=== PATIENT | female | born 1960 | race Caucasian/White ===

== ENCOUNTER 2016-05-22 08:49 | Day surgery (SDC) | payer OTHER ==
[2016-05-16 11:47] VITALS: BMI 25.9
[2016-05-22 09:14] VITALS: TEMP 98.6
[2016-05-22] MEDS ORDERED: IV FLUID CONTINUATION 400 ML IV ONE (10:14)
[2016-05-22] MEDS ORDERED: BENZOCAINE SPRAY 100 APPLIC/CAN MUCOUS MEM ONE ×2 (10:14→10:17)
[2016-05-22] MEDS ORDERED: MIDAZOLAM 2 MG/2 ML VIAL IVP ONE (10:21)
[2016-05-22] MEDS ORDERED: fentaNYL (PF) 50 MCG/ML 2 ML AMP IV ONE (10:21)
[2016-05-22] MEDS: MIDAZOLAM 2 MG/2 ML VIAL IV ONE ×2 (10:23→10:25)
[2016-05-22 11:07] VITALS: RESP 16
--- NOTE | 2016-05-22 11:26 | ECHOT ---
DATE OF SERVICE: 05/22/2016 PERFORMING PHYSICIAN: Serafin Chung MD, aqua ammonia operator. PROCEDURE PERFORMED: Transesophageal echocardiogram. INDICATION: This is a pleasant 55-year-old female patient who underwent transthoracic echocardiogram in the office, which showed mitral valve prolapse with moderate to severe MR. The SKYLER is for better clarification. COMPLICATIONS: None. LEVEL OF SEDATION: Moderate, and the patient was given a total of 3 mg of Versed on divided doses. PROCEDURE DESCRIPTION: After obtaining an informed consent, explaining the procedure, benefits, risks, complications and alternatives, the patient was brought to the transesophageal echocardiogram suite. A pulse oximetry and heart rate monitors were attached to the patient prior to the procedure. The patient's throat was sprayed using lidocaine locally. Following that, the patient was turned into left lateral position. A bite guard was placed and the patient was then sedated with the above doses of Versed and fentanyl in divided doses. Following that, the transesophageal echocardiogram probe was advanced through the bite guard into the mid esophagus where 2-D echocardiogram images as well as color Doppler images of various cardiac structures were obtained. We evaluated the interatrial septum using 2-D echocardiogram, color Doppler, and contrast study. The procedure was completed. There were no complications. FINDINGS: Left ventricular dimension and systolic function appeared to be within normal limits. Ejection fraction seems to be in the range of 55% to 60%. The right ventricle is of normal size and function. The left atrium appeared to be mildly dilated. The left atrial appendage appeared to be free from any thrombus. The interatrial septum appeared to be intact. The mitral valve appeared to be mildly thickened with evidence of moderate MR. There is moderate tricuspid regurgitation seen with mild pulmonary hypertension and RVSP of 42 mmHg. The aortic valve appeared to be trileaflet valve without stenosis or regurgitation. CONCLUSION: 1. Normal left ventricular dimension and systolic function. 2. Normal right ventricular dimension and systolic function. 3. Mild biatrial enlargement. 4. Normal left atrial appendage without any evidence of thrombus. 5. Intact interatrial septum without any evidence of shunt. 6. Mildly thickened mitral valve leaflets with moderate mitral regurgitation. 7. Moderate tricuspid regurgitation. 8. Mild pulmonary hypertension. 9. Normal aortic valve without evidence of stenosis or regurgitation. 10. Normal aortic root dimension.
[2016-05-22 11:29] VITALS: BP 109/60; PULSE 62
== END 2016-05-22 11:56 | disposition home or self-care (01) ==
LOC: CATHCVL 08:49
PROVIDERS: ATTEND Internal Medicine Interventional Cardiology
DX: I08.1 Rheumatic disorders of both mitral and tricuspid valves (principal); I27.2 Other secondary pulmonary hypertension; I10 Essential (primary) hypertension; E78.5 Hyperlipidemia, unspecified; Z87.891 Personal history of nicotine dependence; Z82.3 Family history of stroke; Z82.49 Family history of ischemic heart disease and other diseases of the circulatory system; Z79.82 Long term (current) use of aspirin; Z79.899 Other long term (current) drug therapy
CPT/HCPCS: 99152; 93312; 93320; 93325; J2250; J3010

== ENCOUNTER 2018-06-30 14:07 | Emergency (ER) | payer OTHER ==
[2018-06-30] MEDS ORDERED: MORPHINE SULFATE 4 MG/ML SYRINGE IV STA (14:54)
[2018-06-30] MEDS ORDERED: METOCLOPRAMIDE 5 MG/ML 2 ML VIAL IVP STA (14:54)
[2018-06-30] MEDS ORDERED: diphenhydrAMINE 50 MG/ML 1 ML VIAL IVP STA (14:54)
[2018-06-30] MEDS ORDERED: SODIUM CHLORIDE 0.9% 1,000 ML IV STA (14:54)
--- NOTE | 2018-06-30 15:08 | ED ---
General Adult HPI - General Chief complaint: Headache Stated complaint: Dizzy,nausea, headache,weak Time Seen by Provider: 06/30/18 14:31 Source: patient, RN notes reviewed, old records reviewed Mode of arrival: wheelchair Limitations: no limitations - History of Present Illness Initial comments: 57-year-old female patient with past medical history of hyperlipidemia, hypertension, mitral valve prolapse presents to ED with 5 days of waxing and waning left temporal/left frontal lobe headache. Patient reports that she first noticed this headache on 06/26. Patient reports that she went to her primary care physician, she was administered Toradol which improved the headache and she was discharged without further intervention. Patient reports that on 06/27 she presented to urgent care with this complaint of headache, patient reports that they were concerned about a complaint of her left temporal artery location and she was referred to ophthalmology. Patient reports that she has had waxing and waning headaches in the same location until today. Patient reports that she had a appointment with her flat surfacer today and it was requested that she presented to flat surfacer in [place] for a temporal artery biopsy. Patient reports that she cancel this appointment and will follow-up with a general surgeon in this region who will perform the temporal artery biopsy. Patient presents to ER for further evaluation. Patient denies changes in thunderclap, vision, fevers, emesis, diarrhea, chest pain, shortness of breath, abdominal pain. Patient does complain of some nausea without emesis. Systemic: Pt denies fatigue, myalgia, fever/chills, rash. Pt denies weakness, night sweats, weight loss. Neuro: Pt denies visual disturbances, syncope or pre-syncope. HEENT: Pt denies ocular discharge or irritation, otalgia, rhinorrhea, pharyngitis or notable lymphadenopathy. Cardiopulmonary: Pt denies chest pain, SOB, heart palpitations, dyspnea on exertion. Abdominal/GI: Pt denies abdominal pain, v/d. : Pt denies dysuria, burning w/ urination, frequency/urgency. Denies new onset urinary or bowel incontinence. MSK: Pt denies myalgia, loss of strength or function in extremities. Neuro: Pt denies new onset weakness, paresthesias. - Related Data Home Medications Medication Instructions Recorded Confirmed Fish Oil/Dha/Epa [Fish Oil 1,200 1 each PO DAILY 04/01/16 06/30/18 mg Fish Oil] Multivitamins, Thera [Multivitamin 1 tab PO DAILY 04/01/16 06/30/18 (formulary)] Vitamin B Complex 1 each PO DAILY 04/01/16 06/30/18 Butalb/Acetaminophen/Caffeine 1 cap PO Q4HR PRN 06/30/18 06/30/18 [Fioricet 50-300-40 mg Capsule] Carvedilol [Coreg] 6.25 - 12.5 mg PO TID 06/30/18 06/30/18 Doxycycline [Vibramycin] 100 mg PO BID 06/30/18 06/30/18 LORazepam [Ativan] 1 mg PO HS PRN 06/30/18 06/30/18 cloNIDine HCL [Catapres] 0.1 mg PO DAILY PRN 06/30/18 06/30/18 hydrALAZINE HCL [Apresoline] 50 mg PO TID 06/30/18 06/30/18 Allergies Allergy/AdvReac Type Severity Reaction Status Date / Time ciprofloxacin [From Cipro] Allergy Unknown Verified 06/30/18 14:45 nifedipine [From Procardia] Allergy Swelling Verified 06/30/18 14:45 Review of Systems ROS Statement: Those systems with pertinent positive or pertinent negative responses have been documented in the HPI. ROS Other: All systems not noted in ROS Statement are negative. Past Medical History Past Medical History: GERD/Reflux, Hyperlipidemia, Hypertension, Mitral Valve Prolapse (MVP), Osteoarthritis (OA) Additional Past Medical History / Comment(s): SOB, hiatal hernia History of Any Multi-Drug Resistant Organisms: None Reported Past Surgical History: Cholecystectomy, Heart Catheterization Additional Past Surgical History / Comment(s): laparoscopies Past Anesthesia/Blood Transfusion Reactions: No Reported Reaction, Family History of Problems w/ Anesthesia Additional Past Anesthesia/Blood Transfusion Reaction / Comment(s): mom has a hard time coming out Past Psychological History: Anxiety Smoking Status: Former smoker Past Alcohol Use History: Daily Past Drug Use History: None Reported - Past Family History Mother Family Medical History: Hyperlipidemia, Hypertension Father Family Medical History: Mitral Valve Prolapse (MVP) Additional Family Medical History / Comment(s): brain bleed General Exam - General Exam Comments Initial Comments: Constitutional: NAD, AOX3, Pt has pleasant affect. HEENT: NC/AT, trachea midline, neck supple, no lymphadenopathy. Posterior pharynx non erythematous, without exudates. External ears appear normal, without discharge. Mucous membranes moist. Eyes PERRLA, EOM intact. There is no scleral icterus. No pallor noted. Cardiopulmonary: RRR, no murmurs, rubs or gallops, no JVD noted. Lungs CTAB in anterior and posterior nelson. No peripheral edema. L temporal region mildly tender to palpation, no erythema, no warmth, no palpable cord. Abdominal exam: Abdomen soft and non-distended. Abdomen non-tender to palpation in all 4 quadrants. Bowel sounds active in LLQ. No hepatosplenomegaly. No ecchymosis Neuro: CN II-XII intact. No nuchal rigidity. No focal deficit, no facial droop. MSK: No posterior calf tenderness bilaterally, homans sign negative bilaterally. Posterior tibialis and radial pulse +2 bilaterally. Sensation intact in upper and lower extremities. Full active ROM in upper and lower extremities, 5/5 stregnth. Limitations: no limitations Course Vital Signs 06/30/18 14:12 Temperature 98.4 F Pulse Rate 70 Respiratory 18 Rate Blood Pressure 142/84 O2 Sat by Pulse 99 Oximetry Medical Decision Making - Medical Decision Making 57-year-old female patient with past medical history of hyperlipidemia, hypertension, mitral valve prolapse presents to ED with 5 days of waxing and waning left temporal/left frontal lobe headache. Patient reports that she first noticed this headache on 06/26. Patient reports that she went to her primary care physician, she was administered Toradol which improved the headache and she was discharged without further intervention. Patient reports that on 06/27 she presented to urgent care with this complaint of headache, patient reports that they were concerned about a complaint of her left temporal artery location and she was referred to ophthalmology. Patient reports that she has had waxing and waning headaches in the same location until today. Patient reports that she had a appointment with her flat surfacer today and it was requested that she presented to flat surfacer in [place] for a temporal artery biopsy. Patient reports that she cancel this appointment and will follow-up with a general surgeon in this region who will perform the temporal artery biopsy. Patient presents to ER for further evaluation. Patient denies changes in vision, fevers, emesis, diarrhea, chest pain, shortness of breath, abdominal pain. Patient does complain of some nausea without emesis. Patient vital signs stable, afebrile. Physical exam displayed: CN II-XII intact. No nuchal rigidity. No focal deficit, no facial droop. L temporal region mildly tender to palpation, no erythema, no warmth, no palpable cord. Laboratory investigations revealed noncompressive CBC, BMP. CRP less than 5.0. ESR 7. EKG not concerning for acute ischemia. Patient headache resolved with pharmacologic intervention. Patient to return with follow-up with primary care provider. Patient will follow-up with flat surfacer tomorrow noted to have a temporal artery biopsy performed. Patient also referred to on-call ophthalmology. Patient to return to ER if new signs symptoms develop or if condition worsens in any way. Case discussed with Dr. Delatorre. - Lab Data Result diagrams: 06/30/18 15:30 06/30/18 15:30 Lab Results 06/30/18 06/30/18 Range/Units 15:30 15:30 WBC 3.0 L (3.8-10.6) k/uL RBC 4.45 (3.80-5.40) m/uL Hgb 14.0 (11.4-16.0) gm/dL Hct 43.5 (34.0-46.0) % MCV 97.8 (80.0-100.0) fL MCH 31.5 (25.0-35.0) pg MCHC 32.3 (31.0-37.0) g/dL RDW 12.4 (11.5-15.5) % Plt Count 246 (150-450) k/uL Neutrophils % 46 % Lymphocytes % 41 % Monocytes % 5 % Eosinophils % 3 % Basophils % 1 % Neutrophils # 1.4 (1.3-7.7) k/uL Lymphocytes # 1.2 (1.0-4.8) k/uL Monocytes # 0.2 (0-1.0) k/uL Eosinophils # 0.1 (0-0.7) k/uL Basophils # 0.0 (0-0.2) k/uL ESR 7 (0-20) mm/hr Sodium 139 (137-145) mmol/L Potassium 4.8 (3.5-5.1) mmol/L Chloride 106 (98-107) mmol/L Carbon Dioxide 23 (22-30) mmol/L Anion Gap 10 mmol/L BUN 14 (7-17) mg/dL Creatinine 0.58 (0.52-1.04) mg/dL Est GFR (CKD-EPI)AfAm >90 (>60 ml/min/1.73 sqM) Est GFR (CKD-EPI)NonAf >90 (>60 ml/min/1.73 sqM) Glucose 89 (74-99) mg/dL Calcium 10.2 (8.4-10.2) mg/dL C-Reactive Protein <5.0 (<10.0) mg/L - EKG Data -: EKG Interpreted by Me (and dr delatorre ) EKG Comments: Ventricular rate 72,. 07/14/1948, QRS 100, QT/QTc 4:30/470. Normal sinus rhythm, normal EKG, no concerns for acute ischemia. Disposition Clinical Impression: Acute headache Disposition: HOME SELF-CARE Condition: Stable Instructions (If sedation given, give patient instructions): Acute Headache (ED) Additional Instructions: Patient to adhere to previously discussed treatment plan and will take medication(s) as directed. Patient to follow up with PCP in 1-2 days. Patient to return to ED if symptoms do not improve. Please follow-up with flat surfacer tomorrow in order to have temporal artery biopsy performed. Please follow-up with primary care provider tomorrow for further evaluation. On-call ophthalmology referral provided if unable to establish care with previously offered flat surfacer. Return to ER if condition worsens in any way. Is patient prescribed a controlled substance at d/c from ED?: No Referrals: Dorina Mckeon MD [Primary Care Provider] - 1-2 days Sri Cooper MD [STAFF PHYSICIAN] - 1-2 days
[2018-06-30 15:55] LABS: Basophils % (A) 1 %; Eosinophils # (A) 0.1 k/uL (0-0.7); Eosinophils % (A) 3 %; HCT 43.5 % (34.0-46.0); Lymphocytes # (A) 1.2 k/uL (1.0-4.8); Lymphocytes % (A) 41 %; MCH 31.5 pg (25.0-35.0); MCHC 32.3 g/dL (31.0-37.0); MCV 97.8 fL (80.0-100.0); Mean Platelet Volume 6.2; Monocytes # (A) 0.2 k/uL (0-1.0); Monocytes % (A) 5 %; Neutrophils # (A) 1.4 k/uL (1.3-7.7); Neutrophils % (A) 46 %; Platelet Count 246 k/uL (150-450); RBC 4.45 m/uL (3.80-5.40); RDW 12.4 % (11.5-15.5)
[2018-06-30 16:06] LABS: Anion Gap 10 mmol/L; Blood Urea Nitrogen 14 mg/dL (7-17); C Reactive Protein <5.0 mg/L (<10.0); Calcium 10.2 mg/dL (8.4-10.2); Carbon Dioxide 23 mmol/L (22-30); Chloride 106 mmol/L (98-107); Glucose 89 mg/dL (74-99); Potassium 4.8 mmol/L (3.5-5.1); Sodium 139 mmol/L (137-145)
--- NOTE | 2018-06-30 16:17 | CT ---
EXAMINATION TYPE: CT brain wo con DATE OF EXAM: 06/30/2018 COMPARISON: None HISTORY: 57-year-old female Headache for 4-5 days with weakness. TECHNIQUE: Examination was done in axial plane without intravenous contrast. Coronal and sagittal r econstructions performed. CT DLP: 1142.4 mGycm Automated exposure control for dose reduction was used. FINDINGS: There is no evidence of acute intracranial hemorrhage, acute ischemic changes, mass, mass-effect, or extra-axial fluid collection. There is no effacement of cerebral sulci or basal subarachnoid cister ns. There is no hydrocephalus. There is no midline shift. Baird-white matter distinction is preserv ed. Normal variation with mild hyperostosis frontalis interna. Trace mucosal thickening and air cells. Mastoid air cells are well pneumatized. Orbits and globes are intact. IMPRESSION: No acute intracranial abnormality seen. Trace chronic ethmoid sinus disease.
[2018-06-30 16:50] LABS: Erythrocyte Sedimentation Rate 7 mm/hr (0-20)
[2018-06-30 17:44] VITALS: RESP 20
[2018-06-30 18:40] VITALS: BP 133/80; PULSE 56; TEMP 98
== END 2018-06-30 18:35 | disposition home or self-care (01) ==
LOC: EC 14:07
DX: R51 Headache (principal); R53.1 Weakness; R11.0 Nausea; R42 Dizziness and giddiness; I10 Essential (primary) hypertension; I34.1 Nonrheumatic mitral (valve) prolapse; Z95.818 Presence of other cardiac implants and grafts; Z87.891 Personal history of nicotine dependence; Z79.899 Other long term (current) drug therapy; Z88.1 Allergy status to other antibiotic agents; Z88.8 Allergy status to other drugs, medicaments and biological substances
CPT/HCPCS: 36415; 93005; 80048; 85652; 85025; 86140; 70450; 99285; 96374; 96375 ×2; 96361; J2270; J1200; J2765

== ENCOUNTER 2018-11-11 15:37 | Observation (INO) | payer OTHER ==
[2018-11-11] MEDS ORDERED: ASPIRIN 81 MG PO STA (16:08)
[2018-11-11] MEDS ORDERED: NITROGLYCERIN OINT 1 INCH/GM PACKET TOPICAL STA (16:08)
--- NOTE | 2018-11-11 16:11 | ED ---
General Adult HPI - General Chief complaint: Chest Pain Stated complaint: DIZZINESS, CHEST PAIN, LEFT ARM PAIN Time Seen by Provider: 11/11/18 15:54 Source: patient, RN notes reviewed Mode of arrival: wheelchair Limitations: no limitations - History of Present Illness Initial comments: Patient is a pleasant 58-year-old female presenting to the emergency Department with chest discomfort. Onset of symptoms was this morning. Symptoms have been present throughout most the day. Symptoms are improved somewhat and currently discomfort is 4/10. Discomfort is described as pressure. There is some radiation to the neck. Patient does have history of similar symptoms previously associated with heart attack in July. Patient was at [facility] several days ago with similar symptoms. Patient does have some associated dyspnea. No nausea or diaphoresis. - Related Data Home Medications Medication Instructions Recorded Confirmed Fish Oil/Dha/Epa [Fish Oil 1,200 1 each PO DAILY 04/01/16 11/11/18 mg Fish Oil] Multivitamins, Thera [Multivitamin 1 tab PO DAILY 04/01/16 11/11/18 (formulary)] Vitamin B Complex 1 each PO DAILY 04/01/16 11/11/18 hydrALAZINE HCL [Apresoline] 50 mg PO TID 06/30/18 11/11/18 Aspirin [Ozone Aspirin EC] 81 mg PO DAILY 11/11/18 11/11/18 Atorvastatin [Lipitor] 10 mg PO HS 11/11/18 11/11/18 Carvedilol [Coreg] 12.5 mg PO BID 11/11/18 11/11/18 LORazepam [Ativan] 1 mg PO TID PRN 11/11/18 11/11/18 Nitroglycerin Sl Tabs [Nitrostat] 0.4 mg SL Q5M PRN 11/11/18 11/11/18 Spironolactone [Aldactone] 25 mg PO DAILY 11/11/18 11/11/18 Allergies Allergy/AdvReac Type Severity Reaction Status Date / Time ciprofloxacin [From Cipro] Allergy Unknown Verified 11/11/18 16:03 morphine Allergy Unknown Verified 11/11/18 16:03 nifedipine [From Procardia] Allergy Swelling Verified 11/11/18 16:03 Review of Systems ROS Statement: Those systems with pertinent positive or pertinent negative responses have been documented in the HPI. ROS Other: All systems not noted in ROS Statement are negative. Constitutional: Denies: fever Eyes: Denies: eye pain ENT: Denies: ear pain Respiratory: Reports: dyspnea Cardiovascular: Reports: chest pain Endocrine: Denies: fatigue Gastrointestinal: Denies: abdominal pain Genitourinary: Denies: dysuria Musculoskeletal: Denies: back pain Skin: Denies: rash Neurological: Denies: weakness Past Medical History Past Medical History: Coronary Artery Disease (CAD), GERD/Reflux, Hyperlipidemia, Hypertension, Myocardial Infarction ([place]), Mitral Valve Prolapse (MVP), Osteoarthritis (OA) Additional Past Medical History / Comment(s): SOB, hiatal hernia History of Any Multi-Drug Resistant Organisms: None Reported Past Surgical History: Cholecystectomy, Heart Catheterization Additional Past Surgical History / Comment(s): laparoscopies Past Anesthesia/Blood Transfusion Reactions: No Reported Reaction, Family History of Problems w/ Anesthesia Additional Past Anesthesia/Blood Transfusion Reaction / Comment(s): mom has a hard time coming out Past Psychological History: Anxiety Smoking Status: Former smoker Past Alcohol Use History: Daily Past Drug Use History: None Reported - Past Family History Mother Family Medical History: Hyperlipidemia, Hypertension Father Family Medical History: Mitral Valve Prolapse (MVP) Additional Family Medical History / Comment(s): brain bleed General Exam Limitations: no limitations General appearance: alert, in no apparent distress Head exam: Present: atraumatic Eye exam: Present: normal appearance, PERRL ENT exam: Present: normal oropharynx Neck exam: Present: normal inspection Respiratory exam: Present: normal lung sounds bilaterally. Absent: chest wall tenderness Cardiovascular Exam: Present: regular rate, normal rhythm Expanded Peripheral pulses: 2+: Radial (R), Radial (L), Dorsalis Pedis (R), Dorsalis Pedis (L) GI/Abdominal exam: Present: soft. Absent: tenderness Extremities exam: Present: normal inspection. Absent: pedal edema, calf tenderness Neurological exam: Present: alert Psychiatric exam: Present: normal affect, normal mood Skin exam: Present: normal color Course Vital Signs 11/11/18 15:41 Temperature 98.7 F Pulse Rate 70 Respiratory 16 Rate Blood Pressure 150/91 O2 Sat by Pulse 99 Oximetry EKG Findings - EKG Comments: EKG Findings:: Normal sinus rhythm 65. NM 150. QRS 96. QT 418. QTC 434. Normal axis. Normal QRS. No acute ST change. Medical Decision Making - Medical Decision Making Patient reevaluated and resting comfortably in bed. Patient updated on results and plan. Case was discussed in detail with Dr. Mejia, covering for Dr. Hernandez, who will admit. - Lab Data Result diagrams: 11/11/18 16:45 11/11/18 16:45 Lab Results 11/11/18 11/11/18 11/11/18 Range/Units 16:45 16:45 16:45 WBC 3.1 L (3.8-10.6) k/uL RBC 4.24 (3.80-5.40) m/uL Hgb 13.7 (11.4-16.0) gm/dL Hct 40.7 (34.0-46.0) % MCV 95.9 (80.0-100.0) fL MCH 32.2 (25.0-35.0) pg MCHC 33.6 (31.0-37.0) g/dL RDW 13.6 (11.5-15.5) % Plt Count 247 (150-450) k/uL Neutrophils % 57 % Lymphocytes % 31 % Monocytes % 5 % Eosinophils % 3 % Basophils % 1 % Neutrophils # 1.8 (1.3-7.7) k/uL Lymphocytes # 1.0 (1.0-4.8) k/uL Monocytes # 0.2 (0-1.0) k/uL Eosinophils # 0.1 (0-0.7) k/uL Basophils # 0.0 (0-0.2) k/uL PT 10.2 (9.0-12.0) sec INR 0.9 (<1.2) APTT 23.5 (22.0-30.0) sec D-Dimer 0.23 (<0.60) mg/L FEU Sodium 137 (137-145) mmol/L Potassium 4.2 (3.5-5.1) mmol/L Chloride 104 (98-107) mmol/L Carbon Dioxide 26 (22-30) mmol/L Anion Gap 7 mmol/L BUN 14 (7-17) mg/dL Creatinine 0.63 (0.52-1.04) mg/dL Est GFR (CKD-EPI)AfAm >90 (>60 ml/min/1.73 sqM) Est GFR (CKD-EPI)NonAf >90 (>60 ml/min/1.73 sqM) Glucose 109 H (74-99) mg/dL Calcium 9.9 (8.4-10.2) mg/dL Magnesium 2.0 (1.6-2.3) mg/dL Total Bilirubin 0.9 (0.2-1.3) mg/dL AST 24 (14-36) U/L ALT 28 (9-52) U/L Alkaline Phosphatase 60 (38-126) U/L Creatine Kinase 81 (30-135) U/L Troponin I (0.000-0.034) ng/mL NT-Pro-B Natriuret Pep pg/mL Total Protein 7.3 (6.3-8.2) g/dL Albumin 4.5 (3.5-5.0) g/dL 11/11/18 11/11/18 Range/Units 16:45 16:45 WBC (3.8-10.6) k/uL RBC (3.80-5.40) m/uL Hgb (11.4-16.0) gm/dL Hct (34.0-46.0) % MCV (80.0-100.0) fL MCH (25.0-35.0) pg MCHC (31.0-37.0) g/dL RDW (11.5-15.5) % Plt Count (150-450) k/uL Neutrophils % % Lymphocytes % % Monocytes % % Eosinophils % % Basophils % % Neutrophils # (1.3-7.7) k/uL Lymphocytes # (1.0-4.8) k/uL Monocytes # (0-1.0) k/uL Eosinophils # (0-0.7) k/uL Basophils # (0-0.2) k/uL PT (9.0-12.0) sec INR (<1.2) APTT (22.0-30.0) sec D-Dimer (<0.60) mg/L FEU Sodium (137-145) mmol/L Potassium (3.5-5.1) mmol/L Chloride (98-107) mmol/L Carbon Dioxide (22-30) mmol/L Anion Gap mmol/L BUN (7-17) mg/dL Creatinine (0.52-1.04) mg/dL Est GFR (CKD-EPI)AfAm (>60 ml/min/1.73 sqM) Est GFR (CKD-EPI)NonAf (>60 ml/min/1.73 sqM) Glucose (74-99) mg/dL Calcium (8.4-10.2) mg/dL Magnesium (1.6-2.3) mg/dL Total Bilirubin (0.2-1.3) mg/dL AST (14-36) U/L ALT (9-52) U/L Alkaline Phosphatase (38-126) U/L Creatine Kinase (30-135) U/L Troponin I <0.012 (0.000-0.034) ng/mL NT-Pro-B Natriuret Pep 127 pg/mL Total Protein (6.3-8.2) g/dL Albumin (3.5-5.0) g/dL - Radiology Data Radiology results: image reviewed (Chest x-ray shows no acute process) Disposition Clinical Impression: Chest pain Disposition: ADMITTED IP TO THIS HOSP Is patient prescribed a controlled substance at d/c from ED?: No Referrals: Dorina Mckeon MD [Primary Care Provider] - 1-2 days Decision Time: 18:06
--- NOTE | 2018-11-11 16:56 | XR ---
EXAMINATION: XR chest 2V DATE AND TIME: 11/11/2018 4:37 PM CLINICAL INDICATION: Chest Pain TECHNIQUE: Departmental protocol COMPARISON: None FINDINGS: The lungs are clear. The pleural spaces are negative. The cardiac silhouette is not enlarged. The remainder of the mediastinal silhouette is unremarkable. The skeletal structures and soft tissues are negative for acute findings. IMPRESSION: NO ACUTE PROCESS.
[2018-11-11 16:59] LABS: Basophils % (A) 1 %; Eosinophils # (A) 0.1 k/uL (0-0.7); Eosinophils % (A) 3 %; HCT 40.7 % (34.0-46.0); HGB 13.7 gm/dL (11.4-16.0); Lymphocytes % (A) 31 %; MCH 32.2 pg (25.0-35.0); MCHC 33.6 g/dL (31.0-37.0); MCV 95.9 fL (80.0-100.0); Mean Platelet Volume 6.8; Monocytes # (A) 0.2 k/uL (0-1.0); Monocytes % (A) 5 %; Neutrophils # (A) 1.8 k/uL (1.3-7.7); Neutrophils % (A) 57 %; Platelet Count 247 k/uL (150-450); RBC 4.24 m/uL (3.80-5.40); RDW 13.6 % (11.5-15.5); WBC 3.1 k/uL (3.8-10.6)
[2018-11-11 17:11] LABS: ALT 28 U/L (9-52); AST 24 U/L (14-36); African American GFR (CKD) >90 (>60 ml/min/1.73 sqM); Albumin 4.5 g/dL (3.5-5.0); Alkaline Phosphatase 60 U/L (38-126); Anion Gap 7 mmol/L; Blood Urea Nitrogen 14 mg/dL (7-17); Calcium 9.9 mg/dL (8.4-10.2); Carbon Dioxide 26 mmol/L (22-30); Chloride 104 mmol/L (98-107); Creatine Kinase 81 U/L (30-135); Glucose 109 mg/dL (74-99); Potassium 4.2 mmol/L (3.5-5.1); Sodium 137 mmol/L (137-145); Total Bilirubin 0.9 mg/dL (0.2-1.3); Total Protein 7.3 g/dL (6.3-8.2)
[2018-11-11 17:12] LABS: D-Dimer 0.23 mg/L FEU (<0.60); INR 0.9 (<1.2); Partial Thromboplastin Time 23.5 sec (22.0-30.0); Prothrombin Time 10.2 sec (9.0-12.0)
[2018-11-11] MEDS ORDERED: NITROGLYCERIN SL TABS 0.4 MG TAB SUBLINGUAL PRN (18:06)
[2018-11-11 18:43] VITALS: BMI 24.0
[2018-11-11] MEDS: CARVEDILOL 12.5 MG TAB PO SCH (20:25)
[2018-11-11] MEDS: LORazepam 1 MG TAB PO PRN (20:25)
[2018-11-11] MEDS ORDERED: ATORVASTATIN 10 MG TAB PO SCH (21:00)
[2018-11-11] MEDS: hydrALAZINE HCL 50 MG TAB PO SCH (21:46)
--- NOTE | 2018-11-12 01:06 | P.HPIM ---
History of Present Illness H&P Date: 11/11/18 Chief Complaint: Chest Pain Patient is a 58-year-old female with a known history of hypertension, hyperlipidemia, mitral valve prolapse, osteoarthritis and nonobstructive dya nary artery disease with recent catheterization on July 13, 2018 at [facility] came to ER with complaints of chest pain. Chest pain is mainly left retrosternal and radiating to the neck shoulder and left arm.8/in severity.10 Patient states that her left arm felt weak. Patient also states that her blood pressure is also elevated today. Patient was sitting at home when she developed sudden chest pain. Patient does have associated dyspnea. No nausea or diaphoresis. Patient does have history of similar symptoms previously associated with heart attack in July. Patient was at [facility] several days ago with similar symptoms. Pt. says that she has been stressful recently. EKG showed normal sinus. Troponin x2- D-dimer not elevated Review of Systems Constitutional: Patient denies any fever or chills . No generalized weakness or weight loss. Abdomen: Patient denied nausea vomiting and diarrhea and abdominal pain. Cardiovascular: Patient does have chest pain associated shortness of breath. No palpitations. No leg swelling.. Respiratory: patient denied any cough is from production. No shortness of breath Neurologic: Patient denied any numbness or tingling headache. Musculoskeletal: Patient denies any complaints of joint swelling or deformity. Skin: Negative Psychiatric: Depression Endocrine: No heat or cold intolerance. No recent weight gain. Genitourinary: No dysuria or hematuria. All other 14 point ROS negative except the above Past Medical History Past Medical History: Coronary Artery Disease (CAD), GERD/Reflux, Hyperlipidemia, Hypertension, Myocardial Infarction (SD), Mitral Valve Prolapse (MVP), Osteoarthritis (OA) Additional Past Medical History / Comment(s): SOB, hiatal hernia, H. Pylori in Sep 08 2018 Last Myocardial Infarction Date:: July 13 2018 History of Any Multi-Drug Resistant Organisms: None Reported Past Surgical History: Cholecystectomy, Heart Catheterization Additional Past Surgical History / Comment(s): laparoscopies, SKYLER (May 2016), heart cath with no stent 20% calcification in LAD in July 13, 2018 at [place]. Past Anesthesia/Blood Transfusion Reactions: No Reported Reaction, Family History of Problems w/ Anesthesia Additional Past Anesthesia/Blood Transfusion Reaction / Comment(s): mom has a hard time coming out Past Psychological History: Anxiety Smoking Status: Former smoker Past Alcohol Use History: Daily Additional Past Alcohol Use History / Comment(s): quit smoking 2007, smoked s efraín age 15, 1 PPD. 1-2 glasses wine daily Past Drug Use History: None Reported - Past Family History Mother Family Medical History: Hyperlipidemia, Hypertension Father Family Medical History: Mitral Valve Prolapse (MVP) Additional Family Medical History / Comment(s): brain bleed Medications and Allergies Home Medications Medication Instructions Recorded Confirmed Type Fish Oil/Dha/Epa [Fish Oil 1,200 1 each PO DAILY 04/01/16 11/11/18 History mg Fish Oil] Multivitamins, Thera [Multivitamin 1 tab PO DAILY 04/01/16 11/11/18 History (formulary)] Vitamin B Complex 1 each PO DAILY 04/01/16 11/11/18 History hydrALAZINE HCL [Apresoline] 50 mg PO TID 06/30/18 11/11/18 History Aspirin [Worth Aspirin EC] 81 mg PO DAILY 11/11/18 11/11/18 History Atorvastatin [Lipitor] 10 mg PO HS 11/11/18 11/11/18 History Carvedilol [Coreg] 12.5 mg PO BID 11/11/18 11/11/18 History LORazepam [Ativan] 1 mg PO TID PRN 11/11/18 11/11/18 History Nitroglycerin Sl Tabs [Nitrostat] 0.4 mg SL Q5M PRN 11/11/18 11/11/18 History Spironolactone [Aldactone] 25 mg PO DAILY 11/11/18 11/11/18 History Allergies Allergy/AdvReac Type Severity Reaction Status Date / Time ciprofloxacin [From Cipro] Allergy Unknown Verified 11/11/18 16:03 morphine Allergy Unknown Verified 11/11/18 16:03 nifedipine [From Procardia] Allergy Swelling Verified 11/11/18 16:03 Physical Exam Vitals: Vital Signs Temp Pulse Pulse Resp BP BP Pulse Ox 11/11/18 18:29 98.5 F 60 16 160/93 100 11/11/18 18:00 98.2 F 59 L 18 137/74 98 11/11/18 17:00 67 19 137/81 98 11/11/18 16:00 67 20 166/103 99 11/11/18 15:57 98 11/11/18 15:41 98.7 F 70 16 150/91 99 11/11/18 15:40 71 Intake and Output 11/11/18 11/11/18 11/11/18 06:59 14:59 22:59 Other: Weight 73.936 kg PHYSICAL EXAMINATION: Patient is lying in the bed comfortably, no acute distress, awake alert and oriented.. HEENT: Normocephalic. Neck is supple. Pupils reactive. Conjunctivae are red [id number] crusting at the side of the eyes. Nostrils clear. Oral cavity is moist. Ears reveal no drainage. Neck reveals no JVD, carotid bruits, or thyromegaly. CHEST EXAMINATION: Trachea is central. Symmetrical expansion. Bibasilar diminished air entry. No wheezing or crackles. Lung nelson clear to auscultation and percussion. CARDIAC: Normal S1, S2 with no gallops. No murmurs ABDOMEN: Soft. Bowel sounds normal. No organomegaly. No abdominal bruits. Extremities: reveal no edema. No clubbing or cyanosis Neurologically awake, alert, oriented x3 with well-coordinated movements. No focal deficits noted Skin: No rash or skin lesions. Psychiatric: Coperative. Nonsuicidal at this time. Depressed. Musculoskeletal: No joint swelling or deformity. Normal range of motion. Results CBC & Chem 7: 11/11/18 16:45 11/11/18 16:45 Labs: Abnormal Lab Results - Last 24 Hours (Table) 11/11/18 11/11/18 Range/Units 16:45 16:45 WBC 3.1 L (3.8-10.6) k/uL Glucose 109 H (74-99) mg/dL Thrombosis Risk Factor Assmnt - DVT/VTE Prophylaxis DVT/VTE Prophylaxis: Pharmacologic Prophylaxis ordered - Choose All That Apply Any of the Below Risk Factors Present?: Yes Each Factor Represents 1 point: Age 41-60 years Other Risk Factors: Yes Each Risk Factor Represents 3 Points: Family history of DVT/PE Other congenital or acquired thrombophilia - If yes, enter type in comment: No Thrombosis Risk Factor Assessment Total Risk Factor Score: 4 Thrombosis Risk Factor Assessment Level: Moderate Risk Assessment and Plan Assessment: Atypical chest pain. Likely related to anxiety. Rule out ACS. Nonobstructive coronary disease with history of recent cath in July 2018 GERD Anxiety Hypertension Hyperlipidemia History of SD Mitral valve prolapse Osteoarthritis Previous history of smoking Daily alcohol use GI/DVT proph. Plan: Patient will be continued on telemetry monitoring. Serial EKG and troponins. Continue with home medications and Ativan as needed for anxiety. Cardiology was consulted for further evaluation. Patient is currently chest pain-free. Patient has been counseled for alcohol abuse as well. Time with Patient: Greater than 30
[2018-11-12] MEDS: NITROGLYCERIN OINT 1 INCH/GM PACKET TOPICAL SCH ×2 (01:25→05:47)
[2018-11-12 06:10] LABS: Basophils % (A) 1 %; Eosinophils # (A) 0.1 k/uL (0-0.7); Eosinophils % (A) 3 %; HCT 36.4 % (34.0-46.0); HGB 12.2 gm/dL (11.4-16.0); Lymphocytes # (A) 1.5 k/uL (1.0-4.8); Lymphocytes % (A) 44 %; MCH 31.9 pg (25.0-35.0); MCHC 33.4 g/dL (31.0-37.0); MCV 95.3 fL (80.0-100.0); Mean Platelet Volume 6.6; Monocytes # (A) 0.2 k/uL (0-1.0); Monocytes % (A) 6 %; Neutrophils # (A) 1.5 k/uL (1.3-7.7); Neutrophils % (A) 43 %; Platelet Count 233 k/uL (150-450); RBC 3.81 m/uL (3.80-5.40); RDW 12.4 % (11.5-15.5); WBC 3.4 k/uL (3.8-10.6)
[2018-11-12 06:25] LABS: African American GFR (CKD) >90 (>60 ml/min/1.73 sqM); Anion Gap 7 mmol/L; Blood Urea Nitrogen 16 mg/dL (7-17); Calcium 9.5 mg/dL (8.4-10.2); Carbon Dioxide 27 mmol/L (22-30); Chloride 105 mmol/L (98-107); Cholesterol 168 mg/dL (<200); Glucose 107 mg/dL (74-99); HDL Cholesterol 57 mg/dL (40-60); LDL Cholesterol,Calculated 96 mg/dL (0-99); Potassium 4.6 mmol/L (3.5-5.1); Sodium 139 mmol/L (137-145); Triglycerides 77 mg/dL (<150)
[2018-11-12 07:41] VITALS: RESP 18; TEMP 97.7
[2018-11-12] MEDS ORDERED: HEPARIN SODIUM,PORCINE 5,000 UNIT/ML 1 ML VIAL SQ SCH (08:00)
[2018-11-12] MEDS: LORazepam 1 MG TAB PO PRN (08:27)
[2018-11-12] MEDS: CARVEDILOL 12.5 MG TAB PO SCH ×2 (08:40→10:38)
[2018-11-12] MEDS: hydrALAZINE HCL 50 MG TAB PO SCH ×2 (08:42→10:38)
[2018-11-12] MEDS ORDERED: NON-FORMULARY DRUG (Fish Oil/Dha/Epa [Fish Oil 1,200 Mg Fish Oil] 1 EACH) PO SCH (09:00)
[2018-11-12] MEDS ORDERED: THIAMINE 100 MG TAB PO SCH (09:00)
[2018-11-12] MEDS ORDERED: ASPIRIN 325 MG TAB PO SCH (09:00)
[2018-11-12] MEDS ORDERED: MULTIVITAMINS, THERA 1 EACH TAB PO SCH (09:00)
[2018-11-12] MEDS ORDERED: FAMOTIDINE 20 MG TAB PO SCH (09:00)
[2018-11-12] MEDS ORDERED: SPIRONOLACTONE 25 MG TAB PO SCH (09:00)
[2018-11-12] MEDS ORDERED: SODIUM CHLORIDE 0.9% 1,000 ML IV SCH (10:00)
--- NOTE | 2018-11-12 10:20 | CONS ---
CONSULTATION This is a 58-year-old lady with a known history of hypertension and also has had multiple episodes of chest discomfort over the last few years. Apparently in March 2016, she came in with chest pain had a cardiac cath which revealed mild disease in LAD with some calcification. However, prior to that and also after that episode, her stress tests were unremarkable. As recently as July of this year, she was transferred from [facility] with chest pain to [facility] and a cardiac cath according to the patient was unremarkable. She comes in with complaints of having pressure in the chest that seemed to have come on when she was at rest. She felt the discomfort moved to her neck and also to the back. The quality of the pain seems to be more or less unrelated to physical activity. Seemed to occur at rest and after she arrived her blood pressure was 150/90. She has not had any additional chest pain. Her 3 sets of troponins are normal. D-dimer is unremarkable. She is resting comfortably without symptoms. However, on reviewing the chart, it appears that she also had an episode of hypertension when she went in to [facility] and also her blood pressure is somewhat labile with some sudden elevation of blood pressures and feeling of uncomfortable nature. She is asymptomatic, resting comfortably without symptoms. I reviewed with her the details of her previous testing and she insists that she did not have any blockage on a cardiac cath, although this report is not available at this time from [facility] in July of this year. PAST MEDICAL HISTORY: Past medical history is remarkable for: 1. Hypertension. 2. Recurrent episodes of chest pain with a negative cardiac cath in July of this year. 3. Gastroesophageal reflux disease. 4. Hyperlipidemia. 5. History of osteoarthritis. Patient has had cholecystectomy in the past. MEDICATIONS: Medications at home include carvedilol 12.5 mg b.i.d., Lipitor 10 mg daily, Ativan 1 mg p.r.n., Aldactone 25 mg daily. She also takes some fish oil, hydralazine 50 mg t.i.d., aspirin 81 mg daily. ALLERGIES: She is allergic to MORPHINE, NIFEDIPINE and CIPRO. PHYSICAL EXAMINATION: On examination, blood pressure is 118/70, pulse rate is 70 per minute regular. HEENT unremarkable. Fundus was not examined by me. Neck is supple. No JVD. I do not hear a carotid bruit. There is no thyromegaly. Heart exam reveals S1, S2 heard normally. No rub, murmur or gallop. Lungs are clear. Abdomen is soft, nontender. Lower extremities reveal normal pulses. No edema. Central nervous system is normal. EKG revealed sinus mechanism, no acute changes. LABORATORY DATA: Laboratory data revealed that 3 sets of troponins are normal. No other significant abnormalities detected. D-dimer was normal. IMPRESSION: 1. Atypical chest pain with recent unremarkable cardiac cath. 2. Hypertension. 3. Hyperlipidemia. 4. Degenerative joint disease. 5. Past history of smoking, which she has quit. RECOMMENDATIONS: I believe her pain is atypical. However given her hypertension and chest pain radiating to the back and neck, I am recommending a CT angiography to rule out any aortic pathology and once this study is done, if this is normal she can be discharged and follow with her primary care physician. She will probably benefit from pulmonary evaluation to rule out any bronchial asthma as an outpatient. I discussed this at length with the patient. If the CT angio is negative, she can be discharged. Thank you very much for the consult. MMODL / IJN: [id number] /
--- NOTE | 2018-11-12 11:02 | CT ---
EXAMINATION TYPE: CT angio chest DATE OF EXAM: 11/12/2018 10:43 AM COMPARISON: None HISTORY: Chest pain and tightness CT DLP: 463.2 mGycm Automated exposure control for dose reduction was used. CONTRAST: CTA scan of the thorax is performed with IV Contrast, patient injected with 100 mL of Isovue 370, pul monary embolism protocol. . FINDINGS: LUNGS: Emphysematous changes are noted in a paraseptal distribution. No evidence of vascular congesti on. Subsegmental changes posteriorly are most typical of atelectasis. No consolidative pneumonia, ple ural effusion, or pneumothorax. Mild interlobular septal thickening likely represents mild chronic in terstitial lung disease. MEDIASTINUM: Aorta appears to be of normal caliber but is suboptimally enhanced. Heart size normal. C oronary artery calcifications are seen. The pulmonary artery enhances normally. No diagnostic evidence of pulmonary embolism. OTHER: Atrophic and degenerative change of the spine. Postcholecystectomy changes noted. IMPRESSION: 1. No evidence of pulmonary embolism. 2. Coronary artery atherosclerotic changes.
[2018-11-12 11:21] VITALS: BP 134/81; PULSE 68
--- NOTE | 2018-11-12 12:52 | P.DS ---
Providers Date of admission: 11/11/18 18:07 Attending physician: Liseth Mejia Consults: 11/11/18 18:07 Consult Physician Urgent Consulting Provider: Dylan Rajan Consult Reason/Comments: cp Do you want consulting provider notified?: Yes Primary care physician: Dorina [facility] Course: 58-year-old female with a known history of hypertension, hyperlipidemia, mitral valve prolapse, osteoarthritis and nonobstructive coronary artery disease with recent catheterization on July 13, 2018 at [facility] came to ER with complaints of chest pain. Chest pain is mainly left retrosternal and radiating to the neck shoulder and left arm.8/in severity.10 Patient states that her left arm felt weak. Patient also states that her blood pressure is also elevated today. Patient was sitting at home when she developed sudden chest pain. Patient does have associated dyspnea. No nausea or diaphoresis. Patient does have history of similar symptoms previously associated with heart attack in July. Patient was at [facility] several days ago with similar symptoms. Pt. says that she has been stressful recently. 11/12/2018 No overnight events patient is clinically doing well no more chest pain. Patient was evaluated by cardiology cleared for discharge rule out acute coronary syndromes. Patient's symptoms appears to be secondary to anxiety although patient wanted to follow with PCP for SSRIs and her throat pain. Patient was hypotensive state because of which I do not believe she will need hydralazine hydralazine will be discontinued Coreg will be continued. Patient doesn't have any history of systolic dysfunction. PHYSICAL EXAMINATION: GENERAL: The patient is alert and oriented x3, not in any acute distress. Well developed, well nourished. HEENT: Pupils are round and equally reacting to light. EOMI. No scleral icterus. No conjunctival pallor. Normocephalic, atraumatic. No pharyngeal erythema. No thyromegaly. CARDIOVASCULAR: S1 and S2 present. No murmurs, rubs, or gallops. PULMONARY: Chest is clear to auscultation, no wheezing or crackles. ABDOMEN: Soft, nontender, nondistended, normoactive bowel sounds. No palpable organomegaly. MUSCULOSKELETAL: No joint swelling or deformity. EXTREMITIES: No cyanosis, clubbing, or pedal edema. NEUROLOGICAL: Gross neurological examination did not reveal any focal deficits. SKIN: No rashes. Please refer to dictation of H&P from Dr. Mejia for further details of hospitalization course and other chronic medical problems that were addressed Plan - Discharge Summary New Discharge Prescriptions: Continue Vitamin B Complex 1 each PO DAILY Multivitamins, Thera [Multivitamin (formulary)] 1 tab PO DAILY Fish Oil/Dha/Epa [Fish Oil 1,200 mg Fish Oil] 1 each PO DAILY Spironolactone [Aldactone] 25 mg PO DAILY Nitroglycerin Sl Tabs [Nitrostat] 0.4 mg SL Q5M PRN PRN Reason: Chest Pain Atorvastatin [Lipitor] 10 mg PO HS LORazepam [Ativan] 1 mg PO TID PRN PRN Reason: Anxiety Carvedilol [Coreg] 12.5 mg PO BID Aspirin [Mckean Aspirin EC] 81 mg PO DAILY Discontinued hydrALAZINE HCL [Apresoline] 50 mg PO TID Discharge Medication List Fish Oil/Dha/Epa [Fish Oil 1,200 mg Fish Oil] 1 each PO DAILY 04/01/16 [History] Multivitamins, Thera [Multivitamin (formulary)] 1 tab PO DAILY 04/01/16 [History] Vitamin B Complex 1 each PO DAILY 04/01/16 [History] Aspirin [Mckean Aspirin EC] 81 mg PO DAILY 11/11/18 [History] Atorvastatin [Lipitor] 10 mg PO HS 11/11/18 [History] Carvedilol [Coreg] 12.5 mg PO BID 11/11/18 [History] LORazepam [Ativan] 1 mg PO TID PRN 11/11/18 [History] Nitroglycerin Sl Tabs [Nitrostat] 0.4 mg SL Q5M PRN 11/11/18 [History] Spironolactone [Aldactone] 25 mg PO DAILY 11/11/18 [History] Follow up Appointment(s)/Referral(s): Dorina Mckeon MD [Primary Care Provider] - 11/13/18 (keep already scheduled appointment.) Discharge Disposition: HOME SELF-CARE
== END 2018-11-12 13:00 | disposition home or self-care (01) ==
LOC: EC 15:37 → 1SOBS 18:07
PROVIDERS: ADMIT Internal Medicine; ATTEND Internal Medicine
DX: R07.89 Other chest pain (principal); R07.0 Pain in throat; R06.00 Dyspnea, unspecified; M79.602 Pain in left arm; R53.1 Weakness; F41.9 Anxiety disorder, unspecified; I10 Essential (primary) hypertension; E78.5 Hyperlipidemia, unspecified; I95.9 Hypotension, unspecified; M19.90 Unspecified osteoarthritis, unspecified site; I25.10 Atherosclerotic heart disease of native coronary artery without angina pectoris; K21.9 Gastro-esophageal reflux disease without esophagitis; I34.1 Nonrheumatic mitral (valve) prolapse; I25.2 Old myocardial infarction; Z79.899 Other long term (current) drug therapy; Z79.82 Long term (current) use of aspirin; Z88.5 Allergy status to narcotic agent; Z88.8 Allergy status to other drugs, medicaments and biological substances; Z88.1 Allergy status to other antibiotic agents; Z90.49 Acquired absence of other specified parts of digestive tract; Z87.891 Personal history of nicotine dependence; Z84.89 Family history of other specified conditions; Z82.49 Family history of ischemic heart disease and other diseases of the circulatory system; Z83.2 Family history of diseases of the blood and blood-forming organs and certain disorders involving the immune mechanism
CPT/HCPCS: 96360; 96361; 96372; 99285; 36415; 93005; 85379; 83880; 80061; 80053; 80048; 82550; 83735; 84484 ×2; 85025 ×2; 85610; 85730; 71046; 71275; G0378 ×2; J1644; Q9967

== ENCOUNTER 2019-12-08 19:31 | Observation (INO) | payer OTHER ==
[2019-12-08] MEDS ORDERED: ASPIRIN 81 MG PO STA (19:48)
[2019-12-08] MEDS ORDERED: NITROGLYCERIN SL TABS 0.4 MG TAB SUBLINGUAL STA (19:48)
--- NOTE | 2019-12-08 19:54 | ED ---
Chest Pain HPI - General Chief Complaint: Chest Pain Stated Complaint: Chest Pain Time Seen by Provider: 12/08/19 19:42 Source: patient, RN notes reviewed, old records reviewed Mode of arrival: ambulatory Limitations: no limitations - History of Present Illness Initial Comments: This is a 59-year-old female with a history of an and STEMI done approximately a year ago who presents today with complaints of chest pain. He states the pain initially started 2 days ago was intermittent throughout the day. From her chest up to her jaw and neck she states yesterday she was fine but today she had recurrence of the pain is pretty much steady all day and 7/10 achy pain she also has some epigastric discomfort also. This is somewhat sharper. She has a na usea though she has had some feeling of reflux no vomiting no fevers chills or sweats no cough or phlegm production no other symptoms she states it feels identical to her previous episode he urine ago except for the abdominal component. MD Complaint: chest pain, other - Related Data Home Medications Medication Instructions Recorded Confirmed Fish Oil/Dha/Epa [Fish Oil 1,200 1 each PO DAILY 04/01/16 11/11/18 mg Fish Oil] Multivitamins, Thera [Multivitamin 1 tab PO DAILY 04/01/16 11/11/18 (formulary)] Vitamin B Complex 1 each PO DAILY 04/01/16 11/11/18 Aspirin [Hill Aspirin EC] 81 mg PO DAILY 11/11/18 11/11/18 Atorvastatin [Lipitor] 10 mg PO HS 11/11/18 11/11/18 Carvedilol [Coreg] 12.5 mg PO BID 11/11/18 11/11/18 LORazepam [Ativan] 1 mg PO TID PRN 11/11/18 11/11/18 Nitroglycerin Sl Tabs [Nitrostat] 0.4 mg SL Q5M PRN 11/11/18 11/11/18 Spironolactone [Aldactone] 25 mg PO DAILY 11/11/18 11/11/18 Allergies Allergy/AdvReac Type Severity Reaction Status Date / Time ciprofloxacin [From Cipro] Allergy Unknown Verified 12/08/19 19:35 Macrolide Antibiotics Allergy Unknown Verified 12/08/19 19:35 morphine Allergy Unknown Verified 12/08/19 19:35 nifedipine [From Procardia] Allergy Swelling Verified 12/08/19 19:35 Review of Systems ROS Statement: Those systems with pertinent positive or pertinent negative responses have been documented in the HPI. ROS Other: All systems not noted in ROS Statement are negative. EKG Findings - EKG Results: EKG: sinus rhythm (QRS 100 QT/ QTc 406/450 to QA changes seen this is identical to an EKG dated ) Past Medical History Past Medical History: Coronary Artery Disease (CAD), GERD/Reflux, Hyperlipidemia, Hypertension, Myocardial Infarction (OR), Mitral Valve Prolapse (MVP), Osteoarthritis (OA) Additional Past Medical History / Comment(s): SOB, hiatal hernia, H. Pylori in Sep 08 2018 Last Myocardial Infarction Date:: July 13 2018 History of Any Multi-Drug Resistant Organisms: None Reported Past Surgical History: Cholecystectomy, Heart Catheterization Additional Past Surgical History / Comment(s): laparoscopies, SKYLER (May 2016), heart cath with no stent 20% calcification in LAD in July 13, 2018 at [place]. Past Anesthesia/Blood Transfusion Reactions: No Reported Reaction, Family History of Problems w/ Anesthesia Additional Past Anesthesia/Blood Transfusion Reaction / Comment(s): mom has a hard time coming out Past Psychological History: Anxiety Smoking Status: Former smoker Past Alcohol Use History: Daily Past Drug Use History: None Reported - Past Family History Mother Family Medical History: Hyperlipidemia, Hypertension Father Family Medical History: Mitral Valve Prolapse (MVP) Additional Family Medical History / Comment(s): brain bleed General Exam - General Exam Comments Initial Comments: This is a well-developed well-nourished awake alert oriented 3 female Limitations: no limitations General appearance: alert, in no apparent distress Head exam: Present: atraumatic, normocephalic, normal inspection Eye exam: Present: normal appearance, PERRL, EOMI. Absent: scleral icterus, conjunctival injection, periorbital swelling ENT exam: Present: normal exam, mucous membranes moist Neck exam: Present: normal inspection, full ROM, other (No stridor JVD or bruits). Absent: tenderness, meningismus, lymphadenopathy Respiratory exam: Present: normal lung sounds bilaterally, chest wall tenderness (Tenderness to palpation over the inferior aspect of the left costal sternal margin. No step-off or crepitation.). Absent: respiratory distress, wheezes, rales, rhonchi, stridor Cardiovascular Exam: Present: regular rate, normal rhythm, normal heart sounds. Absent: systolic murmur, diastolic murmur, rubs, gallop, clicks GI/Abdominal exam: Present: soft, normal bowel sounds. Absent: distended, tenderness, guarding, rebound, rigid Extremities exam: Present: normal inspection, full ROM, normal capillary refill. Absent: tenderness, pedal edema, joint swelling, calf tenderness Back exam: Present: normal inspection Neurological exam: Present: alert, oriented X3, CN II-XII intact Psychiatric exam: Present: normal affect, normal mood Skin exam: Present: warm, dry, intact, normal color. Absent: rash Course Vital Signs 12/08/19 19:31 Temperature 99 F Pulse Rate 74 Respiratory 20 Rate Blood Pressure 151/91 O2 Sat by Pulse 99 Oximetry - Reevaluation(s) Reevaluation #1: 12/08/19 20:16 The patient does states she has some slight improvement thus far with the nitroglycerin she also states she is very anxious and believes this was her blood pressure is applied. Chest Pain MDM - MDM I did review the imaging and report no acute findings. Patient's case some relief after the the medication was given. Due to the symptoms and the presentation patient will be admitted for rule out. She is in agreement with this her son is present also in agreement. Critical Care Time Critical Care Time: Yes Total Critical Care Time: 31 Critical Care Time: 31 minutes includes the critical care time for initial evaluation the patient history physical labs x-rays several reevaluation patient responsive therapy review of old charting that was available. Discussed with patient family regarding findings discussed with the admitting physician Dr. Roy's group admission orders and documentation of the above Disposition Clinical Impression: Chest pain, Unstable angina pectoris, Chest wall syndrome Disposition: ADMITTED IP TO THIS [facility] Condition: Fair Referrals: Dorina Mckeon MD [Primary Care Provider] - 1-2 days
[2019-12-08] MEDS ORDERED: LORazepam 2 MG/ML INJ IV STA (20:15)
[2019-12-08] MEDS ORDERED: HYDROmorphone 1 MG/ML 1 ML SYRINGE IVP STA (20:17)
[2019-12-08 20:20] LABS: Basophils # (A) 0.1 k/uL (0-0.2); Basophils % (A) 2 %; Eosinophils # (A) 0.1 k/uL (0-0.7); Eosinophils % (A) 2 %; HCT 39.3 % (34.0-46.0); HGB 13.1 gm/dL (11.4-16.0); Lymphocytes # (A) 0.9 k/uL (1.0-4.8); Lymphocytes % (A) 31 %; MCH 32.2 pg (25.0-35.0); MCHC 33.3 g/dL (31.0-37.0); MCV 96.6 fL (80.0-100.0); Monocytes # (A) 0.1 k/uL (0-1.0); Monocytes % (A) 4 %; Neutrophils # (A) 1.7 k/uL (1.3-7.7); Neutrophils % (A) 57 %; Platelet Count 251 k/uL (150-450); RBC 4.06 m/uL (3.80-5.40); RDW 12.5 % (11.5-15.5)
--- NOTE | 2019-12-08 20:20 | XR ---
EXAMINATION TYPE: XR chest 2V DATE OF EXAM: 12/08/2019 COMPARISON: 11/11/2018 INDICATION: Chest pain TECHNIQUE: Frontal and lateral views of the chest are obtained. FINDINGS: The heart size is normal. The pulmonary vasculature is normal. The lungs are clear. IMPRESSION: 1. No acute pulmonary process.
[2019-12-08 20:29] LABS: ALT 21 U/L (4-34); AST 31 U/L (14-36); African American GFR (CKD) >90 (>60 ml/min/1.73 sqM); Albumin 4.5 g/dL (3.5-5.0); Alkaline Phosphatase 48 U/L (38-126); Anion Gap 6 mmol/L; Blood Urea Nitrogen 10 mg/dL (7-17); Calcium 10.2 mg/dL (8.4-10.2); Carbon Dioxide 25 mmol/L (22-30); Chloride 105 mmol/L (98-107); Creatine Kinase 101 U/L (30-135); Glucose 124 mg/dL (74-99); Non-African American GFR(CKD) >90 (>60 ml/min/1.73 sqM); Potassium 4.6 mmol/L (3.5-5.1); Sodium 136 mmol/L (137-145); Total Bilirubin 0.6 mg/dL (0.2-1.3); Total Protein 6.9 g/dL (6.3-8.2)
[2019-12-08 20:43] LABS: D-Dimer 0.22 mg/L FEU (<0.60); Partial Thromboplastin Time 23.4 sec (22.0-30.0); Prothrombin Time 10.2 sec (9.0-12.0)
[2019-12-08] MEDS ORDERED: HEPARIN SODIUM,PORCINE 5,000 UNIT/ML 1 ML VIAL IV ONE (20:43)
[2019-12-08] MEDS ORDERED: NITROGLYCERIN SL TABS 0.4 MG TAB SUBLINGUAL PRN (20:43)
[2019-12-08] MEDS ORDERED: HEPARIN SOD,PORK IN 0.45% NACL 25,000 UNIT in 0.45% NACL 1 250ML.BAG IV SCH (20:45)
[2019-12-08 22:35] VITALS: RESP 16
[2019-12-08] MEDS: carvediloL 12.5 MG TAB PO SCH (22:39)
[2019-12-09] MEDS: NITROGLYCERIN OINT 1 INCH/GM PACKET TOPICAL SCH ×2 (02:30→06:49)
[2019-12-09] MEDS: HYDROmorphone 0.5 MG/0.5 ML SYRINGE IVP PRN ×2 (02:31→09:03)
--- NOTE | 2019-12-09 03:22 | CT ---
EXAMINATION TYPE: CT abdomen pelvis wo con DATE OF EXAM: 12/09/2019 COMPARISON: None HISTORY: LUQ PAIN CT DLP: 488.60 mGycm Automated exposure control for dose reduction was used. Images were obtained from the diaphragm to the floor the pelvis without contrast. Lung bases are clear. There is no pleural effusion. Heart appears normal. Stomach is intact. There are clips from cholecystectomy. Bile ducts are not dilated. There is no foca l liver defect. Spleen is intact. The pancreas appears normal. There is no adrenal mass. Kidneys show normal size and contour. There is no hydronephrosis. There is 1.7 cm hypodense area upper pole right kidney that could be a cortical cyst. There is no retroperitoneal adenopathy. Ureters are not dilated. Abdominal aorta is atheromatous. Iraj endix is posterior and appears normal. Bladder distends smoothly. There is no inguinal hernia. Uterus appears normal. There is no free fluid in the pelvis. There are numerous sigmoid diverticula. There is no sign of diverticulitis. There is no mesenteric edema. There is no ascites or free air. Th ere is no bowel obstruction. There is a degenerative first-degree L4-5 spondylolisthesis. There is no compression fracture. Disc s paces are fairly normal. Bony pelvis is intact. IMPRESSION: There is sigmoid diverticulosis without diverticulitis. Hypodense area upper pole right kidney is pro bably a cyst. This appears unchanged compared to chest CT scan 11/12/2018. I do not see a cause for lef t upper quadrant pain.
[2019-12-09 05:51] LABS: Cholesterol 186 mg/dL (<200); HDL Cholesterol 57 mg/dL (40-60); LDL Cholesterol,Calculated 111 mg/dL (0-99); Triglycerides 91 mg/dL (<150)
[2019-12-09 07:45] VITALS: BP 109/68; PULSE 95
[2019-12-09 07:48] VITALS: TEMP 97.8
--- NOTE | 2019-12-09 08:39 | P.CRDCN ---
History of Present Illness History of present illness: HISTORY OF PRESENTING ILLNESS This is a pleasant 59-year-old female past medical history significant for hypertension and dyslipidemia, gastroesophageal reflux disease and former n icotine dependence. She follows in the office with [facility]. We have been asked to see in consultation for chest pain. She states yesterday she developed discomfort in the left upper quadrant of her abdomen described as a sharp achy sensation. There was radiation to her throat and jaw prompting her to seek medical attention. She denies associated shortness of breath, dizziness, nausea, vomiting or diaphoresis. She states she's having intermittent episodes of constipation and diarrhea. She continues to have abdominal discomfort in the left upper quadrant that is mildly reproducible on exam. She has no symptoms of chest discomfort. She most recently underwent cardiac catheterization in July 2018 at [facility] that she states was unremarkable. She had no PCI. Prior to that in 2015 she had a cardiac catheterization that revealed mild plaque of the mid LAD with no significant obstructive disease. She underwent nuclear stress test in February 2019 at [facility] that she states was normal. She also states she had an endoscopy performed by Dr. Mills and was told to have H. pylori however she did not complete her medication regimen as it affected her blood pressure. DIAGNOSTICS EKG reveals sinus mechanism with no acute ST or T wave abnormalities noted. Chest xray negative for an acute cardiopulmonary process. CT of the abdomen and pelvis unremarkable Laboratory reviewed, WBC 3.0, hemoglobin 13.1, platelets 251, d-dimer 0.22, sodium 136, potassium 4.6, creatinine 0.64, magnesium 2.0, cardiac enzymes negative 3, and T proBNP 225, LDL 111. Current cardiac medications include Aldactone 25 mg daily, aspirin 81 mg daily, Coreg 12.5 mg twice a day, Imdur 10 mg twice a day, hydralazine 50 mg 3 times a day and Catapres 0.1 mg daily as needed. REVIEW OF SYSTEMS At the time of my exam: CONSTITUTIONAL: Denies fever or chills. CARDIOVASCULAR: Denies chest pain, shortness of breath, orthopnea, PND or palpitations. RESPIRATORY: Denies cough. GASTROINTESTINAL: Denies abdominal pain, diarrhea, constipation, nausea or vomiting. MUSCULOSKELETAL: Denies myalgias. NEUROLOGIC: Denies numbness, tingling or weakness. ENDOCRINE: Denies fatigue, weight change, polydipsia or polyurina. GENITOURINARY: Denies burning, hematuria or urgency with micturation. HEMATOLOGIC: Denies history of anemia or bleeding. PHYSICAL EXAMINATION Blood pressure 109/68 heart rate 95 afebrile and maintaining oxygen saturation on room air. CONSTITUTIONAL: No apparent distress. HEENT: Head is normocephalic. Pupils are equal, round. Sclerae anicteric. Mucous membranes of the mouth are moist. No JVD. No carotid bruit. CHEST EXAMINATION: Lungs are clear to auscultation. No chest wall tenderness is noted on palpation or with deep breathing. HEART EXAMINATION: Regular rate and rhythm. S1, S2 heard. No murmurs, gallops or rub. ABDOMEN: Soft, nontender. Positive bowel sounds. EXTREMITIES: 2+ peripheral pulses, no lower extremity edema and no calf tenderness. NEUROLOGIC EXAMINATION: Patient is awake, alert and oriented x3. ASSESSMENT Abdominal pain, atypical for angina. An acute coronary event has been ruled out. Hypertension Gastroesophageal reflux disease PLAN An acute coronary event has been ruled out. Discontinue intravenous heparin. Pain is atypical to be related to cardiac etiology. Recent stress test per the patient was unremarkable. We will request a copy of that stress test. Ongoing medical management and evaluation, no further cardiac workup at this time. Follow-up as an outpatient with her primary load manager. Thank you kindly for this consultation. Nurse Practitioner note has been reviewed, I agree with a documented findings and plan of care. Patient was seen and examined. Past Medical History Past Medical History: Coronary Artery Disease (CAD), GERD/Reflux, Hyperlipidemia, Hypertension, Myocardial Infarction ([place]), Mitral Valve Prolapse (MVP), Osteoarthritis (OA) Additional Past Medical History / Comment(s): hiatal hernia, H. Pylori in Sep 08 2018, bulging disc in C5/C6 Last Myocardial Infarction Date:: July 13 2018 History of Any Multi-Drug Resistant Organisms: None Reported Past Surgical History: Cholecystectomy, Heart Catheterization Additional Past Surgical History / Comment(s): laparoscopies, SKYLER (May 2016), heart cath with no stent 20% calcification in LAD in July 13, 2018 at [place]. Past Anesthesia/Blood Transfusion Reactions: No Reported Reaction, Family History of Problems w/ Anesthesia Additional Past Anesthesia/Blood Transfusion Reaction / Comment(s): mom has a hard time coming out Past Psychological History: Anxiety Smoking Status: Former smoker Past Alcohol Use History: Daily Additional Past Alcohol Use History / Comment(s): quit smoking 2006, smoked since age 15, 1 PPD. 1-2 glasses wine daily Past Drug Use History: None Reported - Past Family History Mother Family Medical History: Hyperlipidemia, Hypertension Father Family Medical History: Mitral Valve Prolapse (MVP) Additional Family Medical History / Comment(s): brain bleed Medications and Allergies Home Medications Medication Instructions Recorded Confirmed Type Fish Oil/Dha/Epa [Fish Oil 1,200 1 each PO DAILY 04/01/16 12/08/19 History mg Fish Oil] Multivitamins, Thera [Multivitamin 1 tab PO DAILY 04/01/16 12/08/19 History (formulary)] Vitamin B Complex 1 tab PO DAILY 04/01/16 12/08/19 History Aspirin [[place] Aspirin EC] 81 mg PO DAILY 11/11/18 12/08/19 History Carvedilol [Coreg] 12.5 mg PO BID 11/11/18 12/08/19 History LORazepam [Ativan] 1 mg PO TID PRN 11/11/18 12/08/19 History Nitroglycerin Sl Tabs [Nitrostat] 0.4 mg SL Q5M PRN 11/11/18 12/08/19 History Spironolactone [Aldactone] 25 mg PO DAILY 11/11/18 12/08/19 History Albuterol Sulfate [Ventolin HFA] 2 puff INHALATION RT-QID PRN 12/08/19 12/08/19 History Isosorbide Mononitrate [Ismo] 10 mg PO BID 12/08/19 12/08/19 History Vitamin C & D Supplement 1 tab PO DAILY 12/08/19 12/08/19 History cloNIDine HCL [Catapres] 0.1 mg PO DAILY PRN 12/08/19 12/08/19 History hydrALAZINE HCL 50 mg PO TID 12/08/19 12/08/19 History Allergies Allergy/AdvReac Type Severity Reaction Status Date / Time ciprofloxacin [From Cipro] Allergy Unknown Verified 12/08/19 20:41 Macrolide Antibiotics Allergy Unknown Verified 12/08/19 20:41 morphine Allergy Unknown Verified 12/08/19 20:41 nifedipine [From Procardia] Allergy Swelling Verified 12/08/19 20:41 Physical Exam Vitals: Vital Signs Temp Pulse Pulse Resp BP BP Pulse Ox 12/09/19 07:44 97.8 F 95 16 109/68 95 12/09/19 05:40 98 F 65 16 105/64 97 12/08/19 22:35 100 12/08/19 22:07 98.3 F 70 16 167/92 100 12/08/19 22:05 70 12/08/19 21:05 98.7 F 65 18 157/71 99 12/08/19 20:05 67 19 171/90 98 12/08/19 19:31 99 F 74 20 151/91 99 Intake and Output 12/08/19 12/09/19 12/09/19 22:59 06:59 14:59 Intake Total 180 Balance 180 Intake: Intake, IV Titration 180 Amount Heparin Sod,Pork in 0.45% 180 NaCl 25,000 unit In 0.45 % NaCl 1 250ml.bag @ 12 UNITS/KG/HR 9.144 mls/hr IV .Q24H [facility] Rx#: [id number] Other: Voiding Method Toilet Toilet # Voids 1 Weight 76.204 kg Results 12/08/19 19:59 12/08/19 20:04 Cardiac Enzymes 12/08/19 12/08/19 12/08/19 Range/Units 19:59 20:04 23:30 AST 31 (14-36) U/L Troponin I <0.012 <0.012 (0.000-0.034) ng/mL 12/09/19 Range/Units 02:40 AST (14-36) U/L Troponin I <0.012 (0.000-0.034) ng/mL Coagulation 12/08/19 12/09/19 Range/Units 19:59 04:55 PT 10.2 (9.0-12.0) sec APTT 23.4 45.3 H (22.0-30.0) sec Lipids 12/09/19 Range/Units 04:55 Triglycerides 91 (<150) mg/dL Cholesterol 186 (<200) mg/dL HDL Cholesterol 57 (40-60) mg/dL CBC 12/08/19 Range/Units 19:59 WBC 3.0 L (3.8-10.6) k/uL RBC 4.06 (3.80-5.40) m/uL Hgb 13.1 (11.4-16.0) gm/dL Hct 39.3 (34.0-46.0) % Plt Count 251 (150-450) k/uL Comprehensive Metabolic Panel 12/08/19 Range/Units 20:04 Sodium 136 L (137-145) mmol/L Potassium 4.6 (3.5-5.1) mmol/L Chloride 105 (98-107) mmol/L Carbon Dioxide 25 (22-30) mmol/L BUN 10 (7-17) mg/dL Creatinine 0.64 (0.52-1.04) mg/dL Glucose 124 H (74-99) mg/dL Calcium 10.2 (8.4-10.2) mg/dL AST 31 (14-36) U/L ALT 21 (4-34) U/L Alkaline Phosphatase 48 (38-126) U/L Total Protein 6.9 (6.3-8.2) g/dL Albumin 4.5 (3.5-5.0) g/dL Current Medications Generic Name Dose Route Start Last Admin Trade Name Freq PRN Reason Stop Dose Admin Aspirin 325 mg 12/09/19 09:00 Aspirin PO DAILY [facility] Carvedilol 12.5 mg 12/08/19 21:00 12/08/19 22:39 Coreg PO 12.5 mg BID-W/MEALS [facility] Administration Hydromorphone HCl 0.5 mg 12/09/19 00:46 12/09/19 02:31 Dilaudid IVP 0.5 mg Q4HR PRN Administration Pain Heparin Sodium/Sodium Chloride 250 mls @ 9.144 mls/hr 12/08/19 20:45 12/08/19 21:36 25,000 unit/ Sodium Chloride IV 12 units/kg/hr .Q24H [facility] 9.144 mls/hr Administration Protocol 12 UNITS/KG/HR Nitroglycerin 0.4 mg 12/08/19 20:43 Nitrostat SUBLINGUAL Q5M PRN Chest Pain Nitroglycerin 1 inch 12/09/19 00:00 12/09/19 06:49 Nitro-Bid Oint TOPICAL Not Given Q6HR [facility] Pantoprazole Sodium 40 mg 12/09/19 09:00 Protonix IVP DAILY [facility] Spironolactone 25 mg 12/09/19 09:00 Aldactone PO DAILY [facility] Intake and Output 12/08/19 12/09/19 12/09/19 22:59 06:59 14:59 Intake Total 180 Balance 180 Intake: Intake, IV Titration 180 Amount Heparin Sod,Pork in 0.45% 180 NaCl 25,000 unit In 0.45 % NaCl 1 250ml.bag @ 12 UNITS/KG/HR 9.144 mls/hr IV .Q24H [facility] Rx#: [id number] Other: Voiding Method Toilet Toilet # Voids 1 Weight 76.204 kg 12/08/19 19:59 12/08/19 20:04
[2019-12-09] MEDS ORDERED: ASPIRIN 81 MG PO SCH (09:00)
[2019-12-09] MEDS ORDERED: PANTOPRAZOLE 40 MG/10 ML VIAL IVP SCH (09:00)
[2019-12-09] MEDS ORDERED: ASPIRIN 325 MG TAB PO SCH (09:00)
[2019-12-09] MEDS ORDERED: hydrALAZINE HCL 50 MG TAB PO SCH (09:00)
[2019-12-09] MEDS: SPIRONOLACTONE 25 MG TAB PO SCH ×2 (09:06→10:14)
[2019-12-09] MEDS: carvediloL 12.5 MG TAB PO SCH (09:07)
--- NOTE | 2019-12-09 12:16 | P.HPIM ---
History of Present Illness patient is a pleasant 59-year-old female he came in with compensative from chest pain mostly in the epigastric area on the right side appears to be musculoskeletal doesn't believe it's a gastroesophageal reflux disease patient has extensive history of gastric surgery reflux disease and on Prilosec for a long period of time and was also treated for H. pylori in the past. Patient chest pain is noncardiac Was evaluated by cardiology patient just pain is not associated with the shortness of breath or diaphoresis no nausea no vomiting. Patient also has a pain in the ER area which is secondary to parotitis. Patient had a parotid swelling and some tenderness in that area. Patient pain is better controlled but although receiving high-dose of opiates. Patient appears to be musculoskeletal in the lower rib cage area PE was ruled out no pneumonia. Review of Systems REVIEW OF SYSTEMS: CONSTITUTIONAL: No fever, no malaise, no fatigue. HEENT: No recent visual problems or hearing problems. Denied any sore throat. CARDIOVASCULAR: No orthopnea, PND, no palpitations, no syncope. PULMONARY: no cough, no hemoptysis. GASTROINTESTINAL: No diarrhea, no nausea, no vomiting, no abdominal pain. NEUROLOGICAL: No headaches, no weakness, no numbness. HEMATOLOGICAL: Denies any bleeding or petechiae. GENITOURINARY: Denies any burning micturition, frequency, or urgency. MUSCULOSKELETAL/RHEUMATOLOGICAL: Denies any joint pain, swelling, or any muscle pain. ENDOCRINE: Denies any polyuria or polydipsia. The rest of the 14-point review of systems is negative. Past Medical History Past Medical History: Coronary Artery Disease (CAD), GERD/Reflux, Hyperl ipidemia, Hypertension, Myocardial Infarction ([place]), Mitral Valve Prolapse (MVP), Osteoarthritis (OA) Additional Past Medical History / Comment(s): hiatal hernia, H. Pylori in Sep 08 2018, bulging disc in C5/C6 Last Myocardial Infarction Date:: July 13 2018 History of Any Multi-Drug Resistant Organisms: None Reported Past Surgical History: Cholecystectomy, Heart Catheterization Additional Past Surgical History / Comment(s): laparoscopies, SKYLER (May 2016), heart cath with no stent 20% calcification in LAD in [place] [address] [place] Past Anesthesia/Blood Transfusion Reactions: No Reported Reaction, Family History of Problems w/ Anesthesia Additional Past Anesthesia/Blood Transfusion Reaction / Comment(s): mom has a h nakia time coming out Past Psychological History: Anxiety Smoking Status: Former smoker Past Alcohol Use History: Daily Additional Past Alcohol Use History / Comment(s): quit smoking 2006, smoked since age 15, 1 PPD. 1-2 glasses wine daily Past Drug Use History: None Reported - Past Family History Mother Family Medical History: Hyperlipidemia, Hypertension Father Family Medical History: Mitral Valve Prolapse (MVP) Additional Family Medical History / Comment(s): brain bleed Medications and Allergies Home Medications Medication Instructions Recorded Confirmed Type Fish Oil/Dha/Epa [Fish Oil 1,200 1 each PO DAILY 04/01/16 12/08/19 History mg Fish Oil] Multivitamins, Thera [Multivitamin 1 tab PO DAILY 04/01/16 12/08/19 History (formulary)] Vitamin B Complex 1 tab PO DAILY 04/01/16 12/08/19 History Aspirin [[place] Aspirin EC] 81 mg PO DAILY 11/11/18 12/08/19 History Carvedilol [Coreg] 12.5 mg PO BID 11/11/18 12/08/19 History LORazepam [Ativan] 1 mg PO TID PRN 11/11/18 12/08/19 History Nitroglycerin Sl Tabs [Nitrostat] 0.4 mg SL Q5M PRN 11/11/18 12/08/19 History Spironolactone [Aldactone] 25 mg PO DAILY 11/11/18 12/08/19 History Albuterol Sulfate [Ventolin HFA] 2 puff INHALATION RT-QID PRN 12/08/19 12/08/19 History Isosorbide Mononitrate [Ismo] 10 mg PO BID 12/08/19 12/08/19 History Vitamin C & D Supplement 1 tab PO DAILY 12/08/19 12/08/19 History cloNIDine HCL [Catapres] 0.1 mg PO DAILY PRN 12/08/19 12/08/19 History hydrALAZINE HCL 50 mg PO TID 12/08/19 12/08/19 History Amoxic-Pot Clav 875-125Mg 1 tab PO Q12HR 5 Days #10 tab 12/09/19 Rx [Augmentin 875-125] Famotidine [Pepcid] 20 mg PO BID #30 tablet 12/09/19 Rx traMADol HCL [Ultram] 50 mg PO Q6HR PRN 3 Days #12 tab 12/09/19 Rx Allergies Allergy/AdvReac Type Severity Reaction Status Date / Time ciprofloxacin [From Cipro] Allergy Unknown Verified 12/08/19 20:41 Macrolide Antibiotics Allergy Unknown Verified 12/08/19 20:41 morphine Allergy Unknown Verified 12/08/19 20:41 nifedipine [From Procardia] Allergy Swelling Verified 12/08/19 20:41 Physical Exam Vitals: Vital Signs Temp Pulse Pulse Resp BP BP Pulse Ox 12/09/19 09:00 95 16 12/09/19 07:44 97.8 F 95 16 109/68 95 12/09/19 05:40 98 F 65 16 105/64 97 12/08/19 22:35 100 12/08/19 22:07 98.3 F 70 16 167/92 100 12/08/19 22:05 70 12/08/19 21:05 98.7 F 65 18 157/71 99 12/08/19 20:05 67 19 171/90 98 12/08/19 19:31 99 F 74 20 151/91 99 Intake and Output 12/08/19 12/09/19 12/09/19 22:59 06:59 14:59 Intake Total 180 240 Balance 180 240 Intake: Intake, IV Titration 180 Amount Heparin Sod,Pork in 0.45% 180 NaCl 25,000 unit In 0.45 % NaCl 1 250ml.bag @ 12 UNITS/KG/HR 9.144 mls/hr IV .Q24H [facility] Rx#: [id number] Oral 240 Other: Voiding Method Toilet Toilet Toilet # Voids 1 Weight 76.204 kg PHYSICAL EXAMINATION: GENERAL: The patient is alert and oriented x3, not in any acute distress. Well developed, well nourished. HEENT: Pupils are round and equally reacting to light. EOMI. No scleral icterus. No conjunctival pallor. Normocephalic, atraumatic. No pharyngeal erythema. No thyromegaly. patient had left-sided parotid enlargement mild tenderness CARDIOVASCULAR: S1 and S2 present. No murmurs, rubs, or gallops. PULMONARY: Chest is clear to auscultation, no wheezing or crackles. ABDOMEN: Soft, nontender, nondistended, normoactive bowel sounds. No palpable organomegaly. MUSCULOSKELETAL: No joint swelling or deformity. EXTREMITIES: No cyanosis, clubbing, or pedal edema. NEUROLOGICAL: Gross neurological examination did not reveal any focal deficits. SKIN: No rashes. Results CBC & Chem 7: 12/08/19 19:59 12/08/19 20:04 Labs: Abnormal Lab Results - Last 24 Hours (Table) 12/08/19 12/08/19 12/09/19 Range/Units 19:59 20:04 04:55 WBC 3.0 L (3.8-10.6) k/uL Lymphocytes # 0.9 L (1.0-4.8) k/uL APTT (22.0-30.0) sec Sodium 136 L (137-145) mmol/L Glucose 124 H (74-99) mg/dL LDL Cholesterol, Calc 111 H (0-99) mg/dL 12/09/19 Range/Units 04:55 WBC (3.8-10.6) k/uL Lymphocytes # (1.0-4.8) k/uL APTT 45.3 H (22.0-30.0) sec Sodium (137-145) mmol/L Glucose (74-99) mg/dL LDL Cholesterol, Calc (0-99) mg/dL Thrombosis Risk Factor Assmnt - Choose All That Apply Each Factor Represents 1 point: Age 41-60 years Thrombosis Risk Factor Assessment Total Risk Factor Score: 1 Thrombosis Risk Factor Assessment Level: Low Risk Assessment and Plan Plan: -epigastric abdominal pain: Either musculoskeletal or gastric surgery reflux disease patient had a CAT scan of the abdomen which did not show any significant abnormality except for some diverticulosis without any diverticulitis. patient will be discharged on tramadol and Pepcid, as she doesn't want to take proton pump inhibitors.ruled out acute coronary syndromes and patient was cleared by cardiology. -Left-sided parotitis: Patient will be referred to ENT and started her on Augmentin although patient had C. diff colitis in the past with Augmentin, she has diarrhea asked her to discontinue this medication apply warm compresses. -Hypertension -Gastric esophageal reflux disease -Mitral valve prolapse history Patient will be discharged with the above-mentioned medications
[2019-12-10] MEDS ORDERED: PANTOPRAZOLE 40 MG TABLET PO SCH (07:30)
== END 2019-12-09 12:45 | disposition home or self-care (01) ==
LOC: EC 19:31 → 3NCARDOBS 20:45
PROVIDERS: ADMIT Internal Medicine; ATTEND Internal Medicine
DX: R07.9 Chest pain, unspecified (principal); A04.72 Enterocolitis due to Clostridium difficile, not specified as recurrent; R10.13 Epigastric pain; I25.10 Atherosclerotic heart disease of native coronary artery without angina pectoris; K11.20 Sialoadenitis, unspecified; K57.90 Diverticulosis of intestine, part unspecified, without perforation or abscess without bleeding; K21.9 Gastro-esophageal reflux disease without esophagitis; E78.5 Hyperlipidemia, unspecified; R10.12 Left upper quadrant pain; K59.00 Constipation, unspecified; R19.7 Diarrhea, unspecified; I10 Essential (primary) hypertension; I25.2 Old myocardial infarction; I34.1 Nonrheumatic mitral (valve) prolapse; M19.90 Unspecified osteoarthritis, unspecified site; R06.02 Shortness of breath; K44.9 Diaphragmatic hernia without obstruction or gangrene; Z86.19 Personal history of other infectious and parasitic diseases; Z90.49 Acquired absence of other specified parts of digestive tract; Z98.890 Other specified postprocedural states; F41.9 Anxiety disorder, unspecified; Z87.891 Personal history of nicotine dependence; Z83.438 Family history of other disorder of lipoprotein metabolism and other lipidemia; Z82.49 Family history of ischemic heart disease and other diseases of the circulatory system; Z79.82 Long term (current) use of aspirin; Z79.899 Other long term (current) drug therapy; Z88.1 Allergy status to other antibiotic agents; Z88.5 Allergy status to narcotic agent; Z88.8 Allergy status to other drugs, medicaments and biological substances
CPT/HCPCS: 93005 ×2; 96375 ×2; 96376 ×2; 96365; 99291; 36415; 85379; 83880; 80061; 80053; 82550; 83690; 83735; 84484 ×2; 85025; 85610; 85730 ×2; 71046; 74176; G0378 ×2; J2060; J1644 ×2; C9113; J1170

== ENCOUNTER 2021-02-11 13:48 | Observation (INO) | payer OTHER ==
[2021-02-11] MEDS ORDERED: SODIUM CHLORIDE 0.9% 500 ML 500 ML IV STA (14:44)
--- NOTE | 2021-02-11 14:57 | ED ---
General Adult HPI - General Chief complaint: Chest Pain Stated complaint: high BP, dizziness Time Seen by Provider: 02/11/21 14:10 Source: patient, RN notes reviewed, old records reviewed Mode of arrival: ambulatory Limitations: no limitations - History of Present Illness Initial comments: This is a 60-year-old female presents emergency department stating she has 2 previous heart attacks but no stents. Patient comes in today because she states she had a pulsating sensation in the epigastric lower chest area for 2 minutes. Then she states the pain moved into her chest is been there since. Patient states she's also short of breath with the pain. Patient denies any diaphoretic episodes. Patient denies any nausea or vomiting. Patient denies li ghtheadedness or dizziness. Patient denies any recent fever chills or cough. Patient states she did have a COVID vaccine. Patient denies any swelling to the legs or calf tenderness. Patient denies any back pain. Patient denies any numbness or weakness. - Related Data Home Medications Medication Instructions Recorded Confirmed Fish Oil/Dha/Epa [Fish Oil 1,200 1 each PO DAILY 04/01/16 12/08/19 mg Fish Oil] Multivitamins, Thera [Multivitamin 1 tab PO DAILY 04/01/16 12/08/19 (formulary)] Vitamin B Complex 1 tab PO DAILY 04/01/16 12/08/19 Aspirin [[place] Aspirin EC] 81 mg PO DAILY 11/11/18 12/08/19 Carvedilol [Coreg] 12.5 mg PO BID 11/11/18 12/08/19 LORazepam [Ativan] 1 mg PO TID PRN 11/11/18 12/08/19 Nitroglycerin Sl Tabs [Nitrostat] 0.4 mg SL Q5M PRN 11/11/18 12/08/19 Spironolactone [Aldactone] 25 mg PO DAILY 11/11/18 12/08/19 Albuterol Sulfate [Ventolin HFA] 2 puff INHALATION RT-QID PRN 12/08/19 12/08/19 Isosorbide Mononitrate [Ismo] 10 mg PO BID 12/08/19 12/08/19 Vitamin C & D Supplement 1 tab PO DAILY 12/08/19 12/08/19 cloNIDine HCL [Catapres] 0.1 mg PO DAILY PRN 12/08/19 12/08/19 hydrALAZINE HCL 50 mg PO TID 12/08/19 12/08/19 Previous Rx's Medication Instructions Recorded Amoxic-Pot Clav 875-125Mg 1 tab PO Q12HR 5 Days #10 tab 12/09/19 [Augmentin 875-125] Famotidine [Pepcid] 20 mg PO BID #30 tablet 12/09/19 traMADol HCL [Ultram] 50 mg PO Q6HR PRN 3 Days #12 tab 12/09/19 Allergies Allergy/AdvReac Type Severity Reaction Status Date / Time ciprofloxacin [From Cipro] Allergy Unknown Verified 02/11/21 14:11 Macrolide Antibiotics Allergy Unknown Verified 02/11/21 14:11 morphine Allergy Unknown Verified 02/11/21 14:11 nifedipine [From Procardia] Allergy Swelling Verified 02/11/21 14:11 Review of Systems ROS Statement: Those systems with pertinent positive or pertinent negative responses have been documented in the HPI. ROS Other: All systems not noted in ROS Statement are negative. Past Medical History Past Medical History: Coronary Artery Disease (CAD), GERD/Reflux, Hyperlipidemia, Hypertension, Myocardial Infarction ([place]), Mitral Valve Prolapse (MVP), Osteoarthritis (OA) Additional Past Medical History / Comment(s): hiatal hernia, H. Pylori in Sep 08 2018, bulging disc in C5/C6 Last Myocardial Infarction Date:: July 13 2018 History of Any Multi-Drug Resistant Organisms: None Reported Past Surgical History: Cholecystectomy, Heart Catheterization Additional Past Surgical History / Comment(s): laparoscopies, SKYLER (May 2016), heart cath with no stent 20% calcification in LAD in July 13, 2018 at [place]. Past Anesthesia/Blood Transfusion Reactions: No Reported Reaction, Family History of Problems w/ Anesthesia Additional Past Anesthesia/Blood Transfusion Reaction / Comment(s): mom has a hard time coming out Past Psychological History: Anxiety Smoking Status: Former smoker Past Alcohol Use History: None Reported, Daily Past Drug Use History: None Reported - Past Family History Mother Family Medical History: Hyperlipidemia, Hypertension Father Family Medical History: Mitral Valve Prolapse (MVP) Additional Family Medical History / Comment(s): brain bleed General Exam - General Exam Comments Initial Comments: GENERAL: Patient is well-developed and well-nourished. Patient is nontoxic and well- hydrated and is in mild distress no acute distress. ENT: Neck is soft and supple. No significant lymphadenopathy is noted. Oropharynx is clear. Moist mucous membranes. Neck has full range of motion without eliciting any pain. EYES: The sclera were anicteric and conjunctiva were pink and moist. Extraocular movements were intact and pupils were equal round and reactive to light. Eyelids were unremarkable. PULMONARY: Unlabored respirations. Good breath sounds bilaterally. No audible rales rhonchi or wheezing was noted. CARDIOVASCULAR: There is a regular rate and rhythm without any murmurs gallops or rubs. ABDOMEN: Soft and nontender with normal bowel sounds. SKIN: Skin is clear with no lesions or rashes and otherwise unremarkable. NEUROLOGIC: Patient is alert and oriented x3. Cranial nerves II through XII are grossly intact. Motor and sensory are also intact. Normal speech, volume and content. Symmetrical smile. MUSCULOSKELETAL: Normal extremities with adequate strength and full range of motion. LYMPHATICS: No significant lymphadenopathy is noted PSYCHIATRIC: Normal psychiatric evaluation. Limitations: no limitations Course Vital Signs 02/11/21 14:08 Temperature 98.3 F Pulse Rate 70 Respiratory 18 Rate Blood Pressure 149/90 O2 Sat by Pulse 98 Oximetry Medical Decision Making - Medical Decision Making EKG shows normal sinus rhythm at 70 bpm NC interval 152 QRS is under 2 QT interval 414 QTC is 447 per patient's EKG shows no ST segment elevation or depression. Chest x-ray showed no acute abnormality. I spoke with the [facility] agreed to admit the patient admitted the patient wrote admitting orders - Lab Data Result diagrams: 02/11/21 14:17 02/11/21 14:17 Lab Results 02/11/21 02/11/21 02/11/21 Range/Units 14:17 14:17 14:17 WBC 4.8 (3.8-10.6) k/uL RBC 4.13 (3.80-5.40) m/uL Hgb 13.7 (11.4-16.0) gm/dL Hct 40.3 (34.0-46.0) % MCV 97.5 (80.0-100.0) fL MCH 33.1 (25.0-35.0) pg MCHC 33.9 (31.0-37.0) g/dL RDW 11.9 (11.5-15.5) % Plt Count 251 (150-450) k/uL MPV 6.9 Neutrophils % 69 % Lymphocytes % 21 % Monocytes % 4 % Eosinophils % 2 % Basophils % 1 % Neutrophils # 3.3 (1.3-7.7) k/uL Lymphocytes # 1.0 (1.0-4.8) k/uL Monocytes # 0.2 (0-1.0) k/uL Eosinophils # 0.1 (0-0.7) k/uL Basophils # 0.0 (0-0.2) k/uL PT 10.3 (9.0-12.0) sec INR 1.0 (<1.2) APTT 22.4 (22.0-30.0) sec D-Dimer 0.30 (<0.60) mg/L FEU Sodium 135 L (137-145) mmol/L Potassium 4.1 (3.5-5.1) mmol/L Chloride 105 (98-107) mmol/L Carbon Dioxide 21 L (22-30) mmol/L Anion Gap 9 mmol/L BUN 14 (7-17) mg/dL Creatinine 0.68 (0.52-1.04) mg/dL Est GFR (CKD-EPI)AfAm >90 (>60 ml/min/1.73 sqM) Est GFR (CKD-EPI)NonAf >90 (>60 ml/min/1.73 sqM) Glucose 117 H (74-99) mg/dL Calcium 10.2 (8.4-10.2) mg/dL Magnesium 2.0 (1.6-2.3) mg/dL Total Bilirubin 0.8 (0.2-1.3) mg/dL AST 29 (14-36) U/L ALT 24 (4-34) U/L Alkaline Phosphatase 53 (38-126) U/L Troponin I (0.000-0.034) ng/mL Total Protein 7.4 (6.3-8.2) g/dL Albumin 4.5 (3.5-5.0) g/dL Amylase 55 (30-110) U/L Lipase 90 (23-300) U/L 02/11/ Range/Units 14:17 WBC (3.8-10.6) k/uL RBC (3.80-5.40) m/uL Hgb (11.4-16.0) gm/dL Hct (34.0-46.0) % MCV (80.0-100.0) fL MCH (25.0-35.0) pg MCHC (31.0-37.0) g/dL RDW (11.5-15.5) % Plt Count (150-450) k/uL MPV Neutrophils % % Lymphocytes % % Monocytes % % Eosinophils % % Basophils % % Neutrophils # (1.3-7.7) k/uL Lymphocytes # (1.0-4.8) k/uL Monocytes # (0-1.0) k/uL Eosinophils # (0-0.7) k/uL Basophils # (0-0.2) k/uL PT (9.0-12.0) sec INR (<1.2) APTT (22.0-30.0) sec D-Dimer (<0.60) mg/L FEU Sodium (137-145) mmol/L Potassium (3.5-5.1) mmol/L Chloride (98-107) mmol/L Carbon Dioxide (22-30) mmol/L Anion Gap mmol/L BUN (7-17) mg/dL Creatinine (0.52-1.04) mg/dL Est GFR (CKD-EPI)AfAm (>60 ml/min/1.73 sqM) Est GFR (CKD-EPI)NonAf (>60 ml/min/1.73 sqM) Glucose (74-99) mg/dL Calcium (8.4-10.2) mg/dL Magnesium (1.6-2.3) mg/dL Total Bilirubin (0.2-1.3) mg/dL AST (14-36) U/L ALT (4-34) U/L Alkaline Phosphatase (38-126) U/L Troponin I <0.012 (0.000-0.034) ng/mL Total Protein (6.3-8.2) g/dL Albumin (3.5-5.0) g/dL Amylase (30-110) U/L Lipase (23-300) U/L Disposition Clinical Impression: Chest pain, Epigastric pain Disposition: ADMITTED IP TO THIS HOSP Referrals: Dorina Mckeon MD [Primary Care Provider] - 1-2 days Time of Disposition: 16:07
[2021-02-11 14:59] LABS: Basophils % (A) 1 %; Eosinophils % (A) 2 %; HCT 40.3 % (34.0-46.0); HGB 13.7 gm/dL (11.4-16.0); Lymphocytes % (A) 21 %; MCH 33.1 pg (25.0-35.0); MCHC 33.9 g/dL (31.0-37.0); MCV 97.5 fL (80.0-100.0); Mean Platelet Volume 6.9; Monocytes % (A) 4 %; Neutrophils % (A) 69 %; Platelet Count 251 k/uL (150-450); RBC 4.13 m/uL (3.80-5.40); RDW 11.9 % (11.5-15.5); WBC 4.8 k/uL (3.8-10.6)
[2021-02-11 15:00] LABS: Eosinophils # (A) 0.1 k/uL (0-0.7); Monocytes # (A) 0.2 k/uL (0-1.0); Neutrophils # (A) 3.3 k/uL (1.3-7.7)
[2021-02-11 15:14] LABS: ALT 24 U/L (4-34); AST 29 U/L (14-36); African American GFR (CKD) >90 (>60 ml/min/1.73 sqM); Albumin 4.5 g/dL (3.5-5.0); Alkaline Phosphatase 53 U/L (38-126); Amylase 55 U/L (30-110); Anion Gap 9 mmol/L; Blood Urea Nitrogen 14 mg/dL (7-17); Calcium 10.2 mg/dL (8.4-10.2); Carbon Dioxide 21 mmol/L (22-30); Chloride 105 mmol/L (98-107); Glucose 117 mg/dL (74-99); Lipase 90 U/L (23-300); Non-African American GFR(CKD) >90 (>60 ml/min/1.73 sqM); Partial Thromboplastin Time 22.4 sec (22.0-30.0); Potassium 4.1 mmol/L (3.5-5.1); Prothrombin Time 10.3 sec (9.0-12.0); Sodium 135 mmol/L (137-145); Total Bilirubin 0.8 mg/dL (0.2-1.3); Total Protein 7.4 g/dL (6.3-8.2)
--- NOTE | 2021-02-11 15:24 | XR ---
EXAMINATION TYPE: XR chest 2V DATE OF EXAM: 02/11/2021 COMPARISON: 12/08/2019 HISTORY: Chest pain TECHNIQUE: 2 views FINDINGS: Heart and mediastinum are normal. Lungs are clear. Diaphragm is normal. Bony thorax is norm al. IMPRESSION: Normal chest. No change.
[2021-02-11] MEDS ORDERED: NITROGLYCERIN SL TABS 0.4 MG TAB SUBLINGUAL PRN (16:07)
[2021-02-11] MEDS ORDERED: BACLOFEN 10 MG TAB PO PRN (19:27)
[2021-02-11] MEDS: hydrALAZINE HCL 50 MG TAB PO SCH (20:02)
[2021-02-11] MEDS: carvediloL 12.5 MG TAB PO SCH (20:02)
[2021-02-11] MEDS: ISOSORBIDE MONONITRATE 10 MG TAB PO SCH (20:02)
[2021-02-11] MEDS: FAMOTIDINE 20 MG TAB PO SCH (20:03)
[2021-02-11] MEDS ORDERED: diphenhydrAMINE 25 MG CAP PO SCH (21:00)
[2021-02-12 08:05] VITALS: RESP 15
[2021-02-12] MEDS: FAMOTIDINE 20 MG TAB PO SCH (08:27)
[2021-02-12] MEDS ORDERED: ASPIRIN 325 MG TAB PO SCH (09:00)
[2021-02-12] MEDS ORDERED: ATORVASTATIN 40 MG TAB PO SCH (09:00)
[2021-02-12 09:13] LABS: Chol/HDL Ratio 3.72 Ratio; HDL Cholesterol 63.2 mg/dL (40.00-60.00); LDL Cholesterol,Calculated 151.2 mg/dL (0.0-131.0); VLDL Calculation 20.6 mg/dL (5.00-40.00)
--- NOTE | 2021-02-12 09:21 | P.CRDCN ---
History of Present Illness History of present illness: HISTORY OF PRESENTING ILLNESS This is a pleasant 59-year-old female past medical history significant for hypertension and dyslipidemia, gastroesophageal reflux disease and former ni cotine dependence, history of cholecystectomy, non-obstructive CAD, diverticulosis. She follows in the office with Dr. Rosario. We have been asked to see in consultation for chest pain. Patient presented with upper abdominal pain. She states she has had left upper quadrant pain before. She describes it as sharp and achy. It is nonradiating, nonexertional. She denies nausea, vomiting, lightheadedness, dizziness, shortness of breath, chest pain, diaphoresis. Aggravating symptoms include palpation to the area. She denies any specific alleviating factors. She denies any symptoms of orthopnea or PND. She denies any symptoms of presyncope or syncope. She most recently underwent cardiac catheterization in July 2018 at [facility] that she states was unremarkable. She had no PCI. Prior to that in 2015 she had a cardiac catheterization that revealed mild plaque of the mid LAD with no significant obstructive disease. She underwent nuclear stress test in February 2019 at [facility] that she states was normal. DIAGNOSTICS EKG reveals sinus mechanism, heart rate 70, incomplete right bundle branch block, with no acute ST or T wave abnormalities noted. Prior EKGs appear similar. Chest xray negative for an acute cardiopulmonary process. Laboratory reviewed, CBC unremarkable, d-dimer negative, sodium 135, potassium 4.1, BUN 14, serum creatinine 0.68, magnesium 2.0, troponin negative 3, liver enzymes within normal limits, total bilirubin 0.8, amylase and lipase within normal limits, COVID-19 PCR negative, triglycerides 103, cholesterol 235, LDL 151, HDL 63 Telemetry reviewed, patient maintaining sinus mechanism heart rate in the 60s. Current cardiac medications include carvedilol 25 mg twice a day, Imdur 10 mg twice a day, spironolactone 25 mg daily, REVIEW OF SYSTEMS At the time of my exam: CONSTITUTIONAL: Denies fever or chills. CARDIOVASCULAR: Denies chest pain, shortness of breath, orthopnea, PND or palpitations. RESPIRATORY: Denies cough. GASTROINTESTINAL: Positive abdominal pain abdominal pain, Denies diarrhea, constipation, nausea or vomiting. MUSCULOSKELETAL: Denies myalgias. NEUROLOGIC: Denies numbness, tingling or weakness. ENDOCRINE: Denies fatigue, weight change, polydipsia or polyurina. GENITOURINARY: Denies burning, hematuria or urgency with micturation. HEMATOLOGIC: Denies history of anemia or bleeding. PHYSICAL EXAMINATION Blood pressure 105/64, heart rate 61, afebrile maintaining saturations on room air CONSTITUTIONAL: No apparent distress. HEENT: Head is normocephalic. Pupils are equal, round. Sclerae anicteric. Mucous membranes of the mouth are moist. No JVD. No carotid bruit. CHEST EXAMINATION: Lungs are clear to auscultation. No chest wall tenderness is noted on palpation or with deep breathing. HEART EXAMINATION: Regular rate and rhythm. S1, S2 heard. No murmurs, gallops or rub. ABDOMEN: Soft, Tender to palpation LUQ and RUQ. Positive bowel sounds. EXTREMITIES: 2+ peripheral pulses, no lower extremity edema and no calf tenderness. NEUROLOGIC EXAMINATION: Patient is awake, alert and oriented x3. ASSESSMENT Abdominal pain Hypertension Gastroesophageal reflux disease Dyslipidemia History of diverticulosis History of cholecystectomy PLAN -From a cardiology perspective, no further cardiac workup at this time. Recommend further management of patient's abdominal pain. Continue home cardiac medications. Follow up with her primary production grip Dr. Rosario. Nurse Practitioner note has been reviewed, I agree with a documented findings and plan of care. Patient was seen and examined. Past Medical History Past Medical History: Coronary Artery Disease (CAD), GERD/Reflux, Hyperlipidemia, Hypertension, Myocardial Infarction ([place]), Mitral Valve Prolapse (MVP), Osteoarthritis (OA) Additional Past Medical History / Comment(s): hiatal hernia, H. Pylori in Sep 08 2018, bulging disc in C5/C6 Last Myocardial Infarction Date:: July 13 2018 History of Any Multi-Drug Resistant Organisms: None Reported Past Surgical History: Cholecystectomy, Heart Catheterization Additional Past Surgical History / Comment(s): laparoscopies, SKYLER (May 2016), heart cath with no stent 20% calcification in LAD in July 13, 2018 at [place]. Past Anesthesia/Blood Transfusion Reactions: No Reported Reaction, Family History of Problems w/ Anesthesia Additional Past Anesthesia/Blood Transfusion Reaction / Comment(s): mom has a hard time coming out Past Psychological History: Anxiety Smoking Status: Former smoker Past Alcohol Use History: None Reported Additional Past Alcohol Use History / Comment(s): quit smoking 2006, smoked since age 15, 1 PPD. 1-2 glasses wine occationally Past Drug Use History: None Reported - Past Family History Mother Family Medical History: Hyperlipidemia, Hypertension Father Family Medical History: Mitral Valve Prolapse (MVP) Additional Family Medical History / Comment(s): brain bleed Medications and Allergies Home Medications Medication Instructions Recorded Confirmed Type Fish Oil/Dha/Epa [Fish Oil 1,200 1 each PO DAILY 04/01/16 02/11/21 History mg Fish Oil] Multivitamins, Thera [Multivitamin 1 tab PO DAILY 04/01/16 02/11/21 History (formulary)] Vitamin B Complex 1 tab PO DAILY 04/01/16 02/11/21 History Carvedilol [Coreg] 25 mg PO BID 11/11/18 02/11/21 History LORazepam [Ativan] 1 mg PO DIRECTED PRN 11/11/18 02/11/21 History Spironolactone [Aldactone] 25 mg PO DAILY 11/11/18 02/11/21 History Isosorbide Mononitrate [Ismo] 10 mg PO BID 12/08/19 02/11/21 History Baclofen [Lioresal] 20 mg PO BID PRN 02/11/21 02/11/21 History Bifidobacterium Infantis [Align] 4 mg PO DAILY 02/11/21 02/11/21 History Cholecalciferol [Vitamin D3 (25 25 mcg PO DAILY 02/11/21 02/11/21 History Mcg = 1000 Iu)] Famotidine [Pepcid] 40 mg PO HS 02/11/21 02/11/21 History Ketorolac [Toradol] 10 mg PO QID PRN 02/11/21 02/11/21 History Mv-Min/Vit C/Glut/Lysine/Hb124 1 tab PO DAILY 02/11/21 02/11/21 History [Immune Support Chewable Tablet] diphenhydrAMINE [Benadryl] 50 mg PO HS 02/11/21 02/11/21 History Allergies Allergy/AdvReac Type Severity Reaction Status Date / Time ciprofloxacin [From Cipro] Allergy Unknown Verified 02/11/21 16:50 Macrolide Antibiotics Allergy Unknown Verified 02/11/21 16:50 morphine Allergy Unknown Verified 02/11/21 16:50 nifedipine [From Procardia] Allergy Swelling Verified 02/11/21 16:50 Physical Exam Vitals: Vital Signs Temp Pulse Pulse Resp BP BP Pulse Ox 02/12/21 01:58 98.1 F 67 18 106/62 95 02/12/21 01:04 70 02/11/21 19:40 70 18 02/11/21 19:13 98.0 F 71 18 160/82 99 02/11/21 17:58 97.7 F 70 18 169/78 98 02/11/21 16:59 62 18 146/92 98 02/11/21 14:08 98.3 F 70 18 149/90 98 Intake and Output 02/11/21 02/12/21 02/12/21 22:59 06:59 14:59 Other: Voiding Method Toilet # Voids 1 Weight 68.946 kg Results 02/11/21 14:17 02/11/21 14:17 Cardiac Enzymes 02/11/21 02/11/21 02/11/21 Range/Units 14:17 14:17 17:20 AST 29 (14-36) U/L Troponin I <0.012 <0.012 (0.000-0.034) ng/mL 02/11/21 Range/Units 20:37 AST (14-36) U/L Troponin I <0.012 (0.000-0.034) ng/mL Coagulation 02/11/21 Range/Units 14:17 PT 10.3 (9.0-12.0) sec APTT 22.4 (22.0-30.0) sec CBC 02/11/21 Range/Units 14:17 WBC 4.8 (3.8-10.6) k/uL RBC 4.13 (3.80-5.40) m/uL Hgb 13.7 (11.4-16.0) gm/dL Hct 40.3 (34.0-46.0) % Plt Count 251 (150-450) k/uL Comprehensive Metabolic Panel 02/11/21 Range/Units 14:17 Sodium 135 L (137-145) mmol/L Potassium 4.1 (3.5-5.1) mmol/L Chloride 105 (98-107) mmol/L Carbon Dioxide 21 L (22-30) mmol/L BUN 14 (7-17) mg/dL Creatinine 0.68 (0.52-1.04) mg/dL Glucose 117 H (74-99) mg/dL Calcium 10.2 (8.4-10.2) mg/dL AST 29 (14-36) U/L ALT 24 (4-34) U/L Alkaline Phosphatase 53 (38-126) U/L Total Protein 7.4 (6.3-8.2) g/dL Albumin 4.5 (3.5-5.0) g/dL Current Medications Generic Name Dose Route Start Last Admin Trade Name Aaronq PRN Reason Stop Dose Admin Aspirin 325 mg 02/12/21 09:00 Aspirin 325 Mg Tab PO DAILY CARMELITA Baclofen 20 mg 02/11/21 19:27 02/12/21 01:12 Baclofen 10 Mg Tab PO 20 mg BID PRN Administration NECK PAIN Carvedilol 25 mg 02/11/21 21:00 02/11/21 20:02 Carvedilol 12.5 Mg Tab PO 25 mg BID CARMELITA Administration Diphenhydramine HCl 25 mg 02/11/21 21:00 02/11/21 20:02 Diphenhydramine 25 Mg Cap PO 25 mg HS CARMELITA Administration Famotidine 20 mg 02/11/21 21:00 02/11/21 20:03 Famotidine 20 Mg Tab PO 20 mg BID CARMELITA Administration Hydralazine HCl 100 mg 02/11/21 21:00 02/11/21 20:02 Hydralazine Hcl 50 Mg Tab PO 100 mg BID CARMELITA Administration Isosorbide Mononitrate 10 mg 02/11/21 21:00 02/11/21 20:02 Isosorbide Mononitrate 10 Mg Tab PO 10 mg BID CARMELITA Administration Nitroglycerin 0.4 mg 02/11/21 16:07 Nitroglycerin Sl Tabs 0.4 Mg Tab SUBLINGUAL Q5M PRN Chest Pain Intake and Output 02/11/21 02/12/21 02/12/21 22:59 06:59 14:59 Other: Voiding Method Toilet # Voids 1 Weight 68.946 kg 02/11/21 14:17 02/11/21 14:17
[2021-02-12] MEDS ORDERED: LORazepam 1 MG TAB PO PRN (09:52)
[2021-02-12] MEDS: carvediloL 12.5 MG TAB PO SCH (10:11)
[2021-02-12] MEDS: ISOSORBIDE MONONITRATE 10 MG TAB PO SCH (10:12)
[2021-02-12] MEDS: hydrALAZINE HCL 50 MG TAB PO SCH (10:12)
[2021-02-12] MEDS ORDERED: PANTOPRAZOLE 40 MG/10 ML VIAL IVP SCH (10:15)
--- NOTE | 2021-02-12 10:56 | US ---
EXAMINATION TYPE: US abdomen complete DATE OF EXAM: 02/12/2021 COMPARISON: NONE CLINICAL HISTORY: abd pain, abd aortic aneurysm?. abd pain, no personal history of AAA or family hist ory, cholecystectomy EXAM MEASUREMENTS: Liver Length: 15.1 cm Gallbladder Wall: Surgically absent CBD: 0.7 cm Spleen: 9.2 cm Right Kidney: 9.7 x 4.2 x 3.9 cm Left Kidney: 9.5 x 3.9 x 4.9 cm Pancreas: Limited by bowel gas. Visualized portions within normal limits. Liver: wnl Gallbladder: Surgically absent Evidence for sonographic Cannon's sign: no CBD: wnl Spleen: wnl Right Kidney: wnl Left Kidney: wnl Upper IVC: wnl Abd Aorta: wnl IMPRESSION: 1. Postcholecystectomy changes with no definite acute process.
--- NOTE | 2021-02-12 14:47 | P.HPIM ---
History of Present Illness Patient was a 66-year-old female with a previous history of cholecystitis came in with with moderately severe epigastric abdominal pain with no nausea, pain is dull and burning Sensation where no association with food. Patient does take Pepcid at home. Patient pain was pulsatile and was concerned about the abdominal aortic aneurysm because of which obtained an ultrasound which did not show any aneurysm. Cardiology was also consulted with concerns of chest pain although patient pain is mostly abdominal patient and troponins were negative and EKG did not show any significant abnormality patient had history of carotid artery disease and the PCI in the past. Please refer to cardiology documentation for further details. REVIEW OF SYSTEMS: CONSTITUTIONAL: No fever, no malaise, no fatigue. HEENT: No recent visual problems or hearing problems. Denied any sore throat. CARDIOVASCULAR: No chest pain, orthopnea, PND, no palpitations, no syncope. PULMONARY: No shortness of breath, no cough, no hemoptysis. GASTROINTESTINAL: As mentioned in HPI NEUROLOGICAL: No headaches, no weakness, no numbness. HEMATOLOGICAL: Denies any bleeding or petechiae. GENITOURINARY: Denies any burning micturition, frequency, or urgency. MUSCULOSKELETAL/RHEUMATOLOGICAL: Denies any joint pain, swelling, or any muscle pain. ENDOCRINE: Denies any polyuria or polydipsia. The rest of the 14-point review of systems is negative. PHYSICAL EXAMINATION: GENERAL: The patient is alert and oriented x3, not in any acute distress. Well d eveloped, well nourished. HEENT: Pupils are round and equally reacting to light. EOMI. No scleral icterus. No conjunctival pallor. Normocephalic, atraumatic. No pharyngeal erythema. No thyromegaly. CARDIOVASCULAR: S1 and S2 present. No murmurs, rubs, or gallops. PULMONARY: Chest is clear to auscultation, no wheezing or crackles. ABDOMEN: Soft, nontender, nondistended, normoactive bowel sounds. No palpable organomegaly. MUSCULOSKELETAL: No joint swelling or deformity. EXTREMITIES: No cyanosis, clubbing, or pedal edema. NEUROLOGICAL: Gross neurological examination did not reveal any focal deficits. SKIN: No rashes. Assessment and plan -Ruled out acute coronary syndromes and with cardiology. Possible peptic ulcer disease or gastritis, patient will be discharged on 15 is a 40 mg twice a day of a proton pulmonary noted this can you Pepcid. Follow with PCP as an outpatient. OF THE ABDOMEN IS NEGATIVE hyperlipidemia patient did not tolerate Lipitor in the past patient will be discharged on Crestor. Patient has LDL of 151 -Gases esophageal reflux disease -Coronary artery disease with previous stents -Hypertension -History of mitral valve prolapse Past Medical History Past Medical History: Coronary Artery Disease (CAD), GERD/Reflux, H yperlipidemia, Hypertension, Myocardial Infarction ([place]), Mitral Valve Prolapse (MVP), Osteoarthritis (OA) Additional Past Medical History / Comment(s): hiatal hernia, H. Pylori in Sep 08 2018, bulging disc in C5/C6 Last Myocardial Infarction Date:: July 13 2018 History of Any Multi-Drug Resistant Organisms: None Reported Past Surgical History: Cholecystectomy, Heart Catheterization Additional Past Surgical History / Comment(s): laparoscopies, SKYLER (May 2016), heart cath with no stent 20% calcification in LAD in July 13, 2018 at [place]. Past Anesthesia/Blood Transfusion Reactions: No Reported Reaction, Family History of Problems w/ Anesthesia Additional Past Anesthesia/Blood Transfusion Reaction / Comment(s): mom has a hard time coming out Past Psychological History: Anxiety Smoking Status: Former smoker Past Alcohol Use History: None Reported Additional Past Alcohol Use History / Comment(s): quit smoking 2006, smoked since age 15, 1 PPD. 1-2 glasses wine occationally Past Drug Use History: None Reported - Past Family History Mother Family Medical History: Hyperlipidemia, Hypertension Father Family Medical History: Mitral Valve Prolapse (MVP) Additional Family Medical History / Comment(s): brain bleed Medications and Allergies Home Medications Medication Instructions Recorded Confirmed Type Fish Oil/Dha/Epa [Fish Oil 1,200 1 each PO DAILY 04/01/16 02/11/21 History mg Fish Oil] Multivitamins, Thera [Multivitamin 1 tab PO DAILY 04/01/16 02/11/21 History (formulary)] Vitamin B Complex 1 tab PO DAILY 04/01/16 02/11/21 History Carvedilol [Coreg] 25 mg PO BID 11/11/18 02/11/21 History LORazepam [Ativan] 1 mg PO DIRECTED PRN 11/11/18 02/11/21 History Isosorbide Mononitrate [Ismo] 10 mg PO BID 12/08/19 02/11/21 History Baclofen [Lioresal] 20 mg PO BID PRN 02/11/21 02/11/21 History Bifidobacterium Infantis [Align] 4 mg PO DAILY 02/11/21 02/11/21 History Cholecalciferol [Vitamin D3 (25 25 mcg PO DAILY 02/11/21 02/11/21 History Mcg = 1000 Iu)] Mv-Min/Vit C/Glut/Lysine/Hb124 1 tab PO DAILY 02/11/21 02/11/21 History [Immune Support Chewable Tablet] diphenhydrAMINE [Benadryl] 50 mg PO HS 02/11/21 02/11/21 History Pantoprazole Sodium [Protonix] 40 mg PO BID #30 tab 02/12/21 Rx Rosuvastatin Calcium [Crestor] 20 mg PO DAILY #30 tab 02/12/21 Rx Allergies Allergy/AdvReac Type Severity Reaction Status Date / Time ciprofloxacin [From Cipro] Allergy Unknown Verified 02/11/21 16:50 Macrolide Antibiotics Allergy Unknown Verified 02/11/21 16:50 morphine Allergy Unknown Verified 02/11/21 16:50 nifedipine [From Procardia] Allergy Swelling Verified 02/11/21 16:50 Physical Exam Vitals: Vital Signs Temp Pulse Pulse Resp BP BP Pulse Ox 02/12/21 07:00 97.9 F 61 15 105/64 96 02/12/21 01:58 98.1 F 67 18 106/62 95 02/12/21 01:04 70 02/11/21 19:40 70 18 02/11/21 19:13 98.0 F 71 18 160/82 99 02/11/21 17:58 97.7 F 70 18 169/78 98 02/11/21 16:59 62 18 146/92 98 Intake and Output 02/11/21 02/12/21 02/12/21 22:59 06:59 14:59 Other: Voiding Method Toilet # Voids 1 Weight 68.946 kg Results CBC & Chem 7: 02/11/21 14:17 02/11/21 14:17 Labs: Abnormal Lab Results - Last 24 Hours (Table) 02/11/21 02/12/21 Range/Units 14:17 05:10 Sodium 135 L (137-145) mmol/L Carbon Dioxide 21 L (22-30) mmol/L Glucose 117 H (74-99) mg/dL Cholesterol 235.00 H (0.00-200.00) mg/dL LDL Cholesterol, Calc 151.2 H (0.0-131.0) mg/dL HDL Cholesterol 63.20 H (40.00-60.00) mg/dL Thrombosis Risk Factor Assmnt - Choose All That Apply Each Risk Factor Represents 2 Points: Age 61-74 years Thrombosis Risk Factor Assessment Total Risk Factor Score: 2 Thrombosis Risk Factor Assessment Level: Low Risk
--- NOTE | 2021-02-12 14:47 | P.DS ---
Providers Date of admission: 02/11/21 16:08 Attending physician: Delgado Bowers MD Consults: 02/11/21 16:08 Consult Physician Urgent Consulting Provider: [facility] Consult Reason/Comments: Chest pain Do you want consulting provider notified?: Yes Primary care physician: [facility] Course: please refer to my history of present illness for further details Plan - Discharge Summary New Discharge Prescriptions: New Rosuvastatin Calcium [Crestor] 20 mg PO DAILY #30 tab Pantoprazole Sodium [Protonix] 40 mg PO BID #30 tab Continue Vitamin B Complex 1 tab PO DAILY Multivitamins, Thera [Multivitamin (formulary)] 1 tab PO DAILY Fish Oil/Dha/Epa [Fish Oil 1,200 mg Fish Oil] 1 each PO DAILY LORazepam [Ativan] 1 mg PO DIRECTED PRN PRN Reason: Anxiety Carvedilol [Coreg] 25 mg PO BID Isosorbide Mononitrate [Ismo] 10 mg PO BID Cholecalciferol [Vitamin D3 (25 Mcg = 1000 Iu)] 25 mcg PO DAILY diphenhydrAMINE [Benadryl] 50 mg PO HS Bifidobacterium Infantis [Align] 4 mg PO DAILY Baclofen [Lioresal] 20 mg PO BID PRN PRN Reason: NECK PAIN Mv-Min/Vit C/Glut/Lysine/Hb124 [Immune Support Chewable Tablet] 1 tab PO DAILY Discontinued Spironolactone [Aldactone] 25 mg PO DAILY Famotidine [Pepcid] 40 mg PO HS Ketorolac [Toradol] 10 mg PO QID PRN PRN Reason: NECK PAIN Discharge Medication List Fish Oil/Dha/Epa [Fish Oil 1,200 mg Fish Oil] 1 each PO DAILY 04/01/16 [History] Multivitamins, Thera [Multivitamin (formulary)] 1 tab PO DAILY 04/01/16 [History] Vitamin B Complex 1 tab PO DAILY 04/01/16 [History] Carvedilol [Coreg] 25 mg PO BID 11/11/18 [History] LORazepam [Ativan] 1 mg PO DIRECTED PRN 11/11/18 [History] Isosorbide Mononitrate [Ismo] 10 mg PO BID 12/08/19 [History] Baclofen [Lioresal] 20 mg PO BID PRN 02/11/21 [History] Bifidobacterium Infantis [Align] 4 mg PO DAILY 02/11/21 [History] Cholecalciferol [Vitamin D3 (25 Mcg = 1000 Iu)] 25 mcg PO DAILY 02/11/21 [History] Mv-Min/Vit C/Glut/Lysine/Hb124 [Immune Support Chewable Tablet] 1 tab PO DAILY 02/11/21 [History] diphenhydrAMINE [Benadryl] 50 mg PO HS 02/11/21 [History] Pantoprazole Sodium [Protonix] 40 mg PO BID #30 tab 02/12/21 [Rx] Rosuvastatin Calcium [Crestor] 20 mg PO DAILY #30 tab 02/12/21 [Rx] Follow up Appointment(s)/Referral(s): Dorina Mckeon MD [Primary Care Provider] - 3 Days Georgie Rosario MD [REFERRING] - 1 Week
[2021-02-12 15:49] VITALS: BP 125/74; PULSE 70; TEMP 98.1
[2021-02-13] MEDS ORDERED: ASPIRIN 81 MG PO SCH (09:00)
[2021-02-13] MEDS ORDERED: LACTOBACILLUS ACIDOPH & BULGAR 1 EACH PACKET PO SCH (09:00)
[2021-02-13] MEDS ORDERED: NON FORMULARY DRUG (Vitamin B Complex [Vitamin B Complex] 1 EACH Capsule) PO SCH (09:00)
== END 2021-02-12 17:35 | disposition home or self-care (01) ==
LOC: EC 13:48 → 6NMEDSUR 16:08
PROVIDERS: ADMIT Internal Medicine; ATTEND Internal Medicine
DX: R07.89 Other chest pain (principal); R10.13 Epigastric pain; K21.9 Gastro-esophageal reflux disease without esophagitis; K57.90 Diverticulosis of intestine, part unspecified, without perforation or abscess without bleeding; K44.9 Diaphragmatic hernia without obstruction or gangrene; I10 Essential (primary) hypertension; I25.10 Atherosclerotic heart disease of native coronary artery without angina pectoris; I34.1 Nonrheumatic mitral (valve) prolapse; I45.10 Unspecified right bundle-branch block; R06.02 Shortness of breath; E78.5 Hyperlipidemia, unspecified; M50.222 Other cervical disc displacement at C5-C6 level; M19.90 Unspecified osteoarthritis, unspecified site; I25.2 Old myocardial infarction; F41.9 Anxiety disorder, unspecified; Z20.822 Contact with and (suspected) exposure to COVID-19; Z79.82 Long term (current) use of aspirin; Z79.899 Other long term (current) drug therapy; Z88.2 Allergy status to sulfonamides; Z88.5 Allergy status to narcotic agent; Z88.8 Allergy status to other drugs, medicaments and biological substances; Z87.891 Personal history of nicotine dependence; Z86.19 Personal history of other infectious and parasitic diseases; Z90.49 Acquired absence of other specified parts of digestive tract; Z98.890 Other specified postprocedural states; Z84.89 Family history of other specified conditions; Z82.49 Family history of ischemic heart disease and other diseases of the circulatory system; Z83.49 Family history of other endocrine, nutritional and metabolic diseases
CPT/HCPCS: 96374; 99285; 36415; 93005; 85379; 80061; 80053; 82150; 83690; 83735; 84484; 85025; 85610; 85730; 87635; 71046; 76700; G0378 ×2; C9113

== ENCOUNTER 2022-10-22 18:05 | Observation (INO) | payer OTHER ==
[2022-10-22] MEDS ORDERED: ASPIRIN 81 MG PO STA (18:36)
[2022-10-22] MEDS ORDERED: NITROGLYCERIN SL TABS 0.4 MG TAB SUBLINGUAL STA ×3 (18:36)
--- NOTE | 2022-10-22 18:38 | ED ---
General Adult HPI - General Chief complaint: Chest Pain Stated complaint: chest pain Time Seen by Provider: 10/22/22 18:22 Source: patient, RN notes reviewed Mode of arrival: ambulatory Limitations: no limitations - History of Present Illness Initial comments: Patient is a pleasant 61-year-old female presenting to the emergency department with concerns with chest discomfort. Onset of symptoms was a couple hours ago. She complains of chest tightness. Patient does have some associated dyspnea. No nausea. No diaphoresis. No history of similar symptoms previously however patient does have history of previous [place]. No leg pain or leg swelling. - Related Data Home Medications Medication Instructions Recorded Confirmed Fish Oil/Dha/Epa [Fish Oil 1,200 1 each PO DAILY 04/01/16 02/11/21 mg Fish Oil] Multivitamins, Thera [Multivitamin 1 tab PO DAILY 04/01/16 02/11/21 (formulary)] Vitamin B Complex 1 tab PO DAILY 04/01/16 02/11/21 LORazepam [Ativan] 1 mg PO DIRECTED PRN 11/11/18 02/11/21 carvediloL [Coreg] 25 mg PO BID 11/11/18 02/11/21 Isosorbide Mononitrate [Ismo] 10 mg PO BID 12/08/19 02/11/21 Baclofen [Lioresal] 20 mg PO BID PRN 02/11/21 02/11/21 Bifidobacterium Infantis [Align] 4 mg PO DAILY 02/11/21 02/11/21 Cholecalciferol [Vitamin D3 (25 25 mcg PO DAILY 02/11/21 02/11/21 Mcg = 1000 Iu)] Mv-Min/Vit C/Glut/Lysine/Hb124 1 tab PO DAILY 02/11/21 02/11/21 [Immune Support Chewable Tablet] diphenhydrAMINE [Benadryl] 50 mg PO HS 02/11/21 02/11/21 Previous Rx's Medication Instructions Recorded Pantoprazole Sodium [Protonix] 40 mg PO BID #30 tab 02/12/21 Rosuvastatin Calcium [Crestor] 20 mg PO DAILY #30 tab 02/12/21 Allergies Allergy/AdvReac Type Severity Reaction Status Date / Time ciprofloxacin [From Cipro] Allergy Unknown Verified 10/22/22 18:14 Macrolide Antibiotics Allergy Unknown Verified 10/22/22 18:14 morphine Allergy Unknown Verified 10/22/22 18:14 nifedipine [From Procardia] Allergy Swelling Verified 10/22/22 18:14 Review of Systems ROS Statement: Those systems with pertinent positive or pertinent negative responses have been documented in the HPI. ROS Other: All systems not noted in ROS Statement are negative. Constitutional: Denies: fever Eyes: Denies: eye pain ENT: Denies: ear pain Respiratory: Reports: dyspnea. Denies: cough Cardiovascular: Reports: as per HPI, chest pain Endocrine: Denies: fatigue Gastrointestinal: Denies: abdominal pain Genitourinary: Denies: dysuria Musculoskeletal: Denies: back pain Skin: Denies: rash Neurological: Denies: weakness Past Medical History Past Medical History: Coronary Artery Disease (CAD), GERD/Reflux, Hyperlipidemia, Hypertension, Myocardial Infarction ([place]), Mitral Valve Prolapse (MVP), Osteoarthritis (OA) Additional Past Medical History / Comment(s): hiatal hernia, H. Pylori in Sep 08 2018, bulging disc in C5/C6 Last Myocardial Infarction Date:: July 13 2018 History of Any Multi-Drug Resistant Organisms: None Reported Past Surgical History: Cholecystectomy, Heart Catheterization Additional Past Surgical History / Comment(s): laparoscopies, SKYLER (May 2016), heart cath with no stent 20% calcification in LAD in July 13, 2018 at [place]. Past Anesthesia/Blood Transfusion Reactions: No Reported Reaction, Family History of Problems w/ Anesthesia Additional Past Anesthesia/Blood Transfusion Reaction / Comment(s): mom has a hard time coming out Past Psychological History: Anxiety Smoking Status: Former smoker Past Alcohol Use History: None Reported Past Drug Use History: None Reported - Past Family History Mother Family Medical History: Hyperlipidemia, Hypertension Father Family Medical History: Mitral Valve Prolapse (MVP) Additional Family Medical History / Comment(s): brain bleed General Exam Limitations: no limitations General appearance: alert, in no apparent distress Head exam: Present: normocephalic Eye exam: Present: normal appearance Neck exam: Present: normal inspection Respiratory exam: Present: normal lung sounds bilaterally. Absent: chest wall tenderness Cardiovascular Exam: Present: regular rate, normal rhythm Expanded Peripheral pulses: 2+: Radial (R), Radial (L), Dorsalis Pedis (R), Dorsalis Pedis (L) GI/Abdominal exam: Present: soft. Absent: tenderness Extremities exam: Present: normal inspection. Absent: pedal edema, calf tenderness Neurological exam: Present: alert Psychiatric exam: Present: normal affect, normal mood Skin exam: Present: normal color Course Vital Signs 10/22/22 10/22/22 10/22/22 18:14 18:22 19:25 Temperature 99.0 F 98.1 F Pulse Rate 70 68 66 Respiratory 22 20 18 Rate Blood Pressure 178/95 190/108 136/94 O2 Sat by Pulse 98 100 98 Oximetry 10/22/22 19:30 Temperature Pulse Rate 63 Respiratory 15 Rate Blood Pressure 136/94 O2 Sat by Pulse 96 Oximetry EKG Findings - EKG Results: EKG: interpreted by ERMD, sinus rhythm, normal axis, normal QRS, normal ST/T Medical Decision Making - Medical Decision Making Was pt. sent in by a medical professional or institution (, PA, [employer] SALES REPRESENTATIVE, urgent care, hospital, or skilled nursing...) When possible be specific @ -No Did you speak to anyone other than the patient for history (EMS, parent, family, police, friend...)? What history was obtained from this source @ -No Did you review nursing and triage notes (agree or disagree)? Why? @ -I reviewed and agree with nursing and triage notes Were old charts reviewed (outside hosp., previous admission, EMS record, old EKG, old radiological studies, urgent care reports/EKG's, skilled nursing records)? Report findings @ -No old charts were reviewed Differential Diagnosis (chest pain, altered mental status, abdominal pain women, abdominal pain men, vaginal bleeding, weakness, fever, dyspnea, syncope, headache, dizziness, GI bleed, back pain, seizure, CVA, palpatations, mental health, musculoskeletal)? @ -Differential Chest Pain: Stable Angina, Unstable Angina, STEMI, NSTEMI Aortic Dissection, Pneumothorax, Musculoskeletal, Esophageal Spasm GERD, Cholecystitis, Pancreatitis, Zoster, this is not meant to be an all-inclusive list. EKG interpreted by me (3pts min.). @ -As above X-rays interpreted by me (1pt min.). @ -Chest x-ray shows no acute process CT interpreted by me (1pt min.). @ -Report reviewed U/S interpreted by me (1pt. min.). @ -None done What testing was considered but not performed or refused? (CT, X-rays, U/S, labs)? Why? @ -None What meds were considered but not given or refused? Why? @ -None Did you discuss the management of the patient with other professionals (professionals i.e. , PA, [employer] SALES REPRESENTATIVE, lab, RT, psych nurse, social media director, court security officer, teacher, fire management officer, behavioral health case manager)? Give summary @ -Case discussed with practitioner Gonsalo Comer, who will admit for Dr. Roy, who admits for Dr. Hernandez Was smoking cessation discussed for >3mins.? @ -No Was critical care preformed (if so, how long)? @ -No Were there social determinants of health that impacted care today? How? (Homelessness, low income, unemployed, alcoholism, drug addiction, transportation, low edu. Level, literacy, decrease access to med. care, snf, rehab)? @ -No Was there de-escalation of care discussed even if they declined (Discuss DNR or withdrawal of care, Hospice)? DNR status @ -No What co-morbidities impacted this encounter? (DM, HTN, Smoking, COPD, CAD, Cancer, CVA, ARF, Chemo, Hep., AIDS, mental health diagnosis, sleep apnea, morbid obesity)? @ -None Was patient admitted / discharged? Hospital course, mention meds given and ro absentee-[place], prescriptions, significant lab abnormalities, going to OR and other pertinent info. @ -Patient reevaluated and significant improvement with nitroglycerin. Patient near symptom free at this time. Patient updated on results and plan. Patient admitted Undiagnosed new problem with uncertain prognosis? @ -No Drug Therapy requiring intensive monitoring for toxicity (Heparin, Nitro, Insulin, Cardizem)? @ -No Were any procedures done? @ -No Diagnosis/symptom? @ -Chest pain Acute, or Chronic, or Acute on Chronic? @ -Acute Uncomplicated (without systemic symptoms) or Complicated (systemic symptoms)? @ -default Side effects of treatment? @ -No Exacerbation, Progression, or Severe Exacerbation? @ -No Poses a threat to life or bodily function? How? (Chest pain, [place], [place], pneumonia, PE, COPD, DKA, ARF, appy, cholecystitis, CVA, Diverticulitis, Homicidal, Suicidal, threat to staff... and all critical care pts) @ -No - Lab Data Result diagrams: 10/22/22 18:57 10/22/22 18:57 Lab Results 10/22/22 10/22/22 10/22/22 Range/Units 18:57 18:57 18:57 WBC 3.9 (3.8-10.6) k/uL RBC 3.55 L (3.80-5.40) m/uL Hgb 12.3 (11.4-16.0) gm/dL Hct 34.7 (34.0-46.0) % MCV 97.7 (80.0-100.0) fL MCH 34.5 (25.0-35.0) pg MCHC 35.3 (31.0-37.0) g/dL RDW 12.0 (11.5-15.5) % Plt Count 226 (150-450) k/uL MPV 7.4 Neutrophils % 56 % Lymphocytes % 32 % Monocytes % 5 % Eosinophils % 3 % Basophils % 1 % Neutrophils # 2.2 (1.3-7.7) k/uL Lymphocytes # 1.2 (1.0-4.8) k/uL Monocytes # 0.2 (0-1.0) k/uL Eosinophils # 0.1 (0-0.7) k/uL Basophils # 0.0 (0-0.2) k/uL PT 10.5 (9.0-12.0) sec INR 1.0 (<1.2) APTT 23.4 (22.0-30.0) sec D-Dimer 1.58 H (<0.60) mg/L FEU Sodium 137 (137-145) mmol/L Potassium 4.7 (3.5-5.1) mmol/L Chloride 107 (98-107) mmol/L Carbon Dioxide 23 (22-30) mmol/L Anion Gap 7 mmol/L BUN 9 (7-17) mg/dL Creatinine 0.55 (0.52-1.04) mg/dL Est GFR (CKD-EPI)AfAm >90 (>60 ml/min/1.73 sqM) Est GFR (CKD-EPI)NonAf >90 (>60 ml/min/1.73 sqM) Glucose 104 H (74-99) mg/dL Calcium 9.3 (8.4-10.2) mg/dL Magnesium 1.9 (1.6-2.3) mg/dL Total Bilirubin 0.9 (0.2-1.3) mg/dL AST 36 (14-36) U/L ALT 25 (4-34) U/L Alkaline Phosphatase 40 (38-126) U/L Troponin I (0.000-0.034) ng/mL NT-Pro-B Natriuret Pep pg/mL Total Protein 7.2 (6.3-8.2) g/dL Albumin 4.3 (3.5-5.0) g/dL 10/22/22 10/22/22 Range/Units 18:57 18:57 WBC (3.8-10.6) k/uL RBC (3.80-5.40) m/uL Hgb (11.4-16.0) gm/dL Hct (34.0-46.0) % MCV (80.0-100.0) fL MCH (25.0-35.0) pg MCHC (31.0-37.0) g/dL RDW (11.5-15.5) % Plt Count (150-450) k/uL MPV Neutrophils % % Lymphocytes % % Monocytes % % Eosinophils % % Basophils % % Neutrophils # (1.3-7.7) k/uL Lymphocytes # (1.0-4.8) k/uL Monocytes # (0-1.0) k/uL Eosinophils # (0-0.7) k/uL Basophils # (0-0.2) k/uL PT (9.0-12.0) sec INR (<1.2) APTT (22.0-30.0) sec D-Dimer (<0.60) mg/L FEU Sodium (137-145) mmol/L Potassium (3.5-5.1) mmol/L Chloride (98-107) mmol/L Carbon Dioxide (22-30) mmol/L Anion Gap mmol/L BUN (7-17) mg/dL Creatinine (0.52-1.04) mg/dL Est GFR (CKD-EPI)AfAm (>60 ml/min/1.73 sqM) Est GFR (CKD-EPI)NonAf (>60 ml/min/1.73 sqM) Glucose (74-99) mg/dL Calcium (8.4-10.2) mg/dL Magnesium (1.6-2.3) mg/dL Total Bilirubin (0.2-1.3) mg/dL AST (14-36) U/L ALT (4-34) U/L Alkaline Phosphatase (38-126) U/L Troponin I <0.012 (0.000-0.034) ng/mL NT-Pro-B Natriuret Pep 779 pg/mL Total Protein (6.3-8.2) g/dL Albumin (3.5-5.0) g/dL Disposition Clinical Impression: Chest pain Disposition: ADMITTED IP TO THIS HOSP Is patient prescribed a controlled substance at d/c from ED?: No Referrals: Dorina Mckeon MD [Primary Care Provider] - 1-2 days Time of Disposition: 20:51
[2022-10-22 19:08] LABS: Basophils % (A) 1 %; Eosinophils # (A) 0.1 k/uL (0-0.7); Eosinophils % (A) 3 %; HCT 34.7 % (34.0-46.0); HGB 12.3 gm/dL (11.4-16.0); Lymphocytes # (A) 1.2 k/uL (1.0-4.8); Lymphocytes % (A) 32 %; MCH 34.5 pg (25.0-35.0); MCHC 35.3 g/dL (31.0-37.0); MCV 97.7 fL (80.0-100.0); Mean Platelet Volume 7.4; Monocytes # (A) 0.2 k/uL (0-1.0); Monocytes % (A) 5 %; Neutrophils # (A) 2.2 k/uL (1.3-7.7); Neutrophils % (A) 56 %; Platelet Count 226 k/uL (150-450); RBC 3.55 m/uL (3.80-5.40); WBC 3.9 k/uL (3.8-10.6)
[2022-10-22 19:22] LABS: ALT 25 U/L (4-34); AST 36 U/L (14-36); African American GFR (CKD) >90 (>60 ml/min/1.73 sqM); Albumin 4.3 g/dL (3.5-5.0); Alkaline Phosphatase 40 U/L (38-126); Anion Gap 7 mmol/L; Blood Urea Nitrogen 9 mg/dL (7-17); Calcium 9.3 mg/dL (8.4-10.2); Carbon Dioxide 23 mmol/L (22-30); Chloride 107 mmol/L (98-107); Glucose 104 mg/dL (74-99); Magnesium 1.9 mg/dL (1.6-2.3); Non-African American GFR(CKD) >90 (>60 ml/min/1.73 sqM); Sodium 137 mmol/L (137-145); Total Bilirubin 0.9 mg/dL (0.2-1.3); Total Protein 7.2 g/dL (6.3-8.2)
[2022-10-22 19:25] LABS: Potassium 4.7 mmol/L (3.5-5.1)
--- NOTE | 2022-10-22 19:26 | XR ---
EXAMINATION TYPE: XR chest 2V DATE OF EXAM: 10/22/2022 7:11 PM COMPARISON: Chest radiographs from 02/11/2021 TECHNIQUE: XR chest 2V Frontal and lateral views of the chest. CLINICAL INDICATION:Female, 61 years old with history of Chest Pain; FINDINGS: Lungs/Pleura: There is no evidence of pleural effusion, focal consolidation, or pneumothorax. Pulmonary vascularity: Unremarkable. Heart/mediastinum: Cardiomediastinal silhouette is unremarkable. Musculoskeletal: No acute osseous pathology. IMPRESSION: No acute cardiopulmonary disease/process.
[2022-10-22 19:39] LABS: Partial Thromboplastin Time 23.4 sec (22.0-30.0); Prothrombin Time 10.5 sec (9.0-12.0)
--- NOTE | 2022-10-22 20:36 | CT ---
EXAMINATION TYPE: CT angio chest CT DLP: 275.4 mGycm, Automated exposure control for dose reduction was used. DATE OF EXAM: 10/22/2022 8:26 PM COMPARISON: Chest radiograph from same day. 11/12/2018 CT chest CLINICAL INDICATION:Female, 61 years old with history of cp; sob, pain TECHNIQUE/CONTRAST: CTA scan of the thorax is performed with IV Contrast, patient injected with 100ml mL of Isovue 370, p ulmonary embolism protocol. MIP images are created and reviewed these are created on a separate work station.. FINDINGS: Pulmonary Artery: There is no evidence for a filling defect within the pulmonary vasculature to sugge st acute pulmonary embolism. The pulmonary artery is of normal size. Lungs/Pleura: No evidence of focal consolidation, pleural effusion or pneumothorax. Airway: Large airways are patent. Heart: Heart is within normal limits for size. Vasculature: No evidence of aortic aneurysm. Mediastinum: No gross evidence of adenopathy. Musculoskeletal: No acute osseous abnormalities Soft Tissues: Unremarkable. Lower neck: No significant findings. Upper Abdomen: The gallbladder is surgically absent. The right lobe hypertrophy changes. IMPRESSION: 1. No evidence of pulmonary embolism. 2. No evidence for acute process.
[2022-10-22] MEDS ORDERED: NITROGLYCERIN SL TABS 0.4 MG TAB SUBLINGUAL PRN (20:54)
[2022-10-23] MEDS: NITROGLYCERIN OINT 1 INCH/GM PACKET TOPICAL SCH ×2 (01:11→06:01)
[2022-10-23 05:07] VITALS: TEMP 98.4
[2022-10-23] MEDS ORDERED: ASPIRIN 325 MG TAB PO SCH (09:00)
[2022-10-23] MEDS ORDERED: SPIRONOLACTONE 25 MG TAB PO SCH (09:00)
[2022-10-23] MEDS ORDERED: hydrALAZINE HCL 50 MG TAB PO SCH ×2 (09:00)
[2022-10-23] MEDS ORDERED: ASPIRIN 81 MG PO SCH (09:00)
[2022-10-23] MEDS ORDERED: FAMOTIDINE 20 MG TAB PO PRN (09:45)
[2022-10-23] MEDS ORDERED: ACETAMINOPHEN TAB 325 MG TAB PO PRN (09:45)
[2022-10-23] MEDS ORDERED: CHOLECALCIFEROL 25 MCG (1000 IU) TABLET PO SCH (09:45)
[2022-10-23] MEDS ORDERED: BACLOFEN 10 MG TAB PO PRN (09:45)
[2022-10-23] MEDS: ISOSORBIDE MONONITRATE 10 MG TAB PO SCH (09:51)
[2022-10-23] MEDS ORDERED: PANTOPRAZOLE 40 MG TABLET PO SCH (10:00)
[2022-10-23] MEDS ORDERED: MULTIVITAMINS, THERA 1 EACH TAB PO SCH (10:00)
--- NOTE | 2022-10-23 11:02 | P.CRDCN ---
History of Present Illness Consult date: 10/23/22 Consult reason: chest pain History of present illness: History of present illness: This is a 61 year old female patient of Dr. Rosario with reported myocardial infarction in 2019 without stent or surgery, history of hypertension, dyslipidemia, moderate mitral regurgitation. Patient complains of chest pain shortness of breath. She states symptoms have been going on for a couple hours. Yesterday, her blood pressure was high all day and then she developed more chest pain or shortness of breath following that. Her initial blood pressure on arrival was 190/108. She is status post aspirin and nitro ointment. Patient is seen today in the emergency center waiting for a bed on the observation unit. Patient reports that she had a stress test done in February 2022. EKG sinus rhythm Chest x-ray: No acute process CTA of the chest revealed no evidence of pulmonary embolism. No acute process. CBC and CMP unremarkable. D-dimer 1.58. Troponin negative 3. Triglycerides 112, cholesterol 177, LDL 104, HDL 50. Home cardiac medications: Coreg 25 mg twice daily, hydralazine 25-50 mg twice daily, Imdur 10 mg twice daily, pravastatin 10 mg at bedtime, Aldactone 25 mg daily. Cardiac catheterization 2016 revealed mild nonobstructive coronary artery disease Echocardiogram 2017 revealed normal LVEF with mild to moderate MR SKYLER 2017 moderate MR and TR with normal LVEF Review Of Systems: At the time of my evaluation: Constitutional: No fever, no chills. No weakness, fatigue or lethargy. EENT: No headache. No dizziness. Lungs: No shortness of breath, cough, no sputum production. No wheezing. Cardiovascular: No chest pain, no lower extremity edema. No palpitations. No paroxysmal nocturnal dyspnea. No orthopnea. No lightheadedness or dizziness. No syncopal episodes. Abdominal: No abdominal pain. No nausea, vomiting. No diarrhea. No constipation. No bloody or tarry stools. Genitourinary: No dysuria.. No urinary retention. Musculoskeletal: No myalgias. No muscle weakness, no frequent falls. No back pain. No neck pain. Integumentary: No wounds. No rash. No unusual bruising. Neurologic: No aphasia. No facial droop. No change in mentation. No head injury. No headache. Physical examination: Gen: This is a 61-year-old female. She is resting on the ear surgery and appears to be comfortable. VS: reviewed. 159/87, heart rate 50s and 60s HEENT: Head is atraumatic, normocephalic. Pupils equal, round. Sclerae is anicteric. NECK: Supple. No JVD. . LUNGS: Clear to auscultation. No wheezes or rhonchi. No intercostal retractions. HEART: Regular rate and rhythm. No murmur. ABDOMEN: Soft No tenderness. EXTREMITIES: No pedal edema. No calf tenderness. NEUROLOGICAL: Patient is awake, alert and oriented x3. Assessment: Uncontrolled hypertension Dyslipidemia Moderate mitral regurgitation Plan: Resume patient's home cardiac medications and increase hydralazine to 50 mg 3 times daily Obtain 2-D echocardiogram and Doppler study to assess cardiac structure and function If echocardiogram is unremarkable, patient is cleared for discharge and may follow-up with Dr. Rosario as an outpatient. Recommend workup for secondary hypertension as an outpatient with her PCP or primary state historical society director Thank you kindly for this consultation. Nurse practitioner note has been reviewed, I agree with documented findings and plan of care. Patient was seen and examined. Past Medical History Past Medical History: Coronary Artery Disease (CAD), GERD/Reflux, Hyperlipi demia, Hypertension, Myocardial Infarction (DC), Mitral Valve Prolapse (MVP), Osteoarthritis (OA) Additional Past Medical History / Comment(s): hiatal hernia, H. Pylori in Sep 08 2018, bulging disc in C5/C6 Last Myocardial Infarction Date:: July 13 2018 History of Any Multi-Drug Resistant Organisms: None Reported Past Surgical History: Cholecystectomy, Heart Catheterization Additional Past Surgical History / Comment(s): laparoscopies, SKYLER (May 2016), heart cath with no stent 20% calcification in LAD in July 13, 2018 at [place]. Past Anesthesia/Blood Transfusion Reactions: No Reported Reaction, Family History of Problems w/ Anesthesia Additional Past Anesthesia/Blood Transfusion Reaction / Comment(s): mom has a hard time coming out Past Psychological History: Anxiety Smoking Status: Former smoker Past Alcohol Use History: None Reported Past Drug Use History: None Reported - Past Family History Mother Family Medical History: Hyperlipidemia, Hypertension Father Family Medical History: Mitral Valve Prolapse (MVP) Additional Family Medical History / Comment(s): brain bleed Medications and Allergies Home Medications Medication Instructions Recorded Confirmed Type Fish Oil/Dha/Epa [Fish Oil 1,200 1 cap PO DAILY 04/01/16 10/22/22 History mg Fish Oil] Multivitamins, Thera [Multivitamin 1 tab PO DAILY 04/01/16 10/22/22 History (formulary)] LORazepam [Ativan] 1 mg PO DIRECTED PRN 11/11/18 10/22/22 History Isosorbide Mononitrate [Ismo] 10 mg PO BID 12/08/19 10/22/22 History Cholecalciferol [Vitamin D3 (25 25 mcg PO DAILY 02/11/21 10/22/22 History Mcg = 1000 Iu)] Baclofen [Lioresal] 10 mg PO BID PRN 10/22/22 10/22/22 History Famotidine [Pepcid] 20 mg PO DAILY PRN 10/22/22 10/22/22 History Gabapentin [Neurontin] 300 mg PO DIRECTED 10/22/22 10/22/22 History Omeprazole [PriLOSEC] 20 mg PO DAILY 10/22/22 10/22/22 History Pravastatin Sodium [Pravachol] 10 mg PO HS 10/22/22 10/22/22 History Spironolactone [Aldactone] 25 mg PO DAILY 10/22/22 10/22/22 History carvediloL [Coreg] 25 mg PO BID 10/22/22 10/22/22 History diphenhydrAMINE HCL [Benadryl] 25 mg PO HS 10/22/22 10/22/22 History hydrALAZINE HCL [Apresoline] 25 - 50 mg PO BID 10/22/22 10/22/22 History Allergies Allergy/AdvReac Type Severity Reaction Status Date / Time Macrolide Antibiotics Allergy Unknown Verified 10/22/22 21:13 nifedipine [From Procardia] Allergy Swelling Verified 10/22/22 21:13 legs ciprofloxacin [From Cipro] AdvReac Rapid Verified 10/22/22 21:13 Heart Rate morphine AdvReac Nausea & Verified 10/22/22 21:13 Vomiting prednisone AdvReac Rapid Verified 10/22/22 21:13 Heart Rate Physical Exam Vitals: Vital Signs Temp Pulse Resp BP Pulse Ox FiO2 10/23/22 09:42 159/98 10/23/22 09:10 95 21 10/23/22 07:52 62 20 159/87 95 07/12/23 05:00 98.4 F 62 19 117/80 10/23/22 02:00 58 L 17 165/99 10/23/22 00:00 60 19 170/95 10/22/22 23:00 62 20 170/95 10/22/22 22:00 81 22 170/95 10/22/22 21:08 62 21 187/115 98 10/22/22 21:00 58 L 16 176/92 98 10/22/22 20:30 58 L 13 164/93 98 10/22/22 20:00 59 L 12 139/88 98 10/22/22 19:30 63 15 136/94 96 10/22/22 19:25 66 18 136/94 98 10/22/22 18:22 98.1 F 68 20 190/108 100 10/22/22 18:14 99.0 F 70 22 178/95 98 Intake and Output 10/22/22 10/23/22 10/23/22 22:59 06:59 14:59 Other: Weight 71.668 kg Results 10/22/22 18:57 10/22/22 18:57 Cardiac Enzymes 10/22/22 10/22/22 10/22/22 Range/Units 18:57 18:57 21:57 AST 36 (14-36) U/L Troponin I <0.012 <0.012 (0.000-0.034) ng/mL 10/23/22 Range/Units 01:05 AST (14-36) U/L Troponin I <0.012 (0.000-0.034) ng/mL Coagulation 10/22/22 Range/Units 18:57 PT 10.5 (9.0-12.0) sec APTT 23.4 (22.0-30.0) sec Lipids 10/23/22 Range/Units 05:45 Triglycerides 112.00 (0.00-149.00) mg/dL Cholesterol 177.00 (0.00-200.00) mg/dL HDL Cholesterol 50.60 (40.00-60.00) mg/dL Cholesterol/HDL Ratio 3.50 Ratio CBC 10/22/22 Range/Units 18:57 WBC 3.9 (3.8-10.6) k/uL RBC 3.55 L (3.80-5.40) m/uL Hgb 12.3 (11.4-16.0) gm/dL Hct 34.7 (34.0-46.0) % Plt Count 226 (150-450) k/uL Comprehensive Metabolic Panel 10/22/22 Range/Units 18:57 Sodium 137 (137-145) mmol/L Potassium 4.7 (3.5-5.1) mmol/L Chloride 107 (98-107) mmol/L Carbon Dioxide 23 (22-30) mmol/L BUN 9 (7-17) mg/dL Creatinine 0.55 (0.52-1.04) mg/dL Glucose 104 H (74-99) mg/dL Calcium 9.3 (8.4-10.2) mg/dL AST 36 (14-36) U/L ALT 25 (4-34) U/L Alkaline Phosphatase 40 (38-126) U/L Total Protein 7.2 (6.3-8.2) g/dL Albumin 4.3 (3.5-5.0) g/dL Current Medications Generic Name Dose Route Start Last Admin Trade Name Freq PRN Reason Stop Dose Admin Acetaminophen 650 mg 10/23/22 09:45 Acetaminophen Tab 325 Mg Tab PO Q6HR PRN Fever and/ or Pain Aspirin 81 mg 10/23/22 09:00 10/23/22 09:19 Aspirin 81 Mg PO Not Given DAILY [facility] Baclofen 10 mg 10/23/22 09:45 Baclofen 10 Mg Tab PO BID PRN Muscle Spasm Carvedilol 25 mg 10/23/22 17:30 Carvedilol 12.5 Mg Tab PO BID-W/MEALS [facility] Cholecalciferol 25 mcg 10/23/22 09:45 Cholecalciferol 25 Mcg (1000 Iu) Tablet PO DAILY [facility] Diphenhydramine HCl 25 mg 10/23/22 21:00 Diphenhydramine 25 Mg Cap PO HS [facility] Famotidine 20 mg 10/23/22 09:45 Famotidine 20 Mg Tab PO DAILY PRN Heartburn Hydralazine HCl 50 mg 10/23/22 09:00 10/23/22 09:38 Hydralazine Hcl 50 Mg Tab PO 50 mg TID [facility] Administration Isosorbide Mononitrate 10 mg 10/23/22 09:00 10/23/22 09:51 Isosorbide Mononitrate 10 Mg Tab PO 10 mg BID [facility] Administration Multivitamins 1 each 10/23/22 10:00 Multivitamins, Thera 1 Each Tab PO DAILY [facility] Nitroglycerin 0.4 mg 10/22/22 20:54 Nitroglycerin Sl Tabs 0.4 Mg Tab SUBLINGUAL Q5M PRN Chest Pain Pantoprazole Sodium 40 mg 10/23/22 10:00 Pantoprazole 40 Mg Tablet PO DAILY@0730 [facility] Pravastatin Sodium 10 mg 10/23/22 21:00 Pravastatin Sodium 20 Mg Tab PO HS [facility] Spironolactone 25 mg 10/23/22 09:00 10/23/22 09:38 Spironolactone 25 Mg Tab PO 25 mg DAILY [facility] Administration Intake and Output 10/22/22 10/23/22 10/23/22 22:59 06:59 14:59 Other: Weight 71.668 kg 10/22/22 18:57 10/22/22 18:57
[2022-10-23 15:16] VITALS: BP 130/85; PULSE 71; RESP 18
[2022-10-23] MEDS ORDERED: carvediloL 12.5 MG TAB PO SCH (17:30)
[2022-10-23] MEDS ORDERED: diphenhydrAMINE 25 MG CAP PO SCH (21:00)
[2022-10-23] MEDS ORDERED: PRAVASTATIN SODIUM 20 MG TAB PO SCH (21:00)
--- NOTE | 2022-10-23 21:26 | HP ---
HISTORY AND PHYSICAL This is a combined History and Physical and Discharge Summary. CHIEF COMPLAINT: Chest tightness and hypertension. HISTORY OF PRESENT ILLNESS: This is a 61-year-old woman with a past medical history of multiple medical problems including hypertension, hyperlipidemia, and moderate mitral regurgitation, being followed by Dr. Rosario in the outpatient setting, complaining of chest tightness. The patient came to [facility]. The patient had some shortness of breath; but however, the entire cardiac workup was negative including EKG, troponins, and also CT angiogram. Cardiology saw the patient and recommended outpatient followup. There is no history of any fever, rigor, or chills at this time. The patient will be discharged with a plan to follow up with Dr. Rosario, the patient's own autopsy pathologist, and primary physician shortly. PAST MEDICAL HISTORY: Reviewed includes CAD, hypertension, and hyperlipidemia. Rest of the history and rest of the chart are also reviewed. HOME MEDICATIONS: Reviewed include Neurontin. Doses and rest of the medications are noted. ALLERGIES: Reviewed include macrolide antibiotics, and rest of the allergies are reviewed. SOCIAL HISTORY: Previous history of smoking. FAMILY HISTORY: Hypertension, hyperlipidemia, and brain bleed. REVIEW OF SYSTEMS: Fourteen-point review is negative except as mentioned earlier. PHYSICAL EXAMINATION: VITAL SIGNS: Pulse 62, blood pressure 159/87, respirations 20. HEENT: Conjunctivae are normal. NECK: No jugular venous distention. CARDIOVASCULAR: S1 and S2 muffled. RESPIRATORY: Breath sounds diminished at the bases. No rhonchi. No crackles. ABDOMEN: Soft and nontender. LEGS: No edema. NERVOUS SYSTEM: Nonfocal. SKIN: No ulcers or rashes. JOINTS: No active deforming arthropathy. LABORATORY DATA: Reviewed. ASSESSMENT: 1. Chest pain. Myocardial infarction ruled out. Possible coronary artery disease and angina. 2. Hypertension. 3. Hyperlipidemia. 4. History of myocardial infarction. 5. Multiple medical issues. RECOMMENDATIONS AND DISCUSSION: This is a 61-year-old woman presented with multiple medical problems. The patient is asymptomatic at this time. Cardiology saw the patient and cleared the patient for discharge after 2D echo. After Cardiology cleared the patient, I would recommend the patient to be discharged and follow up closely with the patient's own autopsy pathologist and primary physician shortly. See the discharge reconciliation sheet for list of medications. Once again, the patient is stable, but overall prognosis is guarded. I discussed with the patient. The patient understands and agrees. MMODL / IJN: [id number] /
--- NOTE | 2022-10-24 18:12 | P.DS ---
Providers Date of admission: 10/22/22 20:54 Expected date of discharge: 10/23/22 Attending physician: Pedrito Roy Consults: 10/22/22 20:54 Consult Physician Urgent Consulting Provider: Serafin Chung Consult Reason/Comments: cp Do you want consulting provider notified?: Yes Primary care physician: Dorina Mckeon Hospital Course: Final diagnosis Chest pain, myocardial infarction ruled out, possible coronary artery disease and angina Hypertension, uncontrolled Hyperlipidemia History of myocardial infarction Discharge disposition Patient is being discharged in a stable condition with guarded prognosis to home . Patient will follow-up with Dr. Mckeon in the outpatient setting upon discharge. Patient is to follow up with her ultrasound spec Dr. Rosario and outpatient echo as scheduled. Total time taken is greater than 35 minutes. Hospital course This is a 61-year-old female who was recently admitted with hypertension and chest pain being closely monitored. Patient was seen and evaluated by cardiology recommending 2-D echo which is unavailable today and was instructed to follow-up with her ultrasound spec Dr. Morley at her scheduled appointment this week and have 2-D echo and further testing outpatient. Patient was hypertensive with uncontrolled blood pressure with the adjustments made by cardiology and has been cleared by cardio for discharge today. Patient instructed to keep her appointment with her ultrasound spec as well as primary care provider. Prescription provided on discharge. Please refer to cardiology notes for further HPI. Currently no reports of chest pain, shortness of breath, or palpitations. Patient is afebrile. No reports of nausea or vomiting and patient is tolerating diet. Patient will be discharged home today. Physical exam: Gen: This is a 61 year old female who was awake, alert and oriented 3, well- developed, well-nourished. HEENT: Head is atraumatic, normocephalic. Pupils equal, round. Sclerae is anicteric. NECK: Supple. No JVD. No lymphadenopathy. No thyromegaly. LUNGS: Clear to auscultation. No wheezes or rhonchi. No intercostal retractions. HEART: Regular rate and rhythm. No murmur. ABDOMEN: Soft. Bowel sounds are present. No masses. No tenderness. EXTREMITIES: No pedal edema. No calf tenderness. NEUROLOGICAL: Patient is awake, alert and oriented x3. Cranial nerves 2 through 12 are grossly intact. Please refer to medication reconciliation sheet for a list of medications. The impression and plan of care has been dictated by Rosa M Hughes, Nurse Practitioner as directed. Dr. Kirill MD I have performed a history and examination and MDM of this patient, discussed the same with the dictator, and agree with the dictator's assessment and plan as written ,documented as a scribe. Based on total visit time, I have performed more than 50% of the visit. Patient Condition at Discharge: Good Plan - Discharge Summary New Discharge Prescriptions: New hydrALAZINE HCL [Apresoline] 50 mg PO TID #90 tab Aspirin 81 mg PO DAILY #30 tab Nitroglycerin Sl Tabs [Nitrostat] 0.4 mg SUBLINGUAL Q5M PRN #30 tab PRN Reason: Chest Pain Acetaminophen Tab [Tylenol] 650 mg PO Q6HR PRN tab PRN Reason: Fever And/ Or Pain Continue Multivitamins, Thera [Multivitamin (formulary)] 1 tab PO DAILY Fish Oil/Dha/Epa [Fish Oil 1,200 mg Fish Oil] 1 cap PO DAILY LORazepam [Ativan] 1 mg PO DIRECTED PRN PRN Reason: Anxiety Isosorbide Mononitrate [Ismo] 10 mg PO BID Cholecalciferol [Vitamin D3 (25 Mcg = 1000 Iu)] 25 mcg PO DAILY Gabapentin [Neurontin] 300 mg PO DIRECTED Omeprazole [PriLOSEC] 20 mg PO DAILY Baclofen [Lioresal] 10 mg PO BID PRN PRN Reason: Muscle Spasm Famotidine [Pepcid] 20 mg PO DAILY PRN PRN Reason: Heartburn diphenhydrAMINE HCL [Benadryl] 25 mg PO HS Pravastatin Sodium [Pravachol] 10 mg PO HS carvediloL [Coreg] 25 mg PO BID Spironolactone [Aldactone] 25 mg PO DAILY Discontinued hydrALAZINE HCL [Apresoline] 25 - 50 mg PO BID Discharge Medication List Fish Oil/Dha/Epa [Fish Oil 1,200 mg Fish Oil] 1 cap PO DAILY 04/01/16 [History] Multivitamins, Thera [Multivitamin (formulary)] 1 tab PO DAILY 04/01/16 [History] LORazepam [Ativan] 1 mg PO DIRECTED PRN 11/11/18 [History] Isosorbide Mononitrate [Ismo] 10 mg PO BID 12/08/19 [History] Cholecalciferol [Vitamin D3 (25 Mcg = 1000 Iu)] 25 mcg PO DAILY 02/11/21 [History] Baclofen [Lioresal] 10 mg PO BID PRN 10/22/22 [History] Famotidine [Pepcid] 20 mg PO DAILY PRN 10/22/22 [History] Gabapentin [Neurontin] 300 mg PO DIRECTED 10/22/22 [History] Omeprazole [PriLOSEC] 20 mg PO DAILY 10/22/22 [History] Pravastatin Sodium [Pravachol] 10 mg PO HS 10/22/22 [History] Spironolactone [Aldactone] 25 mg PO DAILY 10/22/22 [History] carvediloL [Coreg] 25 mg PO BID 10/22/22 [History] diphenhydrAMINE HCL [Benadryl] 25 mg PO HS 10/22/22 [History] Acetaminophen Tab [Tylenol] 650 mg PO Q6HR PRN tab 10/23/22 [Rx] Aspirin 81 mg PO DAILY #30 tab 10/23/22 [Rx] Nitroglycerin Sl Tabs [Nitrostat] 0.4 mg SUBLINGUAL Q5M PRN #30 tab 10/23/22 [Rx] hydrALAZINE HCL [Apresoline] 50 mg PO TID #90 tab 10/23/22 [Rx] Follow up Appointment(s)/Referral(s): Dorina Mckeon MD [Primary Care Provider] - 1-2 days Georgie Rosario MD [REFERRING] - 10/31/22 10:30 am ( ) Patient Instructions/Handouts: Chest Pain (DC), Hypertension (ED) Activity/Diet/Wound Care/Special Instructions: Activity Limited until follow-up Follow-up with primary care provider on discharge Call your ultrasound spec tomorrow and follow-up this week in office Continue his medications as prescribed Discharge Disposition: HOME SELF-CARE
== END 2022-10-23 15:16 | disposition home or self-care (01) ==
LOC: EC 18:05 → 6NMEDSUR 20:54
PROVIDERS: ADMIT Hospitalist; ATTEND Hospitalist
DX: R07.89 Other chest pain (principal); I08.1 Rheumatic disorders of both mitral and tricuspid valves; I25.10 Atherosclerotic heart disease of native coronary artery without angina pectoris; I10 Essential (primary) hypertension; E78.5 Hyperlipidemia, unspecified; I25.2 Old myocardial infarction; K21.9 Gastro-esophageal reflux disease without esophagitis; M19.90 Unspecified osteoarthritis, unspecified site; K44.9 Diaphragmatic hernia without obstruction or gangrene; M50.322 Other cervical disc degeneration at C5-C6 level; F41.9 Anxiety disorder, unspecified; Z79.899 Other long term (current) drug therapy; Z88.1 Allergy status to other antibiotic agents; Z88.5 Allergy status to narcotic agent; Z88.8 Allergy status to other drugs, medicaments and biological substances; Z87.891 Personal history of nicotine dependence; Z90.49 Acquired absence of other specified parts of digestive tract; Z86.19 Personal history of other infectious and parasitic diseases; Z98.890 Other specified postprocedural states; Z82.49 Family history of ischemic heart disease and other diseases of the circulatory system
CPT/HCPCS: 99285; 36415; 93005; 85379; 83880; 80061; 80053; 83735; 84484 ×2; 85025; 85610; 85730; 71046; 71275; G0378 ×2; Q9967

== ENCOUNTER 2023-10-06 17:04 | Observation (INO) | payer OTHER ==
[2023-10-06 17:43] LABS: Basophils # (A) 0.1 k/uL (0-0.2); Basophils % (A) 1 %; Eosinophils # (A) 0.1 k/uL (0-0.7); Eosinophils % (A) 2 %; HCT 39.6 % (34.0-46.0); HGB 13.2 gm/dL (11.4-16.0); Lymphocytes # (A) 1.1 k/uL (1.0-4.8); Lymphocytes % (A) 25 %; MCH 33.3 pg (25.0-35.0); MCHC 33.2 g/dL (31.0-37.0); MCV 100.2 fL (80.0-100.0); Mean Platelet Volume 7.3; Monocytes # (A) 0.2 k/uL (0-1.0); Monocytes % (A) 5 %; Neutrophils # (A) 2.8 k/uL (1.3-7.7); Neutrophils % (A) 65 %; Platelet Count 288 k/uL (150-450); RBC 3.95 m/uL (3.80-5.40); RDW 12.3 % (11.5-15.5); WBC 4.3 k/uL (3.8-10.6)
--- NOTE | 2023-10-06 17:45 | XR ---
EXAMINATION TYPE: XR chest 2V DATE OF EXAM: 10/06/2023 5:39 PM CLINICAL INDICATION:Female, 62 years old with history of Chest Pain; [facility] COMPARISON: Chest radiographs from 10/22/2022 TECHNIQUE: XR chest 2V Frontal and lateral views of the chest. FINDINGS: Lungs/Pleura: There is flattening of the diaphragm with increased lucency of the lungs. No evidence o f pneumothorax, pleural effusion or focal consolidation. Pulmonary vascularity: Unremarkable. Heart/mediastinum: Cardiomediastinal silhouette is unremarkable. Musculoskeletal: No acute osseous pathology. IMPRESSION: 1. No acute cardiopulmonary disease process. 2. COPD changes.
[2023-10-06 17:58] LABS: ALT 29 U/L (4-34); AST 32 U/L (14-36); African American GFR (CKD) >90 (>60 ml/min/1.73 sqM); Albumin 4.6 g/dL (3.5-5.0); Alkaline Phosphatase 65 U/L (38-126); Anion Gap 8 mmol/L; Blood Urea Nitrogen 15 mg/dL (7-17); Calcium 9.9 mg/dL (8.4-10.2); Carbon Dioxide 23 mmol/L (22-30); Chloride 101 mmol/L (98-107); Glucose 109 mg/dL (74-99); Magnesium 1.7 mg/dL (1.6-2.3); Non-African American GFR(CKD) >90 (>60 ml/min/1.73 sqM); Potassium 4.1 mmol/L (3.5-5.1); Sodium 132 mmol/L (137-145); Total Bilirubin 0.9 mg/dL (0.2-1.3); Total Protein 7.3 g/dL (6.3-8.2)
[2023-10-06 18:03] LABS: Partial Thromboplastin Time 23.5 sec (22.0-30.0)
--- NOTE | 2023-10-06 19:20 | ED ---
Chest Pain HPI - General Chief Complaint: Chest Pain Stated Complaint: Chest pain,dizziness Time Seen by Provider: 10/06/23 18:12 Source: patient Mode of arrival: ambulatory Limitations: no limitations - History of Present Illness Initial Comments: 62-year-old female with past medical history of artery disease, hypertension, hyperlipidemia, mitral valve prolapse who presents emergency department with chest pain. States that the pain started somewhat last night but worsened today around 430. Describes it as a pressure sensation radiating to her bilateral jaws. She has a history of AR. Denies any stent placement. States that she was supposed to have cardiac testing in February however it never got done. She does not have any stents in her heart. Did not take anything for her chest pain as her nitro is . She denies fevers, chills or cough. No shortness of breath. No other alleviating, precipitating or modifying factors - Related Data Home Medications Medication Instructions Recorded Confirmed Fish Oil/Dha/Epa [Fish Oil 1,200 1 cap PO DAILY 04/01/16 10/22/22 mg Fish Oil] Multivitamins, Thera [Multivitamin 1 tab PO DAILY 04/01/16 10/22/22 (formulary)] LORazepam [Ativan] 1 mg PO DIRECTED PRN 11/11/18 10/22/22 Isosorbide Mononitrate [Ismo] 10 mg PO BID 12/08/19 10/22/22 Cholecalciferol [Vitamin D3 (25 25 mcg PO DAILY 02/11/21 10/22/22 Mcg = 1000 Iu)] Baclofen [Lioresal] 10 mg PO BID PRN 10/22/22 10/22/22 Famotidine [Pepcid] 20 mg PO DAILY PRN 10/22/22 10/22/22 Gabapentin [Neurontin] 300 mg PO DIRECTED 10/22/22 10/22/22 Omeprazole [PriLOSEC] 20 mg PO DAILY 10/22/22 10/22/22 Pravastatin Sodium [Pravachol] 10 mg PO HS 10/22/22 10/22/22 Spironolactone [Aldactone] 25 mg PO DAILY 10/22/22 10/22/22 carvediloL [Coreg] 25 mg PO BID 10/22/22 10/22/22 diphenhydrAMINE HCL [Benadryl] 25 mg PO HS 10/22/22 10/22/22 Previous Rx's Medication Instructions Recorded Acetaminophen Tab [Tylenol] 650 mg PO Q6HR PRN tab 10/23/22 Aspirin 81 mg PO DAILY #30 tab 10/23/22 Nitroglycerin Sl Tabs [Nitrostat] 0.4 mg SUBLINGUAL Q5M PRN #30 tab 10/23/22 hydrALAZINE HCL [Apresoline] 50 mg PO TID #90 tab 10/23/22 Allergies Allergy/AdvReac Type Severity Reaction Status Date / Time Macrolide Antibiotics Allergy Unknown Verified 10/06/23 17:17 nifedipine [From Procardia] Allergy Swelling Verified 10/06/23 17:17 legs ciprofloxacin [From Cipro] AdvReac Rapid Verified 10/06/23 17:17 Heart Rate morphine AdvReac Nausea & Verified 10/06/23 17:17 Vomiting prednisone AdvReac Rapid Verified 10/06/23 17:17 Heart Rate Review of Systems ROS Statement: Those systems with pertinent positive or pertinent negative responses have been documented in the HPI. ROS Other: All systems not noted in ROS Statement are negative. Past Medical History Past Medical History: Coronary Artery Disease (CAD), GERD/Reflux, Hyperlipidemia, Hypertension, Myocardial Infarction (AR), Mitral Valve Prolapse (MVP), Osteoarthritis (OA) Additional Past Medical History / Comment(s): hiatal hernia, H. Pylori in Sep 08 2018, bulging disc in C5/C6 Last Myocardial Infarction Date:: July 13 2018 History of Any Multi-Drug Resistant Organisms: None Reported Past Surgical History: Cholecystectomy, Heart Catheterization Additional Past Surgical History / Comment(s): laparoscopies, SKYLER (May 2016), heart cath with no stent 20% calcification in LAD in July 13, 2018 at [place]. Past Anesthesia/Blood Transfusion Reactions: No Reported Reaction, Family History of Problems w/ Anesthesia Additional Past Anesthesia/Blood Transfusion Reaction / Comment(s): mom has a hard time coming out Past Psychological History: Anxiety Smoking Status: Former smoker Past Alcohol Use History: None Reported Past Drug Use History: None Reported - Past Family History Mother Family Medical History: Hyperlipidemia, Hypertension Father Family Medical History: Mitral Valve Prolapse (MVP) Additional Family Medical History / Comment(s): brain bleed General Exam Limitations: no limitations General appearance: alert, in no apparent distress Head exam: Present: atraumatic, normocephalic, normal inspection Eye exam: Present: normal appearance, PERRL, EOMI. Absent: scleral icterus, conjunctival injection, periorbital swelling ENT exam: Present: normal exam, mucous membranes moist Neck exam: Present: normal inspection. Absent: tenderness, meningismus, lymphadenopathy Respiratory exam: Present: normal lung sounds bilaterally. Absent: respiratory distress, wheezes, rales, rhonchi, stridor Cardiovascular Exam: Present: regular rate, normal rhythm, normal heart sounds. Absent: systolic murmur, diastolic murmur, rubs, gallop, clicks GI/Abdominal exam: Present: soft, normal bowel sounds. Absent: distended, tenderness, guarding, rebound, rigid Extremities exam: Present: normal inspection, full ROM, normal capillary refill. Absent: tenderness, pedal edema, joint swelling, calf tenderness Back exam: Present: normal inspection Neurological exam: Present: alert, oriented X3, CN II-XII intact Psychiatric exam: Present: normal affect, normal mood Skin exam: Present: warm, dry, intact, normal color. Absent: rash Course Vital Signs 10/06/23 10/06/23 17:15 19:00 Temperature 98.6 F Pulse Rate 92 67 Respiratory 17 16 Rate Blood Pressure 190/117 160/96 O2 Sat by Pulse 99 98 Oximetry Chest Pain MDM - MDM Was pt. sent in by a medical professional or institution (JANEY Velasco, SOFTWARE ENGINEERING SUPERVISOR, urgent care, hospital, or retirement...) When possible be specific @ -[No] Did you speak to anyone other than the patient for history (EMS, parent, family, police, friend...)? What history was obtained from this source @ -[No] Did you review nursing and triage notes (agree or disagree)? Why? @ -[I reviewed and agree with nursing and triage notes] Were old charts reviewed (outside hosp., previous admission, EMS record, old EKG, old radiological studies, urgent care reports/EKG's, retirement records)? Report findings @ -[No old charts were reviewed] Differential Diagnosis (chest pain, altered mental status, abdominal pain women, abdominal pain men, vaginal bleeding, weakness, fever, dyspnea, syncope, headache, dizziness, GI bleed, back pain, seizure, CVA, palpatations, mental health, musculoskeletal)? @ -[not applicable] EKG interpreted by me (3pts min.). @ -yes and demonstrates sinus rhythm with a rate of 87. MS interval 175. QRS 100. QTc of 400. No acute ST segment elevations. Mild ST depression V2 through V6 X-rays interpreted by me (1pt min.). @ -[None done] CT interpreted by me (1pt min.). @ -[None done] U/S interpreted by me (1pt. min.). @ -[None done] What testing was considered but not performed or refused? (CT, X-rays, U/S, labs)? Why? @ -[None] What meds were considered but not given or refused? Why? @ -[None] Did you discuss the management of the patient with other professionals (professionals i.e. , PA, SOFTWARE ENGINEERING SUPERVISOR, lab, RT, psych nurse, director social, lab aid, teacher, fisheries technical officer, insurance case manager)? Give summary @ -[No] Was smoking cessation discussed for >3mins.? @ -[No] Was critical care preformed (if so, how long)? @ -[No] Were there social determinants of health that impacted care today? How? (Homelessness, low income, unemployed, alcoholism, drug addiction, transportation, low edu. Level, literacy, decrease access to med. care, fci, rehab)? @ -[No] Was there de-escalation of care discussed even if they declined (Discuss DNR or withdrawal of care, Hospice)? DNR status @ -[No] What co-morbidities impacted this encounter? (DM, HTN, Smoking, COPD, CAD, Cancer, CVA, ARF, Chemo, Hep., AIDS, mental health diagnosis, sleep apnea, morbid obesity)? @ -[None] Was patient admitted / discharged? Hospital course, mention meds given and route, prescriptions, significant lab abnormalities, going to OR and other pertinent info. @ -[hospital course] Undiagnosed new problem with uncertain prognosis? @ -[No] Drug Therapy requiring intensive monitoring for toxicity (Heparin, Nitro, Insulin, Cardizem)? @ -[No] Were any procedures done? @ -[No] Diagnosis/symptom? @ -[default] Acute, or Chronic, or Acute on Chronic? @ -[default] Uncomplicated (without systemic symptoms) or Complicated (systemic symptoms)? @ -[default] Side effects of treatment? @ -[No] Exacerbation, Progression, or Severe Exacerbation? @ -[No] Poses a threat to life or bodily function? How? (Chest pain, USA, AR, pneumonia, PE, COPD, DKA, ARF, appy, cholecystitis, CVA, Diverticulitis, Homicidal, Suicidal, threat to staff... and all critical care pts) @ -[No] Disposition Clinical Impression: Chest pain Disposition: ADMITTED IP TO THIS [facility] Condition: Stable Is patient prescribed a controlled substance at d/c from ED?: No Referrals: Dorina Mckeon MD [Primary Care Provider] - 1-2 days Time of Disposition: 19:24 Decision to Admit Reason: Admit from EC Decision Date: 10/06/23 Decision Time: 19:24
[2023-10-06] MEDS ORDERED: NALOXONE 0.4 MG/ML 1 ML VIAL IV PRN (19:24)
[2023-10-06] MEDS: ACETAMINOPHEN TAB 500 MG TAB PO STA (20:55)
[2023-10-06] MEDS: NITROGLYCERIN SL TABS 0.4 MG TAB SUBLINGUAL STA (20:56)
[2023-10-06] MEDS: ASPIRIN 81 MG PO STA (20:56)
[2023-10-06] MEDS ORDERED: FAMOTIDINE 20 MG TAB PO PRN (21:46)
[2023-10-06] MEDS ORDERED: BACLOFEN 10 MG TAB PO PRN (21:46)
[2023-10-06] MEDS: lisinopriL 5 MG TAB PO SCH (22:00)
[2023-10-06] MEDS: ISOSORBIDE MONONITRATE 10 MG TAB PO SCH (22:00)
[2023-10-06] MEDS: PRAVASTATIN SODIUM 20 MG TAB PO SCH (22:00)
[2023-10-06] MEDS: MULTIVITAMINS, THERA 1 EACH TAB PO SCH (22:00)
[2023-10-06] MEDS: carvediloL 12.5 MG TAB PO SCH (22:00)
[2023-10-07] MEDS: PANTOPRAZOLE 40 MG TABLET PO SCH (02:26)
[2023-10-07] MEDS: diphenhydrAMINE 25 MG CAP PO SCH (02:54)
[2023-10-07] MEDS ORDERED: NON FORMULARY DRUG (Fish Oil/Dha/Epa [Fish Oil 1,200 Mg Fish Oil] 1 EACH Capsule) PO SCH (09:00)
[2023-10-07] MEDS: ISOSORBIDE MONONITRATE 10 MG TAB PO SCH (09:09)
[2023-10-07 10:25] LABS: HCT 33.5 % (37.2-46.3); HGB 11.3 g/dL (12.0-15.0); MCH 32.9 pg (27.0-32.0); MCHC 33.7 g/dL (32.0-37.0); MCV 97.7 FL (80.0-97.0); Mean Platelet Volume 9.2 FL (9.5-12.2); NRBC Per 100 WBC 0 X 10*3/uL (0.00-0.01); Platelet Count 216 X 10*3/uL (140-440); RBC 3.43 X 10*6/uL (4.10-5.20); RDW 12.3 % (11.5-14.5)
[2023-10-07 10:36] LABS: BUN/Creat Ratio 17.71 Ratio (12.00-20.00); Blood Urea Nitrogen 12.4 mg/dL (9.0-27.0); Chloride 105 mmol/L (96-109); Glucose 100 mg/dL (70-110); Potassium 4.5 mmol/L (3.5-5.5); Sodium 140 mmol/L (135-145)
[2023-10-07 11:23] LABS: Basophils # (A) 0.04 X 10*3/uL (0.00-0.10); Basophils % (A) 1.3 %; Eosinophils # (A) 0.06 X 10*3/uL (0.04-0.35); Eosinophils % (A) 1.9 %; Immature Grans, Automated 0 %; Lymphocytes # (A) 1.75 X 10*3/uL (0.90-5.00); Lymphocytes % (A) 56.5 %; Monocytes # (A) 0.36 X 10*3/uL (0.20-1.00); Monocytes % (A) 11.6 %; Neutrophils # (A) 0.89 X 10*3/uL (1.80-7.70); Neutrophils % (A) 28.7 %; RBC Morphology Normal (Normal)
--- NOTE | 2023-10-07 11:45 | P.CRDCN ---
History of Present Illness Consult date: 10/07/23 Reason for Consult (text): Acute chest pain History of present illness: This is a 62-year-old female patient of Dr. Rosario with past medical history of hypertension, dyslipidemia, moderate mitral regurgitation, NE in 2019, remote history of tobacco use. We have been asked to evaluate the patient for acute chest pain. Patient gives history of developing chest pain along with lightheadedness but not feeling like she was going to pass out. She states her blood pressure has been extremely high. She also complains of pain going into her upper chest, neck and jaw. She has a different type of pain on the right lateral neck area that she had all day yesterday. She states she has not had any episodes of chest pain and has been on the current regime for over a year. She knows she had an echocardiogram and stress done with Dr. Roasrio in 2021. Patient was a smoker and quit in 2006. Blood pressure 130/72, heart rate 75, pulse ox 96% on room air. Patient is seen today in the emergency center waiting for bed on the observation unit. EKG: Normal sinus rhythm Chest x-ray: COPD. No acute process. Laboratory studies: WBC 3.1, hemoglobin 11.3, platelet count 216. Electrolytes are normal. Creatinine 0.7. Troponin negative x 3. Magnesium 1.7. Home cardiac medications: Coreg 12.5 mg twice daily, fish oil 1 daily, Ismo 10 mg twice daily, lisinopril 5 mg twice daily, Nitrostat as needed, pravastatin 20 mg at bedtime. Cardiac catheterization 2015 showed mild nonobstructive CAD Echocardiogram in March 2016 showed normal LV function with evidence of mitral valve prolapse and moderate to severe MR. SKYLER May 2016 showed moderate MR and TR with normal LVEF Review Of Systems: At the time of my exam: CONSTITUTIONAL: Denies fever or chills. HEENT: Denies blurred vision, vision changes, or eye pain. Denies hemoptysis CARDIOVASCULAR: Denies chest pain. Denies orthopnea. Denies PND. Denies palpitations RESPIRATORY: Denies shortness of breath. GASTROINTESTINAL: Denies abdominal pain. Denies nausea or vomiting. HEMATOLOGIC: Denies bleeding disorders. GENITOURINARY: Denies any blood in urine. SKIN: Denies puritis. Denies rash. Physical examination: Gen: This is a 62-year-old female in no acute distress VS: reviewed HEENT: Head is atraumatic, normocephalic. Pupils equal, round. Sclerae is anicteric. NECK: Supple. No JVD. LUNGS: Clear to auscultation. No wheezes or rhonchi. No intercostal retractions. HEART: Regular rate and rhythm. No murmur. ABDOMEN: Soft No tenderness. EXTREMITIES: No pedal edema. No calf tenderness. NEUROLOGICAL: Patient is awake, alert and oriented x3. Assessment: Atypical chest pain, acute coronary syndrome ruled out with negative troponins Hypertension Dyslipidemia Moderate mitral regurgitation Remote history of tobacco use Plan: Resume patient's home cardiac medications with the following change Increase Ismo to 15 mg twice daily Obtain 2-D echocardiogram and Doppler study to assess cardiac structure and function Further recommendations to follow based upon clinical course Thank you kindly for this consultation. Nurse practitioner note has been reviewed, I agree with documented findings and plan of care. Patient was seen and examined. Past Medical History Past Medical History: Coronary Artery Disease (CAD), GERD/Reflux, Hyperlipidemia, Hypertension, Myocardial Infarction (NE), Mitral Valve Prolapse (MVP), Osteoarthritis (OA) Additional Past Medical History / Comment(s): hiatal hernia, H. Pylori in Sep 08 2018, bulging disc in C5/C6 Last Myocardial Infarction Date:: July 13 2018 History of Any Multi-Drug Resistant Organisms: None Reported Past Surgical History: Cholecystectomy, Heart Catheterization Additional Past Surgical History / Comment(s): laparoscopies, SKYLER (May 2016), heart cath with no stent 20% calcification in LAD in July 13, 2018 at [place]. Past Anesthesia/Blood Transfusion Reactions: No Reported Reaction, Family History of Problems w/ Anesthesia Additional Past Anesthesia/Blood Transfusion Reaction / Comment(s): mom has a hard time coming out Past Psychological History: Anxiety Smoking Status: Former smoker Past Alcohol Use History: None Reported Past Drug Use History: None Reported - Past Family History Mother Family Medical History: Hyperlipidemia, Hypertension Father Family Medical History: Mitral Valve Prolapse (MVP) Additional Family Medical History / Comment(s): brain bleed Medications and Allergies Home Medications Medication Instructions Recorded Confirmed Type Fish Oil/Dha/Epa [Fish Oil 1,200 1 cap PO DAILY 04/01/16 10/06/23 History mg Fish Oil] Multivitamins, Thera [Multivitamin 1 tab PO DAILY 04/01/16 10/06/23 History (formulary)] Isosorbide Mononitrate [Ismo] 10 mg PO BID 12/08/19 10/06/23 History Cholecalciferol [Vitamin D3 (25 25 mcg PO DAILY 02/11/21 10/06/23 History Mcg = 1000 Iu)] Baclofen [Lioresal] 10 mg PO BID PRN 10/22/22 10/06/23 History Famotidine [Pepcid] 20 mg PO DAILY PRN 10/22/22 10/06/23 History Omeprazole [PriLOSEC] 20 mg PO BID 10/22/22 10/06/23 History diphenhydrAMINE HCL [Benadryl] 25 mg PO HS 10/22/22 10/06/23 History Nitroglycerin Sl Tabs [Nitrostat] 0.4 mg SUBLINGUAL Q5M PRN #30 tab 10/23/22 10/06/23 Rx Pravastatin Sodium [Pravachol] 20 mg PO HS 10/06/23 10/06/23 History carvediloL [Coreg] 12.5 mg PO BID 10/06/23 10/06/23 History lisinopriL [Zestril] 5 mg PO BID 10/06/23 10/06/23 History Allergies Allergy/AdvReac Type Severity Reaction Status Date / Time nifedipine [From Procardia] Allergy Swelling Verified 10/06/23 20:15 in legs ciprofloxacin [From Cipro] AdvReac Rapid Verified 10/06/23 20:15 Heart Rate Macrolide Antibiotics AdvReac Blood Verified 10/06/23 20:15 pressure spikes morphine AdvReac Nausea & Verified 10/06/23 20:15 Vomiting prednisone AdvReac Rapid Verified 10/06/23 20:15 Heart Rate Physical Exam Vitals: Vital Signs Temp Pulse Pulse Resp BP Pulse Ox 10/07/23 08:00 98.5 F 67 17 130/72 97 10/07/23 05:30 71 18 146/72 94 L 10/07/23 03:00 72 16 150/84 98 10/07/23 01:00 74 16 151/95 98 10/06/23 22:00 70 18 10/06/23 21:11 75 10/06/23 21:10 20 10/06/23 21:00 72 18 151/95 98 10/06/23 20:00 69 20 160/91 95 10/06/23 19:00 67 16 160/96 98 10/06/23 17:15 98.6 F 92 17 190/117 99 Intake and Output 10/06/23 10/07/23 10/07/23 22:59 06:59 14:59 Other: Weight 68.039 kg Results 10/07/23 06:53 10/07/23 06:53 Cardiac Enzymes 10/06/23 10/06/23 10/06/23 Range/Units 17:37 17:37 21:00 AST 32 (14-36) U/L Troponin I <0.012 <0.012 (0.000-0.034) ng/mL 10/07/23 Range/Units 00:26 AST (14-36) U/L Troponin I <0.012 (0.000-0.034) ng/mL Coagulation 10/06/23 Range/Units 17:37 PT 11.0 (10.0-12.5) sec APTT 23.5 (22.0-30.0) sec CBC 10/06/23 Range/Units 17:37 WBC 4.3 (3.8-10.6) k/uL RBC 3.95 (3.80-5.40) m/uL Hgb 13.2 (11.4-16.0) gm/dL Hct 39.6 (34.0-46.0) % Plt Count 288 (150-450) k/uL Comprehensive Metabolic Panel 10/06/23 Range/Units 17:37 Sodium 132 L (137-145) mmol/L Potassium 4.1 (3.5-5.1) mmol/L Chloride 101 (98-107) mmol/L Carbon Dioxide 23 (22-30) mmol/L BUN 15 (7-17) mg/dL Creatinine 0.62 (0.52-1.04) mg/dL Glucose 109 H (74-99) mg/dL Calcium 9.9 (8.4-10.2) mg/dL AST 32 (14-36) U/L ALT 29 (4-34) U/L Alkaline Phosphatase 65 (38-126) U/L Total Protein 7.3 (6.3-8.2) g/dL Albumin 4.6 (3.5-5.0) g/dL Current Medications Generic Name Dose Route Start Last Admin Trade Name Adelia PRN Reason Stop Dose Admin Baclofen 10 mg 10/06/23 21:46 Baclofen 10 Mg Tab PO BID PRN Muscle Spasm Carvedilol 12.5 mg 10/06/23 22:00 10/06/23 22:00 Carvedilol 12.5 Mg Tab PO Not Given BID-W/MEALS CARMELITA Diphenhydramine HCl 25 mg 10/06/23 22:00 10/07/23 02:54 Diphenhydramine 25 Mg Cap PO 25 mg HS CARMELITA Administration Famotidine 20 mg 10/06/23 21:46 Famotidine 20 Mg Tab PO DAILY PRN Heartburn Isosorbide Mononitrate 10 mg 10/06/23 22:15 10/06/23 22:00 Isosorbide Mononitrate 10 Mg Tab PO Not Given BID CARMELITA Lisinopril 5 mg 10/06/23 22:15 10/06/23 22:00 Lisinopril 5 Mg Tab PO Not Given BID [facility] Multivitamins 1 each 10/06/23 22:00 10/06/23 22:00 Multivitamins, Thera 1 Each Tab PO Not Given DAILY CARMELITA Naloxone HCl 0.2 mg 10/06/23 19:24 Naloxone 0.4 Mg/Ml 1 Ml Vial IV Q2M PRN Opioid Reversal Pantoprazole Sodium 40 mg 10/06/23 22:15 10/07/23 02:26 Pantoprazole 40 Mg Tablet PO Not Given AC-BRKFST CARMELITA Pravastatin Sodium 20 mg 10/06/23 22:00 10/06/23 22:00 Pravastatin Sodium 20 Mg Tab PO Not Given HS CARMELITA Intake and Output 10/06/23 10/07/23 10/07/23 22:59 06:59 14:59 Other: Weight 68.039 kg 10/06/23 17:37 10/06/23 17:37
--- NOTE | 2023-10-07 13:09 | HP ---
HISTORY AND PHYSICAL CHIEF COMPLAINTS: Chest pain, dizziness. HISTORY OF PRESENT ILLNESS: This 62-year-old woman with past medical history of multiple medical problems including CAD, hypertension, hyperlipidemia, is complaining of anterior chest pain and some pain radiating to the neck and jaws, especially on ambulation. The patient apparently had history of myocardial infarction, the troponins are negative. EKG which I reviewed personally showed no acute changes. Cardiology evaluation in progress. The patient apparently had a stress test in 2021. The patient also had moderate mitral regurgitation. There is no history of any fever, rigors, or chills. PAST MEDICAL HISTORY: History of CAD, hypertension, hyperlipidemia, rest of the history and chart is also reviewed. HOME MEDICATIONS: Reviewed include Zestril, dose and rest of medications reviewed. ALLERGIES: Reviewed include nifedipine. FAMILY HISTORY: History of hypertension, hyperlipidemia, history of brain SOCIAL HISTORY: Previous history of smoking, several years. REVIEW OF SYSTEMS: A 14-point review is negative except as mentioned earlier. PHYSICAL EXAMINATION: VITAL SIGNS: Pulse is 67, blood pressure 130/72, respirations 17. HEENT: Conjunctivae normal. NECK: No jugular venous distention. CARDIOVASCULAR: S1, S2 muffled. RESPIRATIONS: Diminished at the basis. ABDOMEN: Soft, nontender. LEGS: No edema, no swelling. NERVOUS SYSTEM: No focal deficit. SKIN: No ulcer, rash, bleeding. JOINTS: No active deforming arthropathy. LABORATORY DATA: WBC 3.9, hemoglobin 11.3, sodium 132. ASSESSMENT: 1. Chest pain, possible unstable angina. 2. Dizziness. 3. History of CAD. 4. Hypertension. 5. Hyperlipidemia. 6. History of mitral valve prolapse with moderate mitral regurgitation. 7. History of hiatal hernia. RECOMMENDATIONS AND DISCUSSION: This 62-year-old woman presented with multiple complex medical issues, we will monitor the patient closely. Continue the current medications, continue symptomatic treatment. Rule out myocardial infarction. Cardiology has ordered 2D echo. The patient might require further testing if the patient continues to be asymptomatic. The patient had a catheter in 2019 [place], showed 20% calcification apparently and no stenting. Prognosis guarded. MMODL / IJN: [id number] / [facility]
[2023-10-08 07:41] VITALS: RESP 16
[2023-10-08 08:53] LABS: Blood Urea Nitrogen 11.9 mg/dL (9.0-27.0); Calcium 9.8 mg/dL (8.7-10.3); Carbon Dioxide 22.9 mmol/L (21.6-31.8); Chloride 106 mmol/L (96-109); Glucose 114 mg/dL (70-110); Potassium 4.5 mmol/L (3.5-5.5); Sodium 139 mmol/L (135-145)
--- NOTE | 2023-10-08 09:18 | US ---
EXAMINATION TYPE: US carotid duplex BILAT DATE OF EXAM: 10/08/2023 COMPARISON: NONE CLINICAL INDICATION: Female, 62 years old with history of dizziness, known JAMI; dizziness TECHNIQUE: Carotid duplex ultrasound examination. Indirect Doppler criteria was utilized. FINDINGS: EXAM MEASUREMENTS: RIGHT: Peak Systolic Velocity (PSV) cm/sec ----- Right CCA: 105 ----- Right ICA: 125 ----- Right ECA: 77.3 ICA/CCA ratio: 1.2 RIGHT: End Diastole cm/sec ----- Right CCA: 34.4 ----- Right ICA: 39.6 ----- Right ECA: 8.45 LEFT: Peak Systolic Velocity (PSV) cm/sec ----- Left CCA: 109 ----- Left ICA: 118 ----- Left ECA: 59.3 ICA/CCA ratio: 1.1 LEFT: End Diastole cm/sec ----- Left CCA: 33.1 ----- Left ICA: 51.3 ----- Left ECA: 0 VERTEBRALS (direction of flow): Right Vertebral: Antegrade Left Vertebral: Antegrade Rhythm: Normal SAWMILL MANAGER NOTES: No significant stenosis seen IMPRESSION: 1. Borderline 50-69% stenosis of the right carotid bifurcation by peak systolic velocity. 2. Less than 50% stenosis of the left carotid bifurcation. Criteria for Assigning % of Stenosis / Diameter reduction (Estimation based on the indirect measurements of the internal carotid artery velocities (ICA PSV). 1. Normal (no stenosis)=ICA PSV < 125 cm/s: ratio < 2.0: ICA EDV<40 cm/s. 2. Less than 50% stenosis=ICA PSV < 125 cm/s: ratio < 2.0: ICA EDV<40 cm/s. 3. 50 to 69% stenosis=ICA PSV of 125 to 230 cm/s: ration 2.0 ? 4.0: ICA EDV 40-100 cm/s. 4. Greater than 70% stenosis to near occlusion= ICA PSV > 230 cm/s: ratio > 4.0: ICA EDV > 100 cm/s. 5. Near occlusion= ICA PSV velocities may be low or undetectable: variable ratio and ICA EDV. 6. Total occlusion=unable to detect flow.
[2023-10-08 09:27] LABS: Basophils # (A) 0.04 X 10*3/uL (0.00-0.10); Basophils % (A) 1.1 %; Eosinophils # (A) 0.07 X 10*3/uL (0.04-0.35); HCT 34.6 % (37.2-46.3); HGB 11.9 g/dL (12.0-15.0); Lymphocytes # (A) 1.83 X 10*3/uL (0.90-5.00); Lymphocytes % (A) 51.5 %; MCH 34.2 pg (27.0-32.0); MCHC 34.4 g/dL (32.0-37.0); MCV 99.4 FL (80.0-97.0); Mean Platelet Volume 9.8 FL (9.5-12.2); Monocytes # (A) 0.35 X 10*3/uL (0.20-1.00); Monocytes % (A) 9.9 %; NRBC Per 100 WBC 0 X 10*3/uL (0.00-0.01); Neutrophils # (A) 1.25 X 10*3/uL (1.80-7.70); Neutrophils % (A) 35.2 %; Platelet Count 239 X 10*3/uL (140-440); RBC 3.48 X 10*6/uL (4.10-5.20); RDW 12.2 % (11.5-14.5); WBC 3.55 X 10*3/uL (4.50-10.00)
--- NOTE | 2023-10-08 11:32 | CA ---
Transthoracic Echo Report Name: Elizabeth Randolph Age: 62 Gender: F : 1960 Exam Date: 10/07/2023 13:39 Exam Location: [facility] Ht (in): 68 Wt (lb): 150 Ordering Physician: Ema Corral Attending/Referring Phys: [id number], Shayna Ticket Agent Elizabeth Solis RDCS Procedure CPT: Indications: LVF Cardiac Hx: Technical Quality: Good Contrast 1: Total Dose (mL): Contrast 2: Total Dose (mL): MEASUREMENTS (Male / Female) Normal Values 2D ECHO LV Diastolic Diameter PLAX 4.7 cm 4.2 - 5.9 / 3.9 - 5.3 cm LV Systolic Diameter PLAX 3.0 cm IVS Diastolic Thickness 0.8 cm 0.6 - 1.0 / 0.6 - 0.9 cm LVPW Diastolic Thickness 0.9 cm 0.6 - 1.0 / 0.6 - 0.9 cm LV Relative Wall Thickness 0.4 LVOT Diameter 2.1 cm LV Diastolic Volume MOD BP 94.1 cm??? 67 - 155 / 56 - 104 cm??? LV Systolic Volume MOD BP 28.2 cm??? 22 - 58 / 19 - 49 cm??? LV Ejection Fraction MOD BP 70.0 % >= 55 % LV Cardiac Index MOD BP 2183.6 cm???/min???m??? LV Diastolic Volume MOD 4C 90.2 cm??? LV Systolic Volume MOD 4C 27.9 cm??? LV Ejection Fraction MOD 4C 69.1 % LV Cardiac Index MOD 4C 2066.6 cm???/min???m??? LV Diastolic Length 4C 7.2 cm LV Systolic Length 4C 5.8 cm LV Diastolic Volume MOD 2C 89.2 cm??? LV Systolic Volume MOD 2C 26.8 cm??? LV Ejection Fraction MOD 2C 70.0 % LV Cardiac Index MOD 2C 2070.8 cm???/min???m??? LV Diastolic Length 2C 8.0 cm LV Systolic Length 2C 6.3 cm LA Volume 64.1 cm??? 18 - 58 / 22 - 52 cm??? LA Volume Index 35.4 cm???/m??? 16 - 28 cm???/m??? Ascending Aorta Diameter 3.3 cm DOPPLER AV Peak Velocity 139.9 cm/s AV Peak Gradient 7.8 mmHg AV Mean Velocity 92.0 cm/s AV Mean Gradient 3.8 mmHg AV Velocity Time Integral 29.9 cm LVOT Peak Velocity 121.2 cm/s LVOT Peak Gradient 5.9 mmHg LVOT Velocity Time Integral 25.4 cm LVOT Stroke Volume 86.5 cm??? LVOT Stroke Volume Index 47.8 ml/m??? LVOT Cardiac Index 2869.0 cm???/min???m??? AV Area Cont Eq vti 2.9 cm??? AV Area Cont Eq pk 2.9 cm??? MV Area PHT 3.4 cm??? Mitral E Point Velocity 62.0 cm/s Mitral A Point Velocity 61.1 cm/s Mitral E to A Ratio 1.0 MV Deceleration Time 223.2 ms TR Peak Velocity 207.3 cm/s TR Peak Gradient 17.2 mmHg Right Atrial Pressure 5.0 mmHg Pulmonary Artery Systolic Pressu 22.2 mmHg Right Ventricular Systolic Press 22.2 mmHg PV Peak Velocity 71.8 cm/s PV Peak Gradient 2.1 mmHg FINDINGS Left Ventricle Left ventricular ejection fraction is estimated at 65 %. Left ventricular cavity size normal. Left ventricular wall thickness normal. No obvious regional wall motion abnormalities. Right Ventricle Normal right ventricular size and function. Right ventricular systolic pressure within normal limits. Right Atrium Normal right atrial size. Left Atrium Mildly increased left atrial area. Mitral Valve Structurally normal mitral valve. No evidence for mitral valve prolapse. No mitral stenosis. Trace mitral regurgitation. Aortic Valve Trileaflet aortic valve. No aortic valve stenosis or regurgitation. Tricuspid Valve Structurally normal tricuspid valve. No tricuspid stenosis. Trace tricuspid regurgitation. Pulmonic Valve Structurally normal pulmonic valve. No pulmonic stenosis. Trace pulmonic regurgitation. Pericardium No pericardial effusion. Aorta Normal size aortic root and proximal ascending aorta. CONCLUSIONS LVEF 60 to 65% Normal LV cavity size and wall thickness No obvious regional wall motion abnormalities. Normal RV size and systolic function Mild LA dilatation No significant valvular dsyfunction Previewed by: Dr Scotty Duval (Electronically Signed) Final Date: 08 October 2023 11:31
--- NOTE | 2023-10-08 11:34 | P.PN ---
Subjective Progress Note Date: 10/08/23 Reason for Consult (text): Acute chest pain History of present illness: This is a 62-year-old female patient of Dr. Rosario with past medical history of hypertension, dyslipidemia, moderate mitral regurgitation, [place] in 2018, remote history of tobacco use. We have been asked to evaluate the patient for acute chest pain. Patient gives history of developing chest pain along with lightheadedness but not feeling like she was going to pass out. She states her blood pressure has been extremely high. She also complains of pain going into her upper chest, neck and jaw. She has a different type of pain on the right lateral neck area that she had all day yesterday. She states she has not had any episodes of chest pain and has been on the current regime for over a year. She knows she had an echocardiogram and stress done with Dr. Rosario in 2021. Bertrand choi was a smoker and quit in 2006. Blood pressure 130/72, heart rate 75, pulse ox 96% on room air. Patient is seen today in the emergency center waiting for bed on the observation unit. EKG: Normal sinus rhythm Chest x-ray: COPD. No acute process. Laboratory studies: WBC 3.1, hemoglobin 11.3, platelet count 216. Electrolytes are normal. Creatinine 0.7. Troponin negative x 3. Magnesium 1.7. Home cardiac medications: Coreg 12.5 mg twice daily, fish oil 1 daily, Ismo 10 mg twice daily, lisinopril 5 mg twice daily, Nitrostat as needed, pravastatin 20 mg at bedtime. Cardiac catheterization 2015 showed mild nonobstructive CAD Echocardiogram in March 2016 showed normal LV function with evidence of mitral valve prolapse and moderate to severe MR. SKYLER May 2016 showed moderate MR and TR with normal LVEF 10/07 Patient is seen today in follow-up on the observation unit. She denies having any chest pain. No dizziness or any other symptoms. Blood pressure 99/61, heart rate 60, pulse ox 96% on room air. Repeat blood work reveals hemoglobin 11.9. Electrolytes are normal. Creatinine 0.7. Echocardiogram reveals EF 60 to 65%. Mild LA dilatation. No significant valvular dysfunction. Carotid duplex reveals borderline 50-69% stenosis of the right carotid bifurcation. Less than 50% on the left carotid bifurcation. Physical examination: Gen: This is a 62-year-old female in no acute distress VS: reviewed HEENT: Head is atraumatic, normocephalic. Pupils equal, round. Sclerae is anicteric. NECK: Supple. No JVD. LUNGS: Clear to auscultation. No wheezes or rhonchi. No intercostal retractions. HEART: Regular rate and rhythm. No murmur. ABDOMEN: Soft No tenderness. EXTREMITIES: No pedal edema. No calf tenderness. NEUROLOGICAL: Patient is awake, alert and oriented x3. Assessment: Atypical chest pain, acute coronary syndrome ruled out with negative troponins Hypertension Dyslipidemia Moderate mitral regurgitation Remote history of tobacco use Plan: Continue patient's home cardiac medications with the following change Continue increased dose of Ismo 15 mg twice daily Patient is cleared for discharge from cardiology and may follow-up with Dr Rosario in 1 to 2 weeks. Nurse practitioner note has been reviewed, I agree with documented findings and plan of care. Patient was seen and examined. Objective - Vital Signs Vital signs: Vital Signs Temp 97.6 F 10/08/23 07:05 Pulse 60 10/08/23 07:05 Resp 16 10/08/23 07:05 BP 99/61 10/08/23 07:05 Pulse Ox 96 10/08/23 07:05 FiO2 Intake & Output 10/07/23 10/08/23 10/08/23 18:59 06:59 18:59 Intake Total 120 Balance 120 Intake: Oral 120 Other: # Voids 1 2 - Labs CBC & Chem 7: 10/08/23 06:13 10/08/23 06:13 Labs: Abnormal Lab Results - Last 24 Hours (Table) 10/07/23 Range/Units 06:53 WBC 3.10 L (4.50-10.00) X 10*3/uL RBC 3.43 L (4.10-5.20) X 10*6/uL Hgb 11.3 L (12.0-15.0) g/dL Hct 33.5 L (37.2-46.3) % MCV 97.7 H (80.0-97.0) FL MCH 32.9 H (27.0-32.0) pg MPV 9.2 L (9.5-12.2) FL Neutrophils # 0.89 L (1.80-7.70) X 10*3/uL
--- NOTE | 2023-10-08 13:19 | CT ---
EXAMINATION TYPE: CT chest angio for PE DATE OF EXAM: 10/08/2023 COMPARISON: 10/22/2022 and radiograph 10/06/2023 HISTORY: 62 year-old female chest pain, shortness of breath, rule out PE TECHNIQUE: Contiguous axial scanning of the chest performed with IV Contrast, patient injected with 8 0 mL of Isovue 370. Coronal and sagittal MIP reconstructions performed. CT DLP: 475 mGycm Automated exposure control for dose reduction was used. FINDINGS: Heart normal size with trace anterior pericardial effusion. LAD and RCA coronary calcifications are p resent. Aorta normal caliber with mild atherosclerotic arch calcifications and conventional arch vessel branc vanessa anatomy. No thoracic lymphadenopathy by CT size criteria. Satisfactory opacification of the pulmonary arterial system. No evidence for pulmonary embolus. Mild centrilobular and paraseptal emphysema especially in the upper lungs. Minimal subpleural reticul ar change at the lower lungs, possible mild fibrosis. No consolidation or pleural effusion. Visualized upper abdomen with a 2.2 cm cortical cyst upper pole right kidney. Cholecystectomy clips. Bones: Mild to moderate degenerative disc disease anteriorly within the mid thoracic spine. IMPRESSION: 1. NO EVIDENCE FOR PULMONARY EMBOLUS OR ACUTE PULMONARY PROCESS. 2. LAD AND RCA CORONARY ARTERY CALCIFICATIONS. 3. COPD WITH MILD EMPHYSEMA. THERE MAY BE MINIMAL INTERSTITIAL FIBROSIS AT THE LOWER LUNGS WELL.
[2023-10-08 15:44] VITALS: BP 94/60; PULSE 67; TEMP 98.6
--- NOTE | 2023-10-10 10:08 | P.DS ---
Providers Date of admission: 10/06/23 19:27 Expected date of discharge: 10/08/23 Attending physician: Pedrito Roy Consults: 10/06/23 19:24 Consult Physician Urgent Consulting Provider: [facility] Consult Reason/Comments: acute chest pain Do you want consulting provider notified?: Yes Primary care physician: Dorina Mckeon Hospital Course: Final diagnosis Chest pain, likely unstable angina, ACS ruled out Dizziness History of coronary artery disease History of COPD, not in exacerbation Hypertension Hyperlipidemia History of mitral valve prolapse with moderate mitral regurgitation History of hiatal hernia Discharge disposition Patient is being discharged in a stable condition with guarded prognosis to home. Patient will follow-up with Dr. Mckeon in the outpatient setting upon discharge. Patient is to continue with current medication changes and outpatient follow-up with cardiology as well as pulmonary as scheduled. Total time taken is greater than 35 minutes. Hospital course This is a 62-year-old female who was recently admitted with elevated blood pressure with dizziness and chest pain being closely monitored. Cardiology following and had negative troponins ACS ruled out recommending 2D echo with no acute findings noted and has been cleared for discharge by cardiology recommending outpatient follow-up in 1 to 2 weeks. Patient reporting some mild shortness of breath with laying flat underwent CTA showing no evidence of PE or acute pulmonary process some LAD and RCA coronary artery calcifications and COPD with mild emphysema may be a minimal interstitial fibrosis at the lower lungs noted. Patient is above 95% on room air and has been instructed to follow-up with pulmonary outpatient. Please refer to cardiology documentation for further HPI. Currently no reports of chest pain, shortness of breath, or palpitations. Patient is afebrile. No reports of nausea or vomiting and patient is tolerating diet. Patient will be discharged home today. Guarded prognosis Physical exam: Gen: This is a 62-year-old female who is awake, alert and oriented x 3, well- developed, well-nourished HEENT: Head is atraumatic, normocephalic. Pupils equal, round. Sclerae is anicteric. NECK: Supple. No JVD. No lymphadenopathy. No thyromegaly. LUNGS: Diminished breath sounds bilaterally otherwise clear to auscultation. No wheezes or rhonchi. No intercostal retractions. HEART: Regular rate and rhythm. No murmur. ABDOMEN: Soft. Bowel sounds are present. No masses. No tenderness. EXTREMITIES: No pedal edema. No calf tenderness. NEUROLOGICAL: Patient is awake, alert and oriented x3. Cranial nerves 2 through 12 are grossly intact. Please refer to medication reconciliation sheet for a list of medications. The impression and plan of care has been dictated by Rosa M Hughes, Nurse Practitioner as directed. Dr. Kirill MD I have performed a history and examination and MDM of this patient, discussed the same with the dictator, and agree with the dictator's assessment and plan as written ,documented as a scribe. Based on total visit time, I have performed more than 50% of the visit. Patient Condition at Discharge: Stable Plan - Discharge Summary New Discharge Prescriptions: New Isosorbide Mononitrate [Ismo] 15 mg PO BID@0900,1600 30 Days #90 tab Continue Multivitamins, Thera [Multivitamin (formulary)] 1 tab PO DAILY Fish Oil/Dha/Epa [Fish Oil 1,200 mg Fish Oil] 1 cap PO DAILY Cholecalciferol [Vitamin D3 (25 Mcg = 1000 Iu)] 25 mcg PO DAILY Omeprazole [PriLOSEC] 20 mg PO BID carvediloL [Coreg*] 12.5 mg PO BID Pravastatin Sodium [Pravachol] 20 mg PO HS Baclofen [Lioresal] 10 mg PO BID PRN PRN Reason: Muscle Spasm Famotidine [Pepcid] 20 mg PO DAILY PRN PRN Reason: Heartburn diphenhydrAMINE HCL [Benadryl] 25 mg PO HS Nitroglycerin Sl Tabs [Nitrostat] 0.4 mg SUBLINGUAL Q5M PRN #30 tab PRN Reason: Chest Pain lisinopriL [Zestril] 5 mg PO BID Discontinued Isosorbide Mononitrate [Ismo] 10 mg PO BID Discharge Medication List Fish Oil/Dha/Epa [Fish Oil 1,200 mg Fish Oil] 1 cap PO DAILY 04/01/16 [History] Multivitamins, Thera [Multivitamin (formulary)] 1 tab PO DAILY 04/01/16 [History] Cholecalciferol [Vitamin D3 (25 Mcg = 1000 Iu)] 25 mcg PO DAILY 02/11/21 [History] Baclofen [Lioresal] 10 mg PO BID PRN 10/22/22 [History] Famotidine [Pepcid] 20 mg PO DAILY PRN 10/22/22 [History] Omeprazole [PriLOSEC] 20 mg PO BID 10/22/22 [History] diphenhydrAMINE HCL [Benadryl] 25 mg PO HS 10/22/22 [History] Nitroglycerin Sl Tabs [Nitrostat] 0.4 mg SUBLINGUAL Q5M PRN #30 tab 10/23/22 [Rx] Pravastatin Sodium [Pravachol] 20 mg PO HS 10/06/23 [History] carvediloL [Coreg*] 12.5 mg PO BID 10/06/23 [History] lisinopriL [Zestril] 5 mg PO BID 10/06/23 [History] Isosorbide Mononitrate [Ismo] 15 mg PO BID@0900,1600 30 Days #90 tab 10/08/23 [Rx] Follow up Appointment(s)/Referral(s): Scotty Duval MD [Medical Doctor] - 1 Week (Office will call patient with appointment ) Dorina Mckeon MD [Primary Care Provider] - 1-2 days Manpreet Villela DO [Doctor of Osteopathic Medicine] - 1 Week Patient Instructions/Handouts: Chest Pain (DC) Activity/Diet/Wound Care/Special Instructions: Okay for discharge Activity limited until follow-up Follow-up with primary care provider on discharge Follow-up with pulmonary outpatient Follow-up with cardiology outpatient Continue taking medications as prescribed Field Discharge Disposition: HOME SELF-CARE
== END 2023-10-08 16:01 | disposition home or self-care (01) ==
LOC: EC 17:04 → 6NMEDSUR 19:27
PROVIDERS: ADMIT Hospitalist; ATTEND Hospitalist
DX: R07.89 Other chest pain (principal); R42 Dizziness and giddiness; I25.10 Atherosclerotic heart disease of native coronary artery without angina pectoris; I10 Essential (primary) hypertension; E78.5 Hyperlipidemia, unspecified; I34.0 Nonrheumatic mitral (valve) insufficiency; K21.9 Gastro-esophageal reflux disease without esophagitis; F41.9 Anxiety disorder, unspecified; J44.9 Chronic obstructive pulmonary disease, unspecified; I34.1 Nonrheumatic mitral (valve) prolapse; K44.9 Diaphragmatic hernia without obstruction or gangrene; I25.2 Old myocardial infarction; Z87.891 Personal history of nicotine dependence; Z79.899 Other long term (current) drug therapy; Z79.82 Long term (current) use of aspirin; Z88.1 Allergy status to other antibiotic agents; Z88.5 Allergy status to narcotic agent
CPT/HCPCS: 99285; 36415; 93005; 93306; 80053; 80048 ×2; 83735; 84484 ×2; 85025 ×3; 85610; 85730; 71046; 93880; 71275; G0378 ×3; Q9967